=== PATIENT | female | born 1995 | race Caucasian/White ===

== ENCOUNTER 2016-09-30 19:18 | Emergency (ER) | payer MEDICAID ==
[2016-09-30 19:49] VITALS: BP 127/73
[2016-09-30] MEDS ORDERED: LORazepam 0.5 MG Tab PO ONE (20:21)
[2016-09-30] MEDS ORDERED: Ketorolac 30 MG/ML SDV IM ONE (23:00)
--- NOTE | 2016-09-30 23:09 | EDM.PDOC ---
ED [facility] Behavioral Health - General Chief Complaint: Behavioral/Psych Stated Complaint: SOB CHEST PAIN LEFT SIDE POSSIBLE ANXIETY ATTACK Time Seen by Provider: 09/30/16 20:28 Source of Information: Reports: Patient Exam Limitations: Reports: No limitations - History of Present Illness INITIAL COMMENTS - FREE TEXT/NARRATIVE: Patient presents for evaluation and treatment of shortness of breath and chest pain. Patient reports that the chest pain and shortness of breath is related to her anxiety. She feels she is having a panic attack. Additionally she reports tingling to the face lips and fingertips. She reports that she sees Dr. ricardo at [facility] who prescribes her something for her anxiety. - Related Data Allergies Allergy/AdvReac Type Severity Reaction Status Date / Time amoxicillin Allergy Hives Verified 05/09/16 20:22 Home Medications: Home Meds LORazepam [Ativan] 0.5 mg PO Q6H PRN #15 tablet 09/30/16 [Rx] Topiramate [Topamax] 100 mg PO DAILY 09/30/16 [History] Venlafaxine [Effexor] 150 mg PO DAILY 09/30/16 [History] busPIRone [Buspar] 10 mg PO TID 09/30/16 [History] Face Pain Score (Numeric/FACES): 8 Past Medical History HEENT History: Reports: Impaired vision Other HEENT History: glasses Respiratory History: Reports: Asthma Other Respiratory History: bronchiole asthma Gastrointestinal History: Reports: Gastritis Genitourinary History: Reports: UTI, recurrent Other Genitourinary History: uti 2012 Neurological History: Reports: Migraines Psychiatric History: Reports: ADHD, Anxiety, Depression, Other (see below) Other Psychiatric History: mood disorder Other Oncologic History: stomach biopsy - Past Surgical History HEENT Surgical History: Reports: Oral surgery Female Surgical History: Reports: None Social & Family History - Family History Family Medical History: Noncontributory - Tobacco Use Smoking Status *Q: Current Every Day Smoker Years of Tobacco use: 3 Packs/Tins Daily: 1 Used Tobacco, but Quit: Yes Month Tobacco Last Used: 1 month Second Hand Smoke Exposure: No - Caffeine Use Caffeine Use: Reports: None - Recreational Drug Use Recreational Drug Use: Yes Drug Use in Last 12 Months: Yes Recreational Drug Type: Reports: Methamphetamine Other Recreational Drug Type: used 9 months ago Recreational Drug Use Frequency: Monthly - Living Situation & Occupation Living situation: Reports: single, with significant other (Boyfriend), with family (Son) Occupation: unemployed ED ROS GENERAL - Review of Systems Review Of Systems: See Below Respiratory: Reports: Shortness of Breath Cardiovascular: Reports: Chest pain Neurological: Reports: Headache, Numbness, Tingling (face, lips, finger tips) Psychiatric: Reports: Anxiety ED EXAM, BEHAVIORAL HEALTH - Physical Exam Exam: See Below Exam Limited By: No limitations General Appearance: alert, WD/WN, no apparent distress Ears: normal external exam Throat/Mouth: Normal inspection, Normal voice, No airway compromise Respiratory/Chest: no respiratory distress, lungs clear, normal breath sounds Cardiovascular: normal peripheral pulses, regular rate, rhythm, no murmur Neurological: alert, normal mood/affect, normal cognition Psychiatric: alert, normal affect, normal cognition, normal mood Skin Exam: Warm, Dry COURSE, BEHAVIORAL HEALTH COMP - Course Vital Signs: Last Vital Signs Temp 36.9 C 09/30/16 19:47 Pulse 98 09/30/16 19:47 Resp 20 09/30/16 19:47 BP 127/73 09/30/16 19:47 Pulse Ox 97 09/30/16 19:47 Orders, Labs, Meds: Laboratory Tests 09/30/16 09/30/16 09/30/16 Range/Units 20:30 20:30 20:30 WBC 5.13 (3.98-10.04) K/mm3 RBC 4.08 (3.98-5.22) M/mm3 Hgb 12.6 (11.2-15.7) gm/L Hct 38.0 (34.1-44.9) % MCV 93.1 (79.4-94.8) fl MCH 30.9 (25.6-32.2) pg MCHC 33.2 (32.2-35.5) g/dl RDW Std Deviation 44.9 (36.4-46.3) fL Plt Count 221 (182-369) K/mm3 MPV 10.7 (9.4-12.3) fl Sodium 140 (136-145) mEq/L Potassium 3.5 (3.5-5.1) mEq/L Chloride 105 (98-107) mEq/L Carbon Dioxide 26 (21-32) mEq/L Anion Gap 12.5 (5-15) BUN 20 H (7-18) mg/dL Creatinine 0.7 (0.55-1.02) mg/dL Est Cr Clr Drug Dosing 100.98 mL/min Estimated GFR (MDRD) > 60 (>60) mL/min BUN/Creatinine Ratio 28.6 H (14-18) Glucose 84 (74-106) mg/dL Calcium 8.8 (8.5-10.1) mg/dL Total Bilirubin 0.6 (0.2-1.0) mg/dL AST 14 L (15-37) U/L ALT 16 (14-59) U/L Alkaline Phosphatase 78 (46-116) U/L Total Protein 7.0 (6.4-8.2) g/dl Albumin 4.0 (3.4-5.0) g/dl Globulin 3.0 gm/dL Albumin/Globulin Ratio 1.3 (1-2) TSH 3rd Generation 0.750 (0.516-4.13) uIU/mL Urine HCG, Qual Negative (NEGATIVE) Medications Discontinued Medications Generic Name Dose Route Start Last Admin Trade Name Tachoq PRN Reason Stop Dose Admin Ketorolac Tromethamine 30 mg 09/30/16 23:00 09/30/16 23:10 Toradol IM 09/30/16 23:01 30 mg ONETIME ONE Administration Lorazepam 0.5 mg 09/30/16 20:21 09/30/16 20:33 Ativan PO 09/30/16 20:22 0.5 mg ONETIME ONE Administration Re-Assessment/Re-Exam: 23:00 Patient's lab studies have returned. WBC is 5.13, hemoglobin 12.6 and platelets 221. Sodium 140, potassium 3.5 chloride 105. Anion gap is 2.5. HCG is negative. TSH is 0.75. Patient reports that her anxiety and symptoms have resolved. She states she is having a headache. Will give Toradol for headache relief. Departure - Departure Time of Disposition: 23:38 Disposition: Home, Self-Care 01 Condition: good Clinical Impression: Anxiety Prescriptions: LORazepam [Ativan] 0.5 mg PO Q6H PRN #15 tablet PRN Reason: Anxiety Instructions: Panic Attacks, [id number] Referrals: Tulio Solis MD [Primary Care Provider] - Forms: ED Department Discharge Additional Instructions: You were given medication in the ER that can affect your ability to drive and operate machinery. No driving operating machinery within 12 hours of taking. Take the Ativan one tab every 6-8 hours as needed for anxiety. Do not drive or operate machinery within 12 hours of taking ativan. Ativan can make you drowsy. Follow up with her psychiatrist, Dr. ricardo. Please return here should her symptoms change or worsen. Go home and rest in a dark quiet room.
== END 2016-10-01 00:30 | disposition home or self-care (01) ==
LOC: JD.ED 19:18
DX: F41.9 Anxiety disorder, unspecified (principal); F17.210 Nicotine dependence, cigarettes, uncomplicated; F32.9 Major depressive disorder, single episode, unspecified; Z98.890 Other specified postprocedural states; Z88.1 Allergy status to other antibiotic agents; Z79.899 Other long term (current) drug therapy
CPT/HCPCS: 36415; 80053; 81025; 84443; 85027; 96372; 99285; A9270; J1885; 99283

== ENCOUNTER 2019-09-08 12:44 | Emergency (ER) | payer MEDICAID ==
[2019-09-08] MEDS ORDERED: FLU Vacc QS2019-20(6MOS+)/PF 60 MCG/0.5 ML SYRINGE IM ONE (13:30)
--- NOTE | 2019-09-08 13:31 | EDM.PDOC ---
ED HPI GENERAL MEDICAL PROBLEM - General Chief Complaint: Abdominal Pain Stated Complaint: 8 wks pg, having issues wants to be checked out Time Seen by Provider: 09/08/19 12:53 Source of Information: Reports: Patient, Other (Friend) History Limitations: Reports: No Limitations - History of Present Illness INITIAL COMMENTS - FREE TEXT/NARRATIVE: Ms. Brown is a pleasant 24-year-old woman with a past medical history significant only for untreated gastritis, who now presents to the ED stating that she is about 8 weeks gestation, and has had intermittent pelvic cramps for the past 2 days. No vaginal bleeding. She states that she had a positive test about 2-1/2 weeks ago (early August), therefore visited a women 's clinic in [place]. She states that an obstetric ultrasound showed an empty gestational sac, therefore she was told that she either had a very early , a possible impending miscarriage, or a possible tubal . She has not followed up following that visit. She is here to have her checked out. She also reports a thick, white, and non-malodorous vaginal discharge for the past 2-1/2 weeks. LMP 07/12/2019 -> 8w 2d by dates, [place] 04/17/2020. . Her blood type is O-Pos. The patient states that she just moved up to this area a few days ago, and has not established a PCP. She states that she has seen Dr. Tulio Solis in the past, but does not have an dial mounter at this time. She has not received an influenza vaccine this season, but agreed to receive one here today. - Related Data Allergies Allergy/AdvReac Type Severity Reaction Status Date / Time amoxicillin Allergy Hives Verified 09/08/19 12:58 Home Meds: Home Meds Pnv No.103/Folic/Om3s/Fish Oil [ Gummies] 1 each PO DAILY 09/08/19 [ History] metroNIDAZOLE [Metrogel-Vaginal] 1 applicful VG BEDTIME #5 dose 09/08/19 [Rx] Past Medical History HEENT History: Reports: Impaired Vision Other HEENT History: wears glasses Gastrointestinal History: Reports: Gastritis (untreated) : 3 Para: 2 Psychiatric History: Reports: Addiction (methamphetamine), Anxiety (untreated), Depression (untreated) - Infectious Disease History Infectious Disease History: Reports: Human Papilloma Virus (HPV) - Past Surgical History HEENT Surgical History: Reports: Oral Surgery (wisdom teeth extraction) GI Surgical History: Reports: EGD (x 2) Female Surgical History: Reports: Other (See Below) (Cervical colposcopy) Social & Family History - Family History Family Medical History: Noncontributory - Tobacco Use Smoking Status *Q: Current Some Day Smoker Tobacco Use Within Last Twelve Months: Vaping (nicotine) Years of Tobacco use: 4 Packs/Tins Daily: 0.1 - Caffeine Use Caffeine Use: Reports: Soda - Alcohol Use Alcohol Use History: No - Recreational Drug Use Recreational Drug Use: Yes Drug Use in Last 12 Months: Yes Recreational Drug Type: Reports: Marijuana/Hashish (last smoked around Feb 2019) , Methamphetamine (last snorted, smoked early Aug 2019) - Living Situation & Occupation Living situation: Reports: Single, with Family Occupation: Unemployed ED ROS GENERAL - Review of Systems Review Of Systems: Comprehensive ROS is negative, except as noted in HPI. ED EXAM - Physical Exam Exam: See Below Exam Limited By: No Limitations General Appearance: Alert, WD/WN, No Apparent Distress Eye Exam: Bilateral Eye: EOMI, Normal Inspection Ears: Normal External Exam, Hearing Grossly Normal Nose: Normal Inspection Throat/Mouth: Normal Inspection, Normal Lips, Normal Voice, No Airway Compromise Head: Atraumatic, Normocephalic Neck: Normal Inspection, Full Range of Motion Respiratory/Chest: No Respiratory Distress, Lungs Clear, Normal Breath Sounds, No Accessory Muscle Use Cardiovascular: Normal Peripheral Pulses, Regular Rate, Rhythm, No Edema, No Gallop, No JVD, No Murmur, No Rub GI/Abdominal Exam: Normal Bowel Sounds, Soft, No Organomegaly, No Distention, No Abnormal Bruit, No Mass, Tender (Minimal, suprapubic only. Nontender elsewhere.) Rectal Exam: Deferred (Female) Exam: Normal External Exam, Normal Speculum Exam (parous cervix, closed), Vaginal Discharge (normal-appearing white vaginal discharge). No: Cervical Discharge, Cervical Lesions, Cervix Motion Tenderness, Vaginal Bleeding , Vaginal Lesions Back Exam: Normal Inspection, Full Range of Motion. No: CVA Tenderness (L), CVA Tenderness (R) Extremities: Normal Inspection, Normal Range of Motion, No Pedal Edema, Normal Capillary Refill Neurological: Alert, Oriented, Normal Cognition, No Motor/Sensory Deficits Psychiatric: Normal Affect Skin Exam: Warm, Dry, Intact, Normal Color, No Rash Course - Vital Signs Last Recorded V/S: Last Vital Signs Temp 36.8 C 09/08/19 12:53 Pulse 85 09/08/19 12:53 Resp 16 09/08/19 12:53 BP 109/70 09/08/19 12:53 Pulse Ox 100 09/08/19 12:53 - Orders/Labs/Meds Orders: Active Orders 24 hr Category Date Time Status Influenza Vaccine Charge [RC] .DISCHARGE Care 09/08/19 13:16 Active CULTURE GENITAL [RM] Stat Lab 09/08/19 13:30 Received Labs: Laboratory Tests 09/08/19 09/08/19 Range/Units 13:30 13:36 HCG, Quant 96204.0 mIU/mL C trachomatis DNA (PCR) Not detected N gonorrhoeae DNA (PCR) Not detected Meds: Medications Discontinued Medications Generic Name Dose Route Start Last Admin Trade Name Freq PRN Reason Stop Dose Admin Influenza Virus Vaccine 60 mcg 09/08/19 13:30 09/08/19 14:11 Fluzone Quad [id number] Syringe IM 09/08/19 13:31 60 mcg .ONCE ONE Administration - Re-Assessments/Exams Free Text/Narrative Re-Assessment/Exam: 09/08/19 13:20 As above, the patient would like to have her checked out. I have ordered a quantitative hCG and an obstetric ultrasound. Because of her complaint of a thick, white, non-malodorous vaginal discharge for the past 1/2 weeks, I will perform a pelvic exam and collected GC/chlamydia, wet prep, and a vaginal culture. 09/08/19 13:31 On pelvic examination, I found no abnormalities. Her cervix is parous, closed, with no lesions, bleeding, tissue, or discharge. Wet prep, vaginal culture, and GC/chlamydia collected. 09/08/19 14:53 The patient's quantitative hCG is 57,968. Her wet prep is remarkable for many yeast, few trichomonas, but positive for trichomonas antigen, no clue cells, moderate WBCs, no RBCs, and many epithelial cells. 09/08/19 15:13 Transvaginal ultrasound is read by Dr. Amador as: 1. Small subchorionic hemorrhage. 2. Single intrauterine gestation with dates as noted above. The body of the report indicates a gestational age of 7 weeks 1 day. Based on the above, I will recommend intravaginal MetroGel for 5 days. We are still waiting on the GC/chlamydia results. 09/08/19 16:43 Both the GC and chlamydia by PCR are negative. 09/08/19 16:49 Test results discussed with the patient. I will discharge her home with a prescription for MetroGel for 5 days and a referral to Women's Health. She will be given an influenza vaccine prior to discharge home. Departure - Departure Time of Disposition: 16:49 Disposition: Home, Self-Care 01 Condition: Good Clinical Impression: and not yet delivered in first trimester, Trichomonas infection, Subchorionic hematoma in first trimester - Discharge Information *PRESCRIPTION DRUG MONITORING PROGRAM REVIEWED*: Not Applicable *COPY OF PRESCRIPTION DRUG MONITORING REPORT IN PATIENT SALMA: Not Applicable Referrals: PCP,Bonilla [Primary Care Provider] - Janis Fountain NP [Nurse Practitioner] - Forms: ED Department Discharge Additional Instructions: You were seen in the emergency room for evaluation of your , associated with intermittent cramps for 2 days and a thick, white vaginal discharge. Work-up in the ER included a quantitative hCG, a pelvic culture and wet prep, a pelvic gonorrhea and chlamydia test, and a transvaginal ultrasound. Your quantitative hCG returned at 57,968, which is appropriate for your gestational age, estimated at 7 weeks 1 day by ultrasound. A small subchorionic bleed was found, but does not appear to be an imminent threat to your . Your wet prep found that you have trichomoniasis. A prescription for MetroGel has been sent to the [facility], located just south and across the [address] from [facility]. Insert 1 applicatorful of MetroGel intravaginally each night at bedtime for the next 5 nights. We recommend that you notify all of your sexual partners so that they can be treated, as well. You should not have sexual intercourse with any of your partners until at least 1 week after they have finished their antibiotic treatment. Follow-up with Janis Fountain NP, in the [facility] at the next available appointment. If any other problems, please do not hesitate to return to the ER. *You were given an influenza vaccine during your ER visit.* Sepsis Event Note - Evaluation Sepsis Screening Result: No Definite Risk - Focused Exam Vital Signs: Vital Signs Temp Pulse Resp BP Pulse Ox 09/08/19 12:53 36.8 C 85 16 109/70 100 Date Exam was Performed: 09/08/19 Time Exam was Performed: 16:43 - My Orders Last 24 Hours: My Active Orders 09/08/19 13:16 Influenza Vaccine Charge [RC] .DISCHARGE 09/08/19 13:30 CULTURE GENITAL [RM] Stat - Assessment/Plan Last 24 Hours: My Active Orders 09/08/19 13:16 Influenza Vaccine Charge [RC] .DISCHARGE 09/08/19 13:30 CULTURE GENITAL [RM] Stat
--- NOTE | 2019-09-08 15:08 | US ---
1st trimester obstetrical ultrasound: Multiple real-time images were obtained transvaginally. Comparison: No prior study for current . Dates: LMP: LMP given as 07/12/19, [place] 04/17/20, gestational age 8 weeks 2 days Current ultrasound: [place] 04/25/20, gestational age 7 weeks 1 day Single intrauterine gestation is seen. Amniotic fluid volume is normal. Small embryo and yolk sac are noted. Small subchorionic hemorrhage is noted. Maternal ovary on the left side is seen. Right maternal ovary not visualized. Measurements: Julian-rump length: 0.99 cm - 7 weeks 1 day Heart rate: 148 bpm Impression: 1. Small subchorionic hemorrhage. 2. Single intrauterine gestation with dates as noted above. Diagnostic code #2 This report was dictated in [place] Standard Time
[2019-09-08 15:29] LABS: C. TRACHOMATIS BY PCR NOT DETECTED; N. GONORRHOEAE BY PCR NOT DETECTED
[2019-09-08 17:16] VITALS: BP 110/63; PULSE 70
== END 2019-09-08 17:16 | disposition home or self-care (01) ==
LOC: JD.ED 12:44
DX: O20.8 Other hemorrhage in early pregnancy (principal); O98.311 Other infections with a predominantly sexual mode of transmission complicating pregnancy, first trimester; Z23 Encounter for immunization; O99.331 Smoking (tobacco) complicating pregnancy, first trimester; F17.210 Nicotine dependence, cigarettes, uncomplicated; Z88.1 Allergy status to other antibiotic agents; Z3A.01 Less than 8 weeks gestation of pregnancy
CPT/HCPCS: 36415; 76817; 76817-26; 84702; 87070; 87077; 87106; 87210; 87491; 87591; 87808; 90686; 99283; 99284-25; G0008

== ENCOUNTER 2020-04-09 09:12 | Inpatient (IN) | payer MEDICAID ==
[2020-04-09] MEDS ORDERED: Ondansetron 4 MG/2 ML SDV IVPUSH PRN (09:20)
[2020-04-09] MEDS ORDERED: Lactated Ringers 1,000 ML IV SCH ×2 (09:30→12:15)
[2020-04-09] MEDS ORDERED: Lactated Ringers 1,000 ML ONE (11:55)
[2020-04-09] MEDS ORDERED: Alum Hydrox/Mag Hydrox/Simeth 30 ML, Lidocaine 2% 15 ML PO ONE ×2 (12:00)
[2020-04-09] MEDS: Potassium Chloride 10 MEQ in Premix Bag 1 BAG IV SCH ×4 (12:30→15:38)
[2020-04-09] MEDS: Nalbuphine 10 MG/ML Syringe IVPUSH PRN ×3 (12:45→21:21)
[2020-04-09] MEDS ORDERED: Lidocaine 1% 50 ML MDV INJECT ONE (20:52)
[2020-04-09] MEDS ORDERED: Acetaminophen 325 MG Tab PO PRN (20:52)
[2020-04-09] MEDS ORDERED: Sodium Chloride 0.9% 10 ML Syringe FLUSH PRN (20:52)
[2020-04-09] MEDS ORDERED: Oxytocin/Lactated Ringers 10 UNIT/1,000 ML BAG IV SCH ×2 (21:00)
[2020-04-10] MEDS: Nalbuphine 10 MG/ML Syringe IVPUSH PRN ×3 (00:10→08:00)
[2020-04-10] MEDS: Calcium Carbonate 500 MG Tab.Chew PO PRN ×4 (00:15→22:10)
[2020-04-10] MEDS: Lactated Ringers 1,000 ML IV SCH ×2 (02:07→05:24)
[2020-04-10] MEDS ORDERED: ePHEDrine 50 MG/ML SDV IVPUSH PRN (04:54)
[2020-04-10] MEDS ORDERED: fentaNYL 100 MCG/2 ML SDV EPIDUR PRN (04:54)
[2020-04-10] MEDS ORDERED: diphenhydrAMINE 50 MG/ML SDV IVPUSH PRN (04:54)
[2020-04-10] MEDS ORDERED: Bupivacaine/fentaNYL/NS 100 ML Bag EPIDUR PRN (04:54)
--- NOTE | 2020-04-10 05:54 | PCM.PREANE ---
Preanesthetic Assessment - Procedure Proposed Procedure: Continuous Labor Epidural - Anesthesia/Transfusion/Family Hx Anesthesia History: Prior Anesthesia Without Reaction Transfusion History: No Prior Transfusion(s) - Review of Systems General: No Symptoms Pulmonary: No Symptoms Cardiovascular: No Symptoms Gastrointestinal: Nausea, Vomiting, Other (patient had/has food poisoning recently) Neurological: No Symptoms Other: Reports: None - Physical Assessment NPO Status Date: 04/10/20 (full stomach) Vital Signs: Last Vital Signs Temp 36.7 C 04/09/20 20:58 Pulse 83 04/09/20 20:58 Resp 16 04/09/20 20:58 BP 120/71 04/09/20 20:58 Pulse Ox 97 04/09/20 20:58 Height: 5 ft 3 in Weight: 69.853 kg ASA Class: 1 Mental Status: Alert & Oriented x3 Airway Class: Mallampati = 2 Dentition: Reports: Normal Dentition Thyro-Mental Finger Breadths: 3 Mouth Opening Finger Breadths: 3 ROM/Head Extension: Full Lungs: Clear to Auscultation, Normal Respiratory Effort Cardiovascular: Regular Rate, Regular Rhythm - Lab Values: Laboratory Last Values WBC 8.26 K/mm3 (3.98-10.04) 04/09/20 10:24 RBC 2.95 M/mm3 (3.98-5.22) L 04/09/20 10:24 Hgb 9.0 gm/dl (11.2-15.7) L 04/09/20 10:24 Hct 28.9 % (34.1-44.9) L 04/09/20 10:24 MCV 98.0 fl (79.4-94.8) H 04/09/20 10:24 MCH 30.5 pg (25.6-32.2) 04/09/20 10:24 MCHC 31.1 g/dl (32.2-35.5) L 04/09/20 10:24 RDW Std Deviation 49.9 fL (36.4-46.3) H 04/09/20 10:24 Plt Count 178 K/mm3 (182-369) L 04/09/20 10:24 MPV 11.3 fl (9.4-12.3) 04/09/20 10:24 Neut % (Auto) 71.2 % (34.0-71.1) H 04/09/20 10:24 Lymph % (Auto) 15.3 % (19.3-51.7) L 04/09/20 10:24 [place] % (Auto) 12.5 % (4.7-12.5) 04/09/20 10:24 Eos % (Auto) 0.2 (0.7-5.8) L 04/09/20 10:24 Baso % (Auto) 0.1 % (0.1-1.2) 04/09/20 10:24 Neut # (Auto) 5.88 K/mm3 (1.56-6.13) 04/09/20 10:24 Lymph # (Auto) 1.26 K/mm3 (1.18-3.74) 04/09/20 10:24 [place] # (Auto) 1.03 K/mm3 (0.24-0.36) H 04/09/20 10:24 Eos # (Auto) 0.02 K/mm3 (0.04-0.36) L 04/09/20 10:24 Baso # (Auto) 0.01 K/mm3 (0.01-0.08) 04/09/20 10:24 Sodium 133 mEq/L (136-145) L 04/09/20 10:24 Potassium 2.7 mEq/L (3.5-5.1) L 04/09/20 10:24 Chloride 97 mEq/L (98-107) L 04/09/20 10:24 Carbon Dioxide 25 mEq/L (21-32) 04/09/20 10:24 Anion Gap 13.7 (5-15) 04/09/20 10:24 BUN 10 mg/dL (7-18) 04/09/20 10:24 Creatinine 0.8 mg/dL (0.55-1.02) 04/09/20 10:24 Est Cr Clr Drug Dosing 89.70 mL/min 04/09/20 10:24 Estimated GFR (MDRD) > 60 mL/min (>60) 04/09/20 10:24 BUN/Creatinine Ratio 12.5 (14-18) L 04/09/20 10:24 Glucose 81 mg/dL (74-106) 04/09/20 10:24 Calcium 10.0 mg/dL (8.5-10.1) 04/09/20 10:24 Total Bilirubin 0.7 mg/dL (0.2-1.0) 04/09/20 10:24 AST 17 U/L (15-37) 04/09/20 10:24 ALT 17 U/L (14-59) 04/09/20 10:24 Alkaline Phosphatase 108 U/L (46-116) 04/09/20 10:24 Total Protein 6.1 g/dl (6.4-8.2) L 04/09/20 10:24 Albumin 2.7 g/dl (3.4-5.0) L 04/09/20 10:24 Globulin 3.4 gm/dL 04/09/20 10:24 Albumin/Globulin Ratio 0.8 (1-2) L 04/09/20 10:24 Urine Color Yellow (Yellow) 04/09/20 09:20 Urine Appearance Clear (Clear) 04/09/20 09:20 Urine pH 6.0 (5.0-8.0) 04/09/20 09:20 Ur Specific [place] > or = 1.030 (1.005-1.030) 04/09/20 09:20 Urine Protein Trace (Negative) H 04/09/20 09:20 Urine Glucose (UA) Negative (Negative) 04/09/20 09:20 Urine Ketones 4+ (Negative) H 04/09/20 09:20 Urine Occult Blood Negative (Negative) 04/09/20 09:20 Urine Nitrite Negative (Negative) 04/09/20 09:20 Urine Bilirubin Negative (Negative) 04/09/20 09:20 Urine Urobilinogen 0.2 (0.2-1.0) 04/09/20 09:20 Ur Leukocyte Esterase 1+ (Negative) H 04/09/20 09:20 Urine RBC 0-5 /hpf (0-5) 04/09/20 09:20 Urine WBC 10-20 /hpf (0-5) H 04/09/20 09:20 Ur Epithelial Cells 10-20 /hpf (0-5) H 04/09/20 09:20 Urine Bacteria Few /hpf (FEW) 04/09/20 09:20 Urine Mucus Not seen /hpf (FEW) 04/09/20 09:20 Urine Opiates Screen Negative (ADMWAM=411) 04/09/20 10:30 Ur Buprenorphine Scrn Negative (CUTOFF=10) 04/09/20 10:30 Ur Oxycodone Screen Negative (TEA3EQ=723) 04/09/20 10:30 Urine Methadone Screen Negative (ZYDCWP=805) 04/09/20 10:30 Ur Propoxyphene Screen Negative (WCPZJM=484) 04/09/20 10:30 Ur Barbiturates Screen Negative (OLHXOM=411) 04/09/20 10:30 Ur Tricyclics Screen Negative (ETANLQ=952) 04/09/20 10:30 Ur Phencyclidine Scrn Negative (CUTOFF=25) 04/09/20 10:30 Ur Amphetamine Screen Negative (EUNLFL=943) 04/09/20 10:30 U Methamphetamines Scrn Negative (PGHPWG=938) 04/09/20 10:30 U Benzodiazepines Scrn Negative (RUWUXA=734) 04/09/20 10:30 U Cocaine Metab Screen Negative (PYEQHX=759) 04/09/20 10:30 U Marijuana (THC) Screen Presumptive positive (CUTOFF=50) H 04/09/20 10:30 RPR Non-reactive (NONREACTIVE) 04/09/20 21:15 SARS-CoV-2 RNA (LEESA) Negative (NEGATIVE) 04/09/20 21:13 - Allergies Allergies/Adverse Reactions: Allergies Allergy/AdvReac Type Severity Reaction Status Date / Time amoxicillin Allergy Hives Verified 04/09/20 21:01 - Acknowledgements Anesthesia Type Planned: Epidural Pt an Appropriate Candidate for the Planned Anesthesia: Yes Alternatives and Risks of Anesthesia Discussed w Pt/Guardian: Yes Pt/Guardian Understands and Agrees with Anesthesia Plan: Yes PreAnesthesia Questionnaire - Past Health History Medical/Surgical History: Denies Medical/Surgical History HEENT History: Reports: Impaired Vision Other HEENT History: wears glasses Cardiovascular History: Reports: None Respiratory History: Reports: Asthma Other Respiratory History: bronchiole asthma Gastrointestinal History: Reports: Gastritis, Other (See Below) Other Gastrointestinal History: history of gallbladder complications needs tohave gallbladder removed Genitourinary History: Reports: UTI, Recurrent Other Genitourinary History: uti 2013 [employer] History: Reports: Musculoskeletal History: Reports: None Neurological History: Reports: Migraines Psychiatric History: Reports: Addiction, Anxiety, Depression, Other (See Below) Other Psychiatric History: boarderline personality disorder. history of depression Endocrine/Metabolic History: Reports: None Hematologic History: Reports: None Immunologic History: Reports: None Other Oncologic History: stomach biopsy Dermatologic History: Reports: None - Infectious Disease History Infectious Disease History: Reports: Human Papilloma Virus (HPV) - Past Surgical History HEENT Surgical History: Reports: Oral Surgery GI Surgical History: Reports: EGD Female Surgical History: Reports: Other (See Below) - SUBSTANCE USE Smoking Status *Q: Former Smoker Tobacco Use Within Last Twelve Months: Vaping Second Hand Smoke Exposure: Yes Recreational Drug Use History: No - HOME MEDS Home Medications: Home Meds Pnv No.95/Ferrous Fum/Folic AC [ Tablet] 1 each PO DAILY 04/06/20 [History] Ondansetron [Zofran] 4 mg PO Q4H PRN 04/09/20 [History] Promethazine [Phenergan] 12.5 mg PO Q6H PRN 04/09/20 [History] - CURRENT (IN HOUSE) MEDS Current Meds: Current Medications Acetaminophen (Tylenol) 650 mg PO Q4H PRN PRN Reason: Pain (Mild 1-3) and fever Calcium Carbonate/Glycine (Tums) 1,000 mg PO Q2H PRN PRN Reason: Indigestion Last Admin: 04/10/20 00:15 Dose: 1,000 mg Documented by: Diphenhydramine HCl (Benadryl) 25 mg IVPUSH Q6H PRN PRN Reason: pruritis Ephedrine Sulfate (Ephedrine Sulfate) 5 mg IVPUSH ASDIRECTED PRN PRN Reason: Hypotension Fentanyl (Sublimaze) 100 mcg EPIDUR Q3H PRN PRN Reason: Pain Last Admin: 04/10/20 05:12 Dose: 100 mcg Documented by: Fentanyl/Bupivacaine HCl (Fentanyl/Bupivacaine/Ns 2 Mcg-0.125% 100 Ml) 100 ml EPIDUR ASDIRECTED PRN PRN Reason: Pain Last Admin: 04/10/20 05:13 Dose: 100 ml Documented by: Lactated Ringer's (Ringers, Lactated) 1,000 mls @ 100 mls/hr IV ASDIRECTED LOREN Last Admin: 04/10/20 05:24 Dose: 100 mls/hr Documented by: Oxytocin/Lactated Ringer's (Pitocin In Lr 10 Units/1,000 Ml) 10 unit in 1,000 mls @ 12 mls/hr IV TITRATE LOREN; Protocol Last Titration: 04/10/20 05:30 Dose: 6 munits/min, 36 mls/hr Documented by: Oxytocin/Lactated Ringer's (Pitocin In Lr 10 Units/1,000 Ml) 10 unit in 1,000 mls @ 500 mls/hr IV .CONTINUOUS LOREN Nalbuphine HCl (Nubain) 10 mg IVPUSH Q2H PRN PRN Reason: Pain Last Admin: 04/10/20 02:10 Dose: 10 mg Documented by: Ondansetron HCl (Zofran) 4 mg IVPUSH Q4H PRN PRN Reason: Nausea/Vomiting Last Admin: 04/09/20 09:47 Dose: 4 mg Documented by: Sodium Chloride (Saline Flush) 10 ml FLUSH ASDIRECTED PRN PRN Reason: Keep Vein Open Discontinued Medications Al Hydroxide/Mg Hydroxide 30 (ml/ Lidocaine HCl 15 ml) 0 ml PO ONETIME ONE Stop: 04/09/20 12:01 Last Admin: 04/09/20 12:00 Dose: 30 ml Documented by: Lactated Ringer's (Ringers, Lactated) 1,000 mls @ 500 mls/hr IV .BOLUS LOREN Last Admin: 04/09/20 09:46 Dose: 500 mls/hr Documented by: Lactated Ringer's (Ringers, Lactated) Confirm Administered Dose 1,000 mls @ as directed .ROUTE .STK-MED ONE Stop: 04/09/20 11:56 Last Admin: 04/09/20 21:26 Dose: Not Given Documented by: Lactated Ringer's (Ringers, Lactated) 1,000 mls @ 999 mls/hr IV .BOLUS LOREN Last Admin: 04/09/20 12:00 Dose: 999 mls/hr Documented by: Potassium Chloride 10 meq/ (Premix) 100 mls @ 100 mls/hr IV Q1H LOREN Stop: 04/09/20 16:14 Last Admin: 04/09/20 15:38 Dose: 100 mls/hr Documented by: Lidocaine HCl (Xylocaine 1%) 50 ml INJECT ONETIME ONE Stop: 04/09/20 20:53 Nalbuphine HCl (Nubain) 10 mg IVPUSH Q2H PRN PRN Reason: Pain Last Admin: 04/09/20 16:53 Dose: 10 mg Documented by:
--- NOTE | 2020-04-10 08:41 | PCM.LDHP ---
L&D History of Present Illness - General Date of Service: 04/09/20 Admit Problem/Dx: Patient Status Order with Admit Dx/Problem 04/09/20 09:20 Patient Status [ADT] Routine 04/09/20 22:15 Patient Status [ADT] Routine Admission Diagnosis/Problem Admission Diagnosis/Problem Source of Information: Patient History Limitations: Reports: No Limitations - History of Present Illness Introduction:: 25 year old at 37w1 was here for gastroenteritis vs gall bladder pain. Significant vomiting and requiring IV fluids. During k-run began having regular contractions and over 4 hours changed from 3cm to 5 cm so admitted for labor. Pain Score: 7 - Related Data Allergies/Adverse Reactions: Allergies Allergy/AdvReac Type Severity Reaction Status Date / Time amoxicillin Allergy Hives Verified 04/09/20 21:01 Home Medications: Home Meds Pnv No.95/Ferrous Fum/Folic AC [ Tablet] 1 each PO DAILY 04/06/20 [History] Ondansetron [Zofran] 4 mg PO Q4H PRN 04/09/20 [History] Promethazine [Phenergan] 12.5 mg PO Q6H PRN 04/09/20 [History] Past Medical History - Past Health History Medical/Surgical History: Denies Medical/Surgical History HEENT History: Reports: Impaired Vision Other HEENT History: wears glasses Cardiovascular History: Reports: None Respiratory History: Reports: Asthma Other Respiratory History: bronchiole asthma Gastrointestinal History: Reports: Gastritis, Other (See Below) Other Gastrointestinal History: history of gallbladder complications needs toha ve gallbladder removed Genitourinary History: Reports: UTI, Recurrent Other Genitourinary History: uti 2013 [employer] History: Reports: Musculoskeletal History: Reports: None Neurological History: Reports: Migraines Psychiatric History: Reports: Addiction, Anxiety, Depression, Other (See Below) Other Psychiatric History: boarderline personality disorder. history of depression Endocrine/Metabolic History: Reports: None Hematologic History: Reports: None Immunologic History: Reports: None Other Oncologic History: stomach biopsy Dermatologic History: Reports: None - Infectious Disease History Infectious Disease History: Reports: Human Papilloma Virus (HPV) - Past Surgical History HEENT Surgical History: Reports: Oral Surgery GI Surgical History: Reports: EGD Female Surgical History: Reports: Other (See Below) Social & Family History - Family History Family Medical History: Noncontributory - Tobacco Use Smoking Status *Q: Former Smoker Years of Tobacco use: 6 Used Tobacco, but Quit: Yes Month/Year Tobacco Last Used: 08/30/2019 Second Hand Smoke Exposure: Yes - Caffeine Use Caffeine Use: Reports: Soda - Recreational Drug Use Recreational Drug Use: No - Living Situation & Occupation Living situation: Reports: Single, with Family Occupation: Unemployed H&P Review of Systems - Review of Systems: Review Of Systems: See Below General: Reports: No Symptoms. Denies: Fever HEENT: Reports: No Symptoms Pulmonary: Reports: No Symptoms Cardiovascular: Reports: No Symptoms Gastrointestinal: Reports: Abdominal Pain, Nausea, Vomiting Genitourinary: Reports: No Symptoms Musculoskeletal: Reports: No Symptoms Skin: Reports: No Symptoms Psychiatric: Reports: No Symptoms Neurological: Reports: No Symptoms Hematologic/Lymphatic: Reports: No Symptoms Immunologic: Reports: No Symptoms L&D Exam - Exam Exam: See Below - Vital Signs Vital Signs: Last Vital Signs Temp 36.7 C 04/09/20 20:58 Pulse 83 04/09/20 20:58 Resp 16 04/09/20 20:58 BP 120/71 04/09/20 20:58 Pulse Ox 97 04/09/20 20:58 Weight: 69.853 kg - OB Specific Contraction Intensity: Moderate to Strong Movement: Active Heart Tones: Present Heart Tones per Min: 145 Heart Rate (FHR) Variability: Moderate (6-25 bmp) Presentation: Vertex - Aden Score Aden Score Cervix Position: Anterior Aden Score Effacement: >80% Aden Score Dilation: > 5 cm Aden Score 's Station: -2 - Exam General: Alert, Oriented HEENT: PERRLA, Conjunctiva Clear, EACs Clear, EOMI, Hearing Intact, Mucosa Moist & [place], Nares Patent, Normal Nasal Septum, Posterior Pharynx Clear, TMs Clear Neck: Supple, Trachea Midline Lungs: Clear to Auscultation, Normal Respiratory Effort Cardiovascular: Regular Rate, Regular Rhythm GI/Abdominal Exam: Normal Bowel Sounds, Soft, Non-Tender, No Organomegaly, No Distention, No Abnormal Bruit, No Mass, Pelvis Stable Genitourinary: Normal external exam, Normal bimanual exam Back Exam: Normal Inspection, Full Range of Motion Extremities: Normal Inspection, Normal Range of Motion, Non-Tender, No Pedal Edema, Normal Capillary Refill Skin: Warm, Dry, Intact Neurological: Cranial Nerves Intact, Reflexes Equal Bilateral Psychiatric: Alert, Normal Affect, Normal Mood - Patient Data Lab Results Last 24 hrs: Laboratory Results - last 24 hr 04/09/20 04/09/20 04/09/20 Range/Units 09:20 10:24 10:24 WBC 8.26 (3.98-10.04) K/mm3 RBC 2.95 L (3.98-5.22) M/mm3 Hgb 9.0 L (11.2-15.7) gm/dl Hct 28.9 L (34.1-44.9) % MCV 98.0 H (79.4-94.8) fl MCH 30.5 (25.6-32.2) pg MCHC 31.1 L (32.2-35.5) g/dl RDW Std Deviation 49.9 H (36.4-46.3) fL Plt Count 178 L (182-369) K/mm3 MPV 11.3 (9.4-12.3) fl Neut % (Auto) 71.2 H (34.0-71.1) % Lymph % (Auto) 15.3 L (19.3-51.7) % [place] % (Auto) 12.5 (4.7-12.5) % Eos % (Auto) 0.2 L (0.7-5.8) Baso % (Auto) 0.1 (0.1-1.2) % Neut # (Auto) 5.88 (1.56-6.13) K/mm3 Lymph # (Auto) 1.26 (1.18-3.74) K/mm3 [place] # (Auto) 1.03 H (0.24-0.36) K/mm3 Eos # (Auto) 0.02 L (0.04-0.36) K/mm3 Baso # (Auto) 0.01 (0.01-0.08) K/mm3 Sodium 133 L (136-145) mEq/L Potassium 2.7 L (3.5-5.1) mEq/L Chloride 97 L (98-107) mEq/L Carbon Dioxide 25 (21-32) mEq/L Anion Gap 13.7 (5-15) BUN 10 (7-18) mg/dL Creatinine 0.8 (0.55-1.02) mg/dL Est Cr Clr Drug Dosing 89.70 mL/min Estimated GFR (MDRD) > 60 (>60) mL/min BUN/Creatinine Ratio 12.5 L (14-18) Glucose 81 (74-106) mg/dL Calcium 10.0 (8.5-10.1) mg/dL Total Bilirubin 0.7 (0.2-1.0) mg/dL AST 17 (15-37) U/L ALT 17 (14-59) U/L Alkaline Phosphatase 108 (46-116) U/L Total Protein 6.1 L (6.4-8.2) g/dl Albumin 2.7 L (3.4-5.0) g/dl Globulin 3.4 gm/dL Albumin/Globulin Ratio 0.8 L (1-2) Urine Color Yellow (Yellow) Urine Appearance Clear (Clear) Urine pH 6.0 (5.0-8.0) Ur Specific [place] > or = 1.030 (1.005-1.030) Urine Protein Trace H (Negative) Urine Glucose (UA) Negative (Negative) Urine Ketones 4+ H (Negative) Urine Occult Blood Negative (Negative) Urine Nitrite Negative (Negative) Urine Bilirubin Negative (Negative) Urine Urobilinogen 0.2 (0.2-1.0) Ur Leukocyte Esterase 1+ H (Negative) Urine RBC 0-5 (0-5) /hpf Urine WBC 10-20 H (0-5) /hpf Ur Epithelial Cells 10-20 H (0-5) /hpf Urine Bacteria Few (FEW) /hpf Urine Mucus Not seen (FEW) /hpf Urine Opiates Screen (GGPCVY=165) Ur Buprenorphine Scrn (CUTOFF=10) Ur Oxycodone Screen (MOZ8SL=001) Urine Methadone Screen (PPCBHR=177) Ur Propoxyphene Screen (WRHYPN=222) Ur Barbiturates Screen (CQETRW=375) Ur Tricyclics Screen (GJLUTI=820) Ur Phencyclidine Scrn (CUTOFF=25) Ur Amphetamine Screen (DTOUKF=186) U Methamphetamines Scrn (OZAZPB=098) U Benzodiazepines Scrn (DPJHXT=568) U Cocaine Metab Screen (TMNUQL=975) U Marijuana (THC) Screen (CUTOFF=50) RPR (NONREACTIVE) SARS-CoV-2 RNA (LEESA) (NEGATIVE) 04/09/20 04/09/20 04/09/20 Range/Units 10:30 21:13 21:15 WBC (3.98-10.04) K/mm3 RBC (3.98-5.22) M/mm3 Hgb (11.2-15.7) gm/dl Hct (34.1-44.9) % MCV (79.4-94.8) fl MCH (25.6-32.2) pg MCHC (32.2-35.5) g/dl RDW Std Deviation (36.4-46.3) fL Plt Count (182-369) K/mm3 MPV (9.4-12.3) fl Neut % (Auto) (34.0-71.1) % Lymph % (Auto) (19.3-51.7) % [place] % (Auto) (4.7-12.5) % Eos % (Auto) (0.7-5.8) Baso % (Auto) (0.1-1.2) % Neut # (Auto) (1.56-6.13) K/mm3 Lymph # (Auto) (1.18-3.74) K/mm3 [place] # (Auto) (0.24-0.36) K/mm3 Eos # (Auto) (0.04-0.36) K/mm3 Baso # (Auto) (0.01-0.08) K/mm3 Sodium (136-145) mEq/L Potassium (3.5-5.1) mEq/L Chloride (98-107) mEq/L Carbon Dioxide (21-32) mEq/L Anion Gap (5-15) BUN (7-18) mg/dL Creatinine (0.55-1.02) mg/dL Est Cr Clr Drug Dosing mL/min Estimated GFR (MDRD) (>60) mL/min BUN/Creatinine Ratio (14-18) Glucose (74-106) mg/dL Calcium (8.5-10.1) mg/dL Total Bilirubin (0.2-1.0) mg/dL AST (15-37) U/L ALT (14-59) U/L Alkaline Phosphatase (46-116) U/L Total Protein (6.4-8.2) g/dl Albumin (3.4-5.0) g/dl Globulin gm/dL Albumin/Globulin Ratio (1-2) Urine Color (Yellow) Urine Appearance (Clear) Urine pH (5.0-8.0) Ur Specific [place] (1.005-1.030) Urine Protein (Negative) Urine Glucose (UA) (Negative) Urine Ketones (Negative) Urine Occult Blood (Negative) Urine Nitrite (Negative) Urine Bilirubin (Negative) Urine Urobilinogen (0.2-1.0) Ur Leukocyte Esterase (Negative) Urine RBC (0-5) /hpf Urine WBC (0-5) /hpf Ur Epithelial Cells (0-5) /hpf Urine Bacteria (FEW) /hpf Urine Mucus (FEW) /hpf Urine Opiates Screen Negative (BSXRHI=343) Ur Buprenorphine Scrn Negative (CUTOFF=10) Ur Oxycodone Screen Negative (FTD5JH=138) Urine Methadone Screen Negative (TCQYPE=580) Ur Propoxyphene Screen Negative (PHIYUT=070) Ur Barbiturates Screen Negative (MBCTUM=085) Ur Tricyclics Screen Negative (KNOKHM=753) Ur Phencyclidine Scrn Negative (CUTOFF=25) Ur Amphetamine Screen Negative (AOIJFD=893) U Methamphetamines Scrn Negative (AILEPS=709) U Benzodiazepines Scrn Negative (VTDCIH=808) U Cocaine Metab Screen Negative (RQNJWF=237) U Marijuana (THC) Screen Presumptive positive H (CUTOFF=50) RPR Non-reactive (NONREACTIVE) SARS-CoV-2 RNA (LEESA) Negative (NEGATIVE) Result Diagrams: 04/09/20 10:24 04/09/20 10:24 Problem List Initiated/Reviewed/Updated: Yes Orders Last 24hrs: Active Orders 24 hr Category Date Time Status Patient Status [ADT] Routine ADT 04/09/20 22:15 Active Activity as Tolerated [RC] PFP Care 04/09/20 20:52 Active Communication Order [RC] ASDIRECTED Care 04/09/20 20:52 Active Heart Tones [RC] ASDIRECTED Care 04/09/20 20:52 Active Notify Provider [RC] ASDIRECTED Care 04/10/20 04:54 Active Notify Provider [RC] PFP Care 04/09/20 20:52 Active Notify Provider [RC] PRN Care 04/09/20 20:52 Active Peripheral IV Care [RC] . DIRECTED Care 04/09/20 20:52 Active Up ad Nadia [RC] ASDIRECTED Care 04/09/20 09:21 Active Vital Signs [RC] PER UNIT ROUTINE Care 04/09/20 09:20 Active Vital Signs [RC] PER UNIT ROUTINE Care 04/09/20 20:52 Active BLOOD BANK HOLD SPECIMEN [BBK] Stat Lab 04/09/20 10:30 Received CANNABINOID (THC) CONFIRM, UR Stat Lab 04/10/20 07:08 Received Acetaminophen [TylenoL] Med 04/09/20 20:52 Active 650 mg PO Q4H PRN Bupivacaine/fentaNYL/NS [fentaNYL/Bupivacaine/NS 2 MCG- Med 04/10/20 04:54 Active 0.125% 100 ML] 100 ml EPIDUR ASDIRECTED PRN Calcium Carbonate [Tums] Med 04/09/20 20:52 Active 1,000 mg PO Q2H PRN Lactated Ringers [Ringers, Lactated] 1,000 ml Med 04/09/20 21:00 Active IV ASDIRECTED Nalbuphine [Nubain] Med 04/09/20 20:52 Active 10 mg IVPUSH Q2H PRN Ondansetron [Zofran] Med 04/09/20 09:20 Active 4 mg IVPUSH Q4H PRN Oxytocin/Lactated Ringers [Pitocin in LR 10 Units/1,000 Med 04/09/20 21:00 Active ML] 10 unit in 1,000 ml IV .CONTINUOUS Oxytocin/Lactated Ringers [Pitocin in LR 10 Units/1,000 Med 04/09/20 21:00 Active ML] 10 unit in 1,000 ml IV TITRATE Sodium Chloride 0.9% [Saline Flush] Med 04/09/20 20:52 Active 10 ml FLUSH ASDIRECTED PRN diphenhydrAMINE [Benadryl] Med 04/10/20 04:54 Active 25 mg IVPUSH Q6H PRN ePHEDrine [ePHEDrine sulfate] Med 04/10/20 04:54 Active 5 mg IVPUSH ASDIRECTED PRN fentaNYL [Sublimaze] Med 04/10/20 04:54 Active 100 mcg EPIDUR Q3H PRN Electronic Heart Tones Ext w TOCO [WOMSER] Oth 04/09/20 20:52 Ordered Routine Electronic Heart Tones Internal [WOMSER] Per Unit Oth 04/09/20 20:52 Ordered Routine Peripheral IV Insertion Adult [OM.PC] Routine Oth 04/09/20 20:52 Ordered Resuscitation Status Routine Resus Stat 04/09/20 20:52 Ordered Medication Orders Acetaminophen (Tylenol) 650 mg PO Q4H PRN PRN Reason: Pain (Mild 1-3) and fever Calcium Carbonate/Glycine (Tums) 1,000 mg PO Q2H PRN PRN Reason: Indigestion Last Admin: 04/10/20 06:36 Dose: 1,000 mg Documented by: Admin: 04/10/20 00:15 Dose: 1,000 mg Documented by: AGA Diphenhydramine HCl (Benadryl) 25 mg IVPUSH Q6H PRN PRN Reason: pruritis Ephedrine Sulfate (Ephedrine Sulfate) 5 mg IVPUSH ASDIRECTED PRN PRN Reason: Hypotension Fentanyl (Sublimaze) 100 mcg EPIDUR Q3H PRN PRN Reason: Pain Last Admin: 04/10/20 05:12 Dose: 100 mcg Documented by: AGA Fentanyl/Bupivacaine HCl (Fentanyl/Bupivacaine/Ns 2 Mcg-0.125% 100 Ml) 100 ml EPIDUR ASDIRECTED PRN PRN Reason: Pain Last Admin: 04/10/20 05:13 Dose: 100 ml Documented by: AGA Lactated Ringer's (Ringers, Lactated) 1,000 mls @ 100 mls/hr IV ASDIRECTED LOREN Last Admin: 04/10/20 05:24 Dose: 100 mls/hr Documented by: Infusion: 04/10/20 05:24 Dose: 100 mls/hr Documented by: Admin: 04/10/20 02:07 Dose: 100 mls/hr Documented by: AGA Oxytocin/Lactated Ringer's (Pitocin In Lr 10 Units/1,000 Ml) 10 unit in 1,000 mls @ 12 mls/hr IV TITRATE LOREN; Protocol Last Titration: 04/10/20 06:30 Dose: 10 munits/min, 60 mls/hr Documented by: Titration: 04/10/20 06:00 Dose: 8 munits/min, 48 mls/hr Documented by: Titration: 04/10/20 05:30 Dose: 6 munits/min, 36 mls/hr Documented by: Titration: 04/10/20 05:00 Dose: 4 munits/min, 24 mls/hr Documented by: Admin: 04/10/20 04:29 Dose: 2 munits/min, 12 mls/hr Documented by: AGA Oxytocin/Lactated Ringer's (Pitocin In Lr 10 Units/1,000 Ml) 10 unit in 1,000 mls @ 500 mls/hr IV .CONTINUOUS LOREN Nalbuphine HCl (Nubain) 10 mg IVPUSH Q2H PRN PRN Reason: Pain Last Admin: 04/10/20 08:00 Dose: 10 mg Documented by: Admin: 04/10/20 02:10 Dose: 10 mg Documented by: Admin: 04/10/20 00:10 Dose: 10 mg Documented by: Admin: 04/09/20 21:21 Dose: 10 mg Documented by: AGA Ondansetron HCl (Zofran) 4 mg IVPUSH Q4H PRN PRN Reason: Nausea/Vomiting Last Admin: 04/09/20 09:47 Dose: 4 mg Documented by: BRENDEN Sodium Chloride (Saline Flush) 10 ml FLUSH ASDIRECTED PRN PRN Reason: Keep Vein Open Assessment/Plan Comment:: Term labor. Cervical change. Admit. Anesthesia per pt request. Anticipate
--- NOTE | 2020-04-10 08:42 | PCM.PNLD ---
Labor Progress Note - VS & Meds Vital Signs: Last Vital Signs Temp 36.7 C 04/09/20 20:58 Pulse 83 04/09/20 20:58 Resp 16 04/09/20 20:58 BP 120/71 04/09/20 20:58 Pulse Ox 97 04/09/20 20:58 Active Medications: Current Medications Acetaminophen (Tylenol) 650 mg PO Q4H PRN PRN Reason: Pain (Mild 1-3) and fever Calcium Carbonate/Glycine (Tums) 1,000 mg PO Q2H PRN PRN Reason: Indigestion Last Admin: 04/10/20 06:36 Dose: 1,000 mg Documented by: Diphenhydramine HCl (Benadryl) 25 mg IVPUSH Q6H PRN PRN Reason: pruritis Ephedrine Sulfate (Ephedrine Sulfate) 5 mg IVPUSH ASDIRECTED PRN PRN Reason: Hypotension Fentanyl (Sublimaze) 100 mcg EPIDUR Q3H PRN PRN Reason: Pain Last Admin: 04/10/20 05:12 Dose: 100 mcg Documented by: Fentanyl/Bupivacaine HCl (Fentanyl/Bupivacaine/Ns 2 Mcg-0.125% 100 Ml) 100 ml EPIDUR ASDIRECTED PRN PRN Reason: Pain Last Admin: 04/10/20 05:13 Dose: 100 ml Documented by: Lactated Ringer's (Ringers, Lactated) 1,000 mls @ 100 mls/hr IV ASDIRECTED LOREN Last Admin: 04/10/20 05:24 Dose: 100 mls/hr Documented by: Oxytocin/Lactated Ringer's (Pitocin In Lr 10 Units/1,000 Ml) 10 unit in 1,000 mls @ 12 mls/hr IV TITRATE LOREN; Protocol Last Titration: 04/10/20 06:30 Dose: 10 munits/min, 60 mls/hr Documented by: Oxytocin/Lactated Ringer's (Pitocin In Lr 10 Units/1,000 Ml) 10 unit in 1,000 mls @ 500 mls/hr IV .CONTINUOUS LOREN Nalbuphine HCl (Nubain) 10 mg IVPUSH Q2H PRN PRN Reason: Pain Last Admin: 04/10/20 08:00 Dose: 10 mg Documented by: Ondansetron HCl (Zofran) 4 mg IVPUSH Q4H PRN PRN Reason: Nausea/Vomiting Last Admin: 04/09/20 09:47 Dose: 4 mg Documented by: Sodium Chloride (Saline Flush) 10 ml FLUSH ASDIRECTED PRN PRN Reason: Keep Vein Open Discontinued Medications Al Hydroxide/Mg Hydroxide 30 (ml/ Lidocaine HCl 15 ml) 0 ml PO ONETIME ONE Stop: 04/09/20 12:01 Last Admin: 04/09/20 12:00 Dose: 30 ml Documented by: Lactated Ringer's (Ringers, Lactated) 1,000 mls @ 500 mls/hr IV .BOLUS LOREN Last Admin: 04/09/20 09:46 Dose: 500 mls/hr Documented by: Lactated Ringer's (Ringers, Lactated) Confirm Administered Dose 1,000 mls @ as directed .ROUTE .STK-MED ONE Stop: 04/09/20 11:56 Last Admin: 04/09/20 21:26 Dose: Not Given Documented by: Lactated Ringer's (Ringers, Lactated) 1,000 mls @ 999 mls/hr IV .BOLUS LOREN Last Admin: 04/09/20 12:00 Dose: 999 mls/hr Documented by: Potassium Chloride 10 meq/ (Premix) 100 mls @ 100 mls/hr IV Q1H LOREN Stop: 04/09/20 16:14 Last Admin: 04/09/20 15:38 Dose: 100 mls/hr Documented by: Lidocaine HCl (Xylocaine 1%) 50 ml INJECT ONETIME ONE Stop: 04/09/20 20:53 Nalbuphine HCl (Nubain) 10 mg IVPUSH Q2H PRN PRN Reason: Pain Last Admin: 04/09/20 16:53 Dose: 10 mg Documented by: - Uterine Contractions Uterine Monitoring Mode: External [place] Contraction Intensity: Moderate to Strong Uterine Resting Tone: Soft - Monitoring Monitor Mode: External Ultrasound Heart Rate (FHR) Baseline: 145 Heart Rate (FHR) Variability: Moderate (6-25 bmp) Accelerations: Present, 15x15 Decelerations: None Strip Review: Category I - Vaginal Exam Dilation (cm): 5.5 Effacement (Percent): 80 Station: -2 Cervical Position: Anterior - Labor Progress (Free Text) Labor Progress: Good progress. AROM clear fluid.
--- NOTE | 2020-04-10 08:45 | PCM.SN.2 ---
- Free Text/Narrative Note: Stage I - Patient presented with nausea, vomiting and began having more regular contractions with cervical change. Epidural anesthesia. AROM cleawr fluid. Progressed to complete with overall reassuring heart tones. Stage II - of viable female, weight pending, apgars 8/9 at 0827. Head delivered in controlled manner over intact perineum. Body and shoulders atraumatically. To maternal abdomen. Positive cry. Cord clamped and cut at one minute. Cord blood collected. Stage III - of intact placenta. 3vc. No laceration. EBL 200.
[2020-04-10] MEDS ORDERED: Benzocaine/Menthol 20%-0.5% Spray 56 GM Canister TOP PRN (09:18)
[2020-04-10] MEDS ORDERED: Witch Hazel Medicated Pads 40/Jar TOP PRN (09:18)
[2020-04-10] MEDS: Ibuprofen 600 MG Tab PO PRN ×3 (09:35→22:08)
[2020-04-10] MEDS ORDERED: Acetaminophen 325 MG Tab PO PRN (21:26)
[2020-04-11] MEDS ORDERED: Ondansetron 4 MG in Sodium Chloride 0.9% 50 ML IV ONE (00:15)
[2020-04-11] MEDS ORDERED: Nalbuphine 10 MG/ML Syringe IVPUSH ONE (00:16)
[2020-04-11] MEDS ORDERED: Sodium Chloride 0.9% 1,000 ML IV ONE (00:17)
[2020-04-11] MEDS ORDERED: Sodium Chloride 0.9% 1,000 ML ONE (00:27)
[2020-04-11] MEDS ORDERED: Ondansetron 4 MG/2 ML SDV IVPUSH ONE (06:00)
[2020-04-11] MEDS ORDERED: Ondansetron 4 MG/2 ML SDV ONE (06:03)
--- NOTE | 2020-04-11 07:49 | PCM.PNPP ---
- General Info Date of Service: 04/11/20 Subjective Update: 25 year old . Complaining of abdominal pain and nausea. Functional Status: Reports: Pain Controlled - Review of Systems General: Reports: No Symptoms HEENT: Reports: No Symptoms Pulmonary: Reports: No Symptoms Cardiovascular: Reports: No Symptoms Gastrointestinal: Reports: No Symptoms Genitourinary: Reports: No Symptoms Musculoskeletal: Reports: No Symptoms Skin: Reports: No Symptoms Neurological: Reports: No Symptoms Psychiatric: Reports: No Symptoms - General Info Date of Service: 04/11/20 - Patient Data Vital Signs - Most Recent: Last Vital Signs Temp 37.0 C 04/11/20 04:07 Pulse 62 04/11/20 04:07 Resp 14 04/11/20 04:07 BP 135/97 H 04/11/20 04:07 Pulse Ox 100 04/11/20 04:07 Weight - Most Recent: 69.853 kg Lab Results - Last 24 Hours: Laboratory Results - last 24 hr 04/11/20 04/11/20 Range/Units 05:56 05:56 WBC 9.71 (3.98-10.04) K/mm3 RBC 3.10 L (3.98-5.22) M/mm3 Hgb 9.4 L (11.2-15.7) gm/dl Hct 30.3 L (34.1-44.9) % MCV 97.7 H (79.4-94.8) fl MCH 30.3 (25.6-32.2) pg MCHC 31.0 L (32.2-35.5) g/dl RDW Std Deviation 48.8 H (36.4-46.3) fL Plt Count 183 (182-369) K/mm3 MPV 11.6 (9.4-12.3) fl Neut % (Auto) 78.1 H (34.0-71.1) % Lymph % (Auto) 13.1 L (19.3-51.7) % [place] % (Auto) 7.8 (4.7-12.5) % Eos % (Auto) 0.3 L (0.7-5.8) Baso % (Auto) 0.1 (0.1-1.2) % Neut # (Auto) 7.58 H (1.56-6.13) K/mm3 Lymph # (Auto) 1.27 (1.18-3.74) K/mm3 [place] # (Auto) 0.76 H (0.24-0.36) K/mm3 Eos # (Auto) 0.03 L (0.04-0.36) K/mm3 Baso # (Auto) 0.01 (0.01-0.08) K/mm3 Sodium 139 (136-145) mEq/L Potassium 3.2 L (3.5-5.1) mEq/L Chloride 104 (98-107) mEq/L Carbon Dioxide 26 (21-32) mEq/L Anion Gap 12.2 (5-15) BUN 8 (7-18) mg/dL Creatinine 0.7 (0.55-1.02) mg/dL Est Cr Clr Drug Dosing 102.51 mL/min Estimated GFR (MDRD) > 60 (>60) mL/min BUN/Creatinine Ratio 11.4 L (14-18) Glucose 99 (74-106) mg/dL Calcium 7.8 L D (8.5-10.1) mg/dL Total Bilirubin 0.3 (0.2-1.0) mg/dL AST 19 (15-37) U/L ALT 18 (14-59) U/L Alkaline Phosphatase 90 (46-116) U/L Total Protein 5.1 L (6.4-8.2) g/dl Albumin 2.1 L (3.4-5.0) g/dl Globulin 3.0 gm/dL Albumin/Globulin Ratio 0.7 L (1-2) Med Orders - Current: Current Medications Acetaminophen (Tylenol) 650 mg PO Q6H PRN PRN Reason: Pain Last Admin: 04/10/20 21:34 Dose: 650 mg Documented by: Benzocaine/Menthol (Dermoplast Pain Relief [place]) 0 gm TOP ASDIRECTED PRN PRN Reason: Perineal Comfort Measure Calcium Carbonate/Glycine (Tums) 1,000 mg PO Q2HR PRN PRN Reason: Indigestion Last Admin: 04/10/20 22:10 Dose: 1,000 mg Documented by: Ibuprofen (Motrin) 600 mg PO Q6H PRN PRN Reason: Mild pain or fever Last Admin: 04/10/20 22:08 Dose: 600 mg Documented by: Debi Santana (Holackjn) 1 pad TOP ASDIRECTED PRN PRN Reason: Pain Discontinued Medications Acetaminophen (Tylenol) 650 mg PO Q4H PRN PRN Reason: Pain (Mild 1-3) and fever Calcium Carbonate/Glycine (Tums) 1,000 mg PO Q2H PRN PRN Reason: Indigestion Last Admin: 04/10/20 06:36 Dose: 1,000 mg Documented by: Al Hydroxide/Mg Hydroxide 30 (ml/ Lidocaine HCl 15 ml) 0 ml PO ONETIME ONE Stop: 04/09/20 12:01 Last Admin: 04/09/20 12:00 Dose: 30 ml Documented by: Diphenhydramine HCl (Benadryl) 25 mg IVPUSH Q6H PRN PRN Reason: pruritis Ephedrine Sulfate (Ephedrine Sulfate) 5 mg IVPUSH ASDIRECTED PRN PRN Reason: Hypotension Fentanyl (Sublimaze) 100 mcg EPIDUR Q3H PRN PRN Reason: Pain Last Admin: 04/10/20 05:12 Dose: 100 mcg Documented by: Fentanyl/Bupivacaine HCl (Fentanyl/Bupivacaine/Ns 2 Mcg-0.125% 100 Ml) 100 ml EPIDUR ASDIRECTED PRN PRN Reason: Pain Last Admin: 04/10/20 05:13 Dose: 100 ml Documented by: Lactated Ringer's (Ringers, Lactated) 1,000 mls @ 500 mls/hr IV .BOLUS LOREN Last Admin: 04/09/20 09:46 Dose: 500 mls/hr Documented by: Lactated Ringer's (Ringers, Lactated) Confirm Administered Dose 1,000 mls @ as directed .ROUTE .STK-MED ONE Stop: 04/09/20 11:56 Last Admin: 04/09/20 21:26 Dose: Not Given Documented by: Lactated Ringer's (Ringers, Lactated) 1,000 mls @ 999 mls/hr IV .BOLUS [place]ORNE Last Admin: 04/09/20 12:00 Dose: 999 mls/hr Documented by: Potassium Chloride 10 meq/ (Premix) 100 mls @ 100 mls/hr IV Q1H LOREN Stop: 04/09/20 16:14 Last Admin: 04/09/20 15:38 Dose: 100 mls/hr Documented by: Lactated Ringer's (Ringers, Lactated) 1,000 mls @ 100 mls/hr IV ASDIRECTED LOREN Last Admin: 04/10/20 05:24 Dose: 100 mls/hr Documented by: Oxytocin/Lactated Ringer's (Pitocin In Lr 10 Units/1,000 Ml) 10 unit in 1,000 mls @ 12 mls/hr IV TITRATE LOREN; Protocol Last Titration: 04/10/20 06:30 Dose: 10 munits/min, 60 mls/hr Documented by: Oxytocin/Lactated Ringer's (Pitocin In Lr 10 Units/1,000 Ml) 10 unit in 1,000 mls @ 500 mls/hr IV .CONTINUOUS LOREN Ondansetron HCl 4 mg/ Sodium (Chloride) 52 mls @ 100 mls/hr IV ONETIME ONE Stop: 04/11/20 00:47 Last Admin: 04/11/20 00:36 Dose: Not Given Documented by: Sodium Chloride (Normal Saline) 1,000 mls @ 1,000 mls/hr IV ONETIME ONE Stop: 04/11/20 01:16 Last Admin: 04/11/20 00:33 Dose: 1,000 mls/hr Documented by: Sodium Chloride (Normal Saline) Confirm Administered Dose 1,000 mls @ as directed .ROUTE .STK-MED ONE Stop: 04/11/20 00:28 Last Admin: 04/11/20 00:35 Dose: Not Given Documented by: Lidocaine HCl (Xylocaine 1%) 50 ml INJECT ONETIME ONE Stop: 04/09/20 20:53 Nalbuphine HCl (Nubain) 10 mg IVPUSH Q2H PRN PRN Reason: Pain Last Admin: 04/09/20 16:53 Dose: 10 mg Documented by: Nalbuphine HCl (Nubain) 10 mg IVPUSH Q2H PRN PRN Reason: Pain Last Admin: 04/10/20 08:00 Dose: 10 mg Documented by: Nalbuphine HCl (Nubain) 10 mg IVPUSH ONETIME ONE Stop: 04/11/20 00:17 Last Admin: 04/11/20 00:33 Dose: 10 mg Documented by: Ondansetron HCl (Zofran) 4 mg IVPUSH Q4H PRN PRN Reason: Nausea/Vomiting Last Admin: 04/09/20 09:47 Dose: 4 mg Documented by: Ondansetron HCl (Zofran) 4 mg IVPUSH ONETIME ONE Stop: 04/11/20 06:01 Last Admin: 04/11/20 06:07 Dose: 4 mg Documented by: Ondansetron HCl (Zofran) Confirm Administered Dose 4 mg .ROUTE .STK-MED ONE Stop: 04/11/20 06:04 Last Admin: 04/11/20 06:08 Dose: Not Given Documented by: Sodium Chloride (Saline Flush) 10 ml FLUSH ASDIRECTED PRN PRN Reason: Keep Vein Open - Infant Interaction Disposition, : [place] to Nursery Infant Interaction: Not Interacting Support Person: Significant Other - Recovery Exam Fundal Tone: Firm Fundal Level: 1 Fingerbreadths Below Umbilicus Fundal Placement: Midline Lochia Amount: Small Lochia Color: Rubra/Red Bladder Status: Voiding Urinary Elimination: Voided - Exam General: Alert, Oriented, Other (anxious) HEENT: Pupils Equal Neck: Supple Lungs: Clear to Auscultation, Normal Respiratory Effort Cardiovascular: Regular Rate, Regular Rhythm GI/Abdominal Exam: Normal Bowel Sounds, Soft, Non-Tender Extremities: Normal Inspection, Normal Range of Motion, Non-Tender, No Pedal Edema Neurological: No New Focal Deficit Psy/Mental Status: Alert, Normal Affect, Normal Mood - Problem List Review Problem List Initiated/Reviewed/Updated: Yes - My Orders Last 24 Hours: My Active Orders 04/10/20 07:08 CANNABINOID (THC) CONFIRM, UR Stat 04/10/20 09:18 Benzocaine/Menthol [Dermoplast Pain Relief [place]] See Dose Instructions TOP ASDIRECTED PRN Ibuprofen [Motrin] 600 mg PO Q6H PRN witch Kristopher [Tucks] 1 pad TOP ASDIRECTED PRN Heat Therapy [OM.PC] PRN 04/10/20 09:18 Activity as Tolerated [RC] PER UNIT ROUTINE Vital Signs [RC] 03,09,15,21 Assess Lochia [WOMSER] Per Unit Routine Assess Uterine Involution [WOMSER] Per Unit Routine Breast Pump [WOMSER] Per Unit Routine Medication Administration Instruction [OM.PC] Routine Perineal Care [OM.PC] Per Unit Routine Sitz Bath [OM.PC] Per Unit Routine 04/10/20 16:30 Calcium Carbonate [Tums] 1,000 mg PO Q2HR PRN 04/10/20 21:26 Acetaminophen [TylenoL] 650 mg PO Q6H PRN 04/11/20 04:16 Consult to Case Management/Vegetable Loader Machine Operator [CONS] Routine 04/11/20 07:17 Abdomen Ltd [US] Routine 04/11/20 09:18 Heat Therapy [OM.PC] PRN - Assessment Assessment:: Term delivery. Complaining of abdominal pain. - Plan Plan:: Very anxious. Complaining of vomiting. Was resting comfortably in bed but upon awakening states nausea significant. Ultrasound today to evaluate gall bladder
[2020-04-11] MEDS ORDERED: Dextrose 5%-Lact Ringers w/KCl 1,000 ML IV SCH (08:00)
--- NOTE | 2020-04-11 08:36 | US ---
Limited abdominal ultrasound: Multiple real-time images of the upper right abdomen were obtained. Comparison: No prior abdominal imaging is available. 2 nonshadowing abnormalities are noted within the gallbladder lumen believed to represent sludge balls. Largest should ball measures approximately 7 mm. No shadowing gallstones, gallbladder wall thickening or biliary duct dilatation is seen. Liver shows no focal abnormality. Pancreas appears within normal limits. Right kidney shows mild hydronephrosis believed to represent hydronephrosis of . Right kidney is otherwise unremarkable. Main portal vein shows normal hepatopedal flow. Impression: 1. 2 sludge balls within the gallbladder. No shadowing gallstones, gallbladder wall thickening or biliary duct dilatation is seen. 2. Mild hydronephrosis of within the right kidney. 3. No additional abnormality is identified on right upper quadrant abdominal ultrasound exam. Diagnostic code #3 This report was dictated in MDT
[2020-04-11] MEDS: Ibuprofen 600 MG Tab PO PRN (08:38)
[2020-04-11 11:47] VITALS: BP 102/64; PULSE 66
[2020-04-11] MEDS: Calcium Carbonate 500 MG Tab.Chew PO PRN (14:55)
[2020-04-11] MEDS ORDERED: Docusate Sodium 100 MG Cap PO ONE (15:14)
== END 2020-04-11 19:00 | disposition home or self-care (01) | DRG 807 ==
LOC: JD.OB 09:12 → JD.OBCHECK 09:12 → JD.OB 22:15 → OBSVTOIN 04-10 08:27 → JD.OB 04-10 08:28
PROVIDERS: ADMIT Obstetrics & Gynecology; ATTEND Obstetrics & Gynecology
PROC: 10E0XZZ Delivery of Products of Conception, External Approach (ICD-10-PCS; principal; 2020-04-10)
PROC: 10907ZC Drainage of Amniotic Fluid, Therapeutic from Products of Conception, Via Natural or Artificial Opening (ICD-10-PCS; 2020-04-10)
PROC: 3E0R3BZ Introduction of Anesthetic Agent into Spinal Canal, Percutaneous Approach (ICD-10-PCS; 2020-04-10)
PROC: 00HU33Z Insertion of Infusion Device into Spinal Canal, Percutaneous Approach (ICD-10-PCS; 2020-04-10)
DX: O99.62 Diseases of the digestive system complicating childbirth (principal); Z37.0 Single live birth; K52.9 Noninfective gastroenteritis and colitis, unspecified; O99.52 Diseases of the respiratory system complicating childbirth; J45.909 Unspecified asthma, uncomplicated; Z20.828 Contact with and (suspected) exposure to other viral communicable diseases; Z3A.37 37 weeks gestation of pregnancy; Z87.891 Personal history of nicotine dependence
CPT/HCPCS: 01967; 36415; 51702; 59025; 59409; 76705; 76705-26; 80053; 80306; 81001; 85025; 86592; 96360; 96361; 96365; 96366; 96374; 96375; 96376; A9270-GY; G0480; J2300; J2405; J2590; J3010; J3480; J7030; J7120; U0002

== ENCOUNTER 2020-06-01 07:09 | Day surgery (SDC) | payer MEDICAID ==
[~2020-06-01 07:09] MED LIST: Dexamethasone 4 MG/ML 5 ML MDV ONE; Ketorolac 30 MG/ML SDV ONE; Lactated Ringers 1,000 ML IV SCH; Lactated Ringers 1,000 ML ONE; Lidocaine 1% 4 ML ONE; Lidocaine 1%/Sod Bicarbonate in NS 8.4% 1 ML Syringe IDERM PRN; Midazolam 1 MG/ML 2 ML SDV ONE; Ondansetron 4 MG/2 ML SDV ONE; Propofol 200 MG/20 ML SDV ONE; Rocuronium 50 MG/5 ML Vial ONE; Sodium Chloride 0.9% 10 ML Syringe FLUSH PRN; ceFAZolin 1 GM Vial ONE; fentaNYL 250 MCG/5 ML SDV ONE
[2020-06-01] MEDS ORDERED: Bupivacaine 0.5%/EPINEPHrine 1:200,000 50 ML MDV ONE (07:12)
--- NOTE | 2020-06-01 07:27 | PCM.PREANE ---
Preanesthetic Assessment - Anesthesia/Transfusion/Family Hx Anesthesia History: Prior Anesthesia Without Reaction Family History of Anesthesia Reaction: No Transfusion History: No Prior Transfusion(s) - Review of Systems General: Other (current smoker, vapes, + for marijuana use 04/09/20, s/p delivery04/10/20) Pulmonary: Other (asthma) Cardiovascular: No Symptoms Gastrointestinal: Other (GERD) Neurological: Headache Other: Reports: Depression, Anxiety - Physical Assessment NPO Status Date: 05/31/20 NPO Status Time: 23:00 Weight: 55.7 kg ASA Class: 2 Mental Status: Alert & Oriented x3 Airway Class: Mallampati = 2 Dentition: Reports: Normal Dentition Thyro-Mental Finger Breadths: 3 Mouth Opening Finger Breadths: 3 ROM/Head Extension: Full Lungs: Clear to Auscultation, Normal Respiratory Effort Cardiovascular: Regular Rate, Regular Rhythm, Bradycardia - Lab Values: Laboratory Last Values SARS-CoV-2 (PCR) Not detected (NOT DETECT) 05/07/20 09:00 - Allergies Allergies/Adverse Reactions: Allergies Allergy/AdvReac Type Severity Reaction Status Date / Time amoxicillin Allergy Hives Verified 05/31/20 14:11 - Blood Blood Available: No Product(s) Available: None - Anesthesia Plan Pre-Op Medication Ordered: None - Acknowledgements Anesthesia Type Planned: General Anesthesia Pt an Appropriate Candidate for the Planned Anesthesia: Yes Alternatives and Risks of Anesthesia Discussed w Pt/Guardian: Yes Pt/Guardian Understands and Agrees with Anesthesia Plan: Yes PreAnesthesia Questionnaire - Past Health History Medical/Surgical History: Denies Medical/Surgical History HEENT History: Reports: Impaired Vision Other HEENT History: wears glasses, sinus infection, dental abcess, blurred vision Cardiovascular History: Reports: None Respiratory History: Reports: Asthma Other Respiratory History: bronchiole asthma Gastrointestinal History: Reports: Gastritis, Other (See Below) Other Gastrointestinal History: GERD, viral gastroenteritis, gastritis, gastric biopsy Genitourinary History: Reports: UTI, Recurrent Other Genitourinary History: HPV, trichomonas, UTI, cystitis with hematuria, CINI, dysuria LINE WELDER History: Reports: , Other (See Below) Other OB/BYN History: abnormal umbilical cord, , vaginal itching and discharge, amenorrhea, menorrhagia, pelvic inflammatory disease, LGSIL Musculoskeletal History: Reports: Other (See Below) Other Musculoskeletal History: right axilla mass Neurological History: Reports: Migraines, Other (See Below) Other Neuro History: headaches, numbness and tingling Psychiatric History: Reports: Addiction, Anxiety, Depression, Other (See Below) Other Psychiatric History: boarderline personality disorder. history of depression Endocrine/Metabolic History: Reports: None Hematologic History: Reports: Anemia Immunologic History: Reports: None Other Oncologic History: stomach biopsy Dermatologic History: Reports: Other (See Below) Other Dermatologic History: acne, skin neoplasm - Infectious Disease History Infectious Disease History: Reports: None - Past Surgical History HEENT Surgical History: Reports: Oral Surgery Other HEENT Surgeries/Procedures: wisdom teeth removed Cardiovascular Surgical History: Reports: None Respiratory Surgical History: Reports: None GI Surgical History: Reports: EGD Female Surgical History: Endocrine Surgical History: Reports: None Neurological Surgical History: Reports: None Dermatological Surgical History: Reports: None - SUBSTANCE USE Tobacco Use Status *Q: Current Every Day Tobacco User Tobacco Use Within Last Twelve Months: Vaping Recreational Drug Use History: No - HOME MEDS Home Medications: Home Meds Multivitamin 1 tab PO DAILY 05/31/20 [History] Venlafaxine HCl [Venlafaxine ER] 150 mg PO DAILY 05/31/20 [History] norgestimate-ethinyl estradioL [[place] 28 Tablet] 1 tab PO DAILY 05/31/20 [History] - CURRENT (IN HOUSE) MEDS Current Meds: Current Medications Lactated Ringer's (Ringers, Lactated) 1,000 mls @ 125 mls/hr IV ASDIRECTED LOREN Stop: 06/01/20 23:00 Lidocaine/Sodium Bicarbonate (Buffered Lidocaine 1% In Ns 8.4%) 0.25 ml IDERM ONETIME PRN PRN Reason: Prior to IV Start Stop: 06/01/20 18:00 Sodium Chloride (Saline Flush) 10 ml FLUSH ASDIRECTED PRN PRN Reason: Keep Vein Open Stop: 06/01/20 18:00 Discontinued Medications Bupivacaine HCl/Epinephrine Bitart (Marcaine 0.5%/Epinephrine 1:200,000) Confirm Administered Dose 50 ml .ROUTE .STK-MED ONE Stop: 06/01/20 07:13 Cefazolin Sodium (Ancef) Confirm Administered Dose 2 gm .ROUTE .STK-MED ONE Stop: 06/01/20 07:04 Dexamethasone (Dexamethasone) Confirm Administered Dose 20 mg .ROUTE .STK-MED ONE Stop: 06/01/20 07:04 Fentanyl (Sublimaze) Confirm Administered Dose 250 mcg .ROUTE .STK-MED ONE Stop: 06/01/20 07:04 Lactated Ringer's (Ringers, Lactated) 1,000 mls @ 125 mls/hr IV ASDIRECTED LOREN Stop: 04/22/20 23:00 Lactated Ringer's (Ringers, Lactated) 1,000 mls @ 125 mls/hr IV ASDIRECTED LOREN Stop: 05/11/20 23:00 Lactated Ringer's (Ringers, Lactated) Confirm Administered Dose 1,000 mls @ as directed .ROUTE .STK-MED ONE Stop: 06/01/20 07:04 Lidocaine HCl (Xylocaine-Mpf 1%) Confirm Administered Dose 4 mls @ as directed .ROUTE .STK-MED ONE Stop: 06/01/20 07:05 Ketorolac Tromethamine (Toradol) Confirm Administered Dose 30 mg .ROUTE .STK-MED ONE Stop: 06/01/20 07:05 Lidocaine/Sodium Bicarbonate (Buffered Lidocaine 1% In Ns 8.4%) 0.25 ml IDERM ONETIME PRN PRN Reason: Prior to IV Start Stop: 04/22/20 18:00 Lidocaine/Sodium Bicarbonate (Buffered Lidocaine 1% In Ns 8.4%) 0.25 ml IDERM ONETIME PRN PRN Reason: Prior to IV Start Stop: 05/11/20 18:00 Midazolam HCl (Versed 1 Mg/Ml) Confirm Administered Dose 2 mg .ROUTE .STK-MED ONE Stop: 06/01/20 07:04 Ondansetron HCl (Zofran) Confirm Administered Dose 4 mg .ROUTE .STK-MED ONE Stop: 06/01/20 07:04 Propofol (Diprivan 20 Ml) Confirm Administered Dose 200 mg .ROUTE .STK-MED ONE Stop: 06/01/20 07:04 Rocuronium [place] (Zemuron) Confirm Administered Dose 50 mg .ROUTE .STK-MED ONE Stop: 06/01/20 07:04 Sodium Chloride (Saline Flush) 10 ml FLUSH ASDIRECTED PRN PRN Reason: Keep Vein Open Stop: 04/22/20 18:00 Sodium Chloride (Saline Flush) 10 ml FLUSH ASDIRECTED PRN PRN Reason: Keep Vein Open Stop: 05/11/20 18:00
[2020-06-01] MEDS ORDERED: Clindamycin Phosphate in D5W 900 MG in Premix Bag 1 BAG IV STA ×2 (08:04)
[2020-06-01] MEDS ORDERED: Ketamine 500 mg/10 ML MDV ONE (08:24)
--- NOTE | 2020-06-01 08:51 | PCM.PRNOTE ---
- Free Text/Narrative Note: Date: 06/01/2020 Operation: laparoscopic cholecystectomy Indication: symptomatic cholelithiasis Surgeon: Eric Ceron MD Findings: mild inflammatory changes of gallbladder including omental adhesions and thickened peritoneum. Critical view obtained. Detailed Report: The patient was taken to the OR and placed supine. Time out was performed and general endotracheal anesthesia initiated. The abdomen was prepped and draped in sterile fashion. A Veress needle was placed at Schumacher's point and pneumoperitoneum established. Air was aspirated at the umbilicus and a 5 mm bladed trocar was placed just superior to the umbilicus. A 5 mm 30 degree laparoscope was inserted. Additional 5 mm ports were placed under laparoscopic vision at the left flank and left upper quadrant. The gallbladder fundus was grasped and retracted cephalad. A 12 mm port was then placed at the subxiphoid region. Omental attachments to the gallbladder were taken down using hook monopolar. The infundibulum was retracted laterally, and the cystic duct and artery were skeletonized. There was minimal inflammatory change and dissection was straightforward. A critical view of safety was established. Hemolock clips were placed on the cystic duct and artery, with the cystic duct stump double- clipped prior to transection of these structures with laparoscopic shiela. The gallbladder was then taken off the liver using monopolar, and the specimen placed in an endocatch device and removed through the subxiphoid port. The dissection field was hemostatic. The 12 mm port was removed and the incision was closed at the level of fascia with 0 vicryl using the PMI laparoscopic suture passer. Other ports were removed under laparoscopic vision. Pneumoperitoneum was released and incisions were closed at the skin with vicryl and dressed with dermabond. The patient tolerated the operation well.
[2020-06-01] MEDS ORDERED: fentaNYL 100 MCG/2 ML SDV IVPUSH PRN (09:05)
[2020-06-01] MEDS ORDERED: Ondansetron 4 MG/2 ML SDV IVPUSH PRN (09:05)
--- NOTE | 2020-06-01 09:05 | PCM.POSTAN ---
POST ANESTHESIA ASSESSMENT - MENTAL STATUS Mental Status: Alert, Oriented - VITAL SIGNS Vital Signs: Last Vital Signs Temp 36.7 C 06/01/20 09:00 Pulse 89 06/01/20 09:00 Resp 16 06/01/20 09:00 BP 115/71 06/01/20 09:00 Pulse Ox 100 06/01/20 09:00 - RESPIRATORY Respiratory Status: Respiratory Rate WNL, Airway Patent, O2 Saturation Stable, Supplemental Oxygen - CARDIOVASCULAR CV Status: Pulse Rate WNL, Blood Pressure Stable - GASTROINTESTINAL GI Status: No Symptoms - PAIN Pain Score: 0 - POST OP HYDRATION Hydration Status: Adequate & Stable
--- NOTE | 2020-06-01 10:25 | PCM48HPAN ---
Post Anesthesia Note - EVALUATION WITHIN 48HRS OF ANESTHETIC Vital Signs in Normal Range: Yes Patient Participated in Evaluation: Yes Respiratory Function Stable: Yes Airway Patent: Yes Cardiovascular Function Stable: Yes Hydration Status Stable: Yes Pain Control Satisfactory: Yes Nausea and Vomiting Control Satisfactory: Yes Mental Status Recovered: Yes Vital Signs: Last Vital Signs Temp 36.8 C 06/01/20 10:00 Pulse 77 06/01/20 10:05 Resp 15 06/01/20 10:05 BP 100/58 L 06/01/20 10:05 Pulse Ox 95 06/01/20 10:05
[2020-06-01 12:15] VITALS: BP 105/83; PULSE 71
== END 2020-06-01 11:10 | disposition home or self-care (01) ==
LOC: JD.SDS 07:09
PROVIDERS: ATTEND Surgery
DX: K81.1 Chronic cholecystitis (principal); F41.9 Anxiety disorder, unspecified; F32.9 Major depressive disorder, single episode, unspecified; J45.909 Unspecified asthma, uncomplicated; F17.200 Nicotine dependence, unspecified, uncomplicated; K21.9 Gastro-esophageal reflux disease without esophagitis; Z01.812 Encounter for preprocedural laboratory examination; Z98.890 Other specified postprocedural states; Z88.1 Allergy status to other antibiotic agents; Z79.899 Other long term (current) drug therapy; Z20.828 Contact with and (suspected) exposure to other viral communicable diseases
CPT/HCPCS: 36415; 47562; 80048; 81025; 87635; J1100; J1885; J2001; J2250; J2405; J2704; J2710; J3010; J3490; J7120; 00790; J0690; U0002

== ENCOUNTER 2020-06-02 14:50 | Emergency (ER) | payer MEDICAID ==
[2020-06-02] MEDS ORDERED: HYDROmorphone 0.5 MG/0.5 ML Syringe IVPUSH ONE ×2 (15:09→17:42)
--- NOTE | 2020-06-02 15:50 | EDM.PDOC ---
ED HPI GENERAL MEDICAL PROBLEM - General Chief Complaint: General Stated Complaint: [facility] Time Seen by Provider: 06/02/20 15:00 Source of Information: Reports: Patient, RN Notes Reviewed History Limitations: Reports: No Limitations - History of Present Illness INITIAL COMMENTS - FREE TEXT/NARRATIVE: Patient is a 25-year-old female presenting to the emergency department with acute onset of right-sided chest, axillary, and shoulder pain. She states that the pain was present upon waking from a nap. Pain is worse with movement or deep breathing. She did just have her gallbladder removed laparoscopically yesterday with Dr. Ceron. She has been taking Percocets about every 6 hours for pain. Last dose was 20 minutes prior to coming to the ER. She denies any nausea or vomiting. Treatments CRAY FISHING HAND: Reports: Other (see below) Other Treatments CRAY FISHING HAND: oxycodone Right Shoulder Pain Score (Numeric/FACES): 10 - Related Data Allergies Allergy/AdvReac Type Severity Reaction Status Date / Time amoxicillin Allergy Hives Verified 06/01/20 08:17 Home Meds: Home Meds Multivitamin 1 tab PO DAILY 05/31/20 [History] Venlafaxine HCl [Venlafaxine ER] 150 mg PO DAILY 05/31/20 [History] norgestimate-ethinyl estradioL [Foster-Linyah 28 Tablet] 1 tab PO DAILY 05/31/20 [History] oxyCODONE 5 mg PO Q4H PRN #20 tab 06/01/20 [Rx] Past Medical History - Past Health History Medical/Surgical History: Denies Medical/Surgical History HEENT History: Reports: Impaired Vision Other HEENT History: wears glasses, sinus infection, dental abcess, blurred vision Cardiovascular History: Reports: None Respiratory History: Reports: Asthma Other Respiratory History: bronchiole asthma Gastrointestinal History: Reports: Gastritis, Other (See Below) Other Gastrointestinal History: GERD, viral gastroenteritis, gastritis, gastric biopsy Genitourinary History: Reports: UTI, Recurrent Other Genitourinary History: HPV, trichomonas, UTI, cystitis with hematuria, CINI, dysuria VALIDATION TECHNICIAN History: Reports: , Other (See Below) Other VALIDATION TECHNICIAN History: abnormal umbilical cord, , vaginal itching and discharge, amenorrhea, menorrhagia, pelvic inflammatory disease, LGSIL Musculoskeletal History: Reports: Other (See Below) Other Musculoskeletal History: right axilla mass Neurological History: Reports: Migraines, Other (See Below) Other Neuro History: headaches, numbness and tingling Psychiatric History: Reports: Addiction, Anxiety, Depression, Other (See Below) Other Psychiatric History: boarderline personality disorder. history of depression Endocrine/Metabolic History: Reports: None Hematologic History: Reports: Anemia Immunologic History: Reports: None Other Oncologic History: stomach biopsy Dermatologic History: Reports: Other (See Below) Other Dermatologic History: acne, skin neoplasm - Infectious Disease History Infectious Disease History: Reports: None - Past Surgical History HEENT Surgical History: Reports: Oral Surgery Other HEENT Surgeries/Procedures: wisdom teeth removed Cardiovascular Surgical History: Reports: None Respiratory Surgical History: Reports: None GI Surgical History: Reports: EGD Endocrine Surgical History: Reports: None Neurological Surgical History: Reports: None Dermatological Surgical History: Reports: None Social & Family History - Family History Family Medical History: No Pertinent Family History - Tobacco Use Tobacco Use Status *Q: Current Every Day Tobacco User Years of Tobacco use: 3 Packs/Tins Daily: 0.1 - Caffeine Use Caffeine Use: Reports: Coffee, Soda, Tea - Recreational Drug Use Recreational Drug Use: Yes Recreational Drug Type: Reports: Marijuana/Hashish Other Recreational Drug Type: used when having gallbladder attacks but none sinc - Living Situation & Occupation Living situation: Reports: Single, with Family Occupation: Unemployed ED ROS GENERAL - Review of Systems Review Of Systems: See Below Constitutional: Reports: No Symptoms HEENT: Reports: No Symptoms Respiratory: Reports: No Symptoms Cardiovascular: Reports: Chest Pain (Right chest and shoulder) Endocrine: Reports: No Symptoms GI/Abdominal: Reports: Other (Generalized postop discomfort) : Reports: No Symptoms Musculoskeletal: Reports: No Symptoms Skin: Reports: No Symptoms Neurological: Reports: No Symptoms Psychiatric: Reports: No Symptoms Hematologic/Lymphatic: Reports: No Symptoms Immunologic: Reports: No Symptoms ED EXAM, GENERAL - Physical Exam Exam: See Below General Appearance: Alert, WD/WN, No Apparent Distress Respiratory/Chest: No Respiratory Distress, Lungs Clear, Normal Breath Sounds, No Accessory Muscle Use, Chest Non-Tender Cardiovascular: Normal Peripheral Pulses, Regular Rate, Rhythm, No Edema, No Gallop, No JVD, No Murmur, No Rub GI/Abdominal: Normal Bowel Sounds, Soft, Other (3 laparoscopic surgical sites. Glue in place. No redness, swelling, or drainage.) Neurological: Alert, Oriented, CN II-XII Intact, Normal Cognition, Normal Gait, Normal Reflexes, No Motor/Sensory Deficits Psychiatric: Normal Affect, Normal Mood Skin Exam: Warm, Dry, Intact, Normal Color, No Rash Course - Vital Signs Last Recorded V/S: Last Vital Signs Temp 97.0 F 06/02/20 14:59 Pulse 75 06/02/20 14:59 Resp 20 06/02/20 14:59 BP 127/109 H 06/02/20 14:59 Pulse Ox 98 06/02/20 14:59 - Orders/Labs/Meds Orders: Active Orders 24 hr Category Date Time Status Chest PE [Ang Chest] [CT] Stat Exams 06/02/20 16:15 Taken CORONAVIRUS COVID-19 PCR PHL Routine Lab 06/02/20 17:31 Ordered Sodium Chloride 0.9% [Normal Saline] 45 ml Med 06/02/20 16:30 Active IV ASDIRECTED Sodium Chloride 0.9% [Saline Flush] Med 06/02/20 16:27 Active 10 ml FLUSH ONETIME PRN Medication Orders Sodium Chloride (Normal Saline) 45 mls @ 40 mls/hr IV ASDIRECTED LOREN Last Admin: 06/02/20 16:50 Dose: 40 mls/hr Documented by: NICO Sodium Chloride (Saline Flush) 10 ml FLUSH ONETIME PRN PRN Reason: Keep Vein Open Last Admin: 06/02/20 16:50 Dose: 10 ml Documented by: NICO Labs: Laboratory Tests 06/02/20 06/02/20 06/02/20 Range/Units 15:27 15:27 15:27 WBC 4.90 (3.98-10.04) K/mm3 RBC 3.33 L (3.98-5.22) M/mm3 Hgb 10.0 L (11.2-15.7) gm/dl Hct 32.7 L (34.1-44.9) % MCV 98.2 H (79.4-94.8) fl MCH 30.0 (25.6-32.2) pg MCHC 30.6 L (32.2-35.5) g/dl RDW Std Deviation 49.4 H (36.4-46.3) fL Plt Count 155 L (182-369) K/mm3 MPV 11.3 (9.4-12.3) fl Neut % (Auto) 56.9 (34.0-71.1) % Lymph % (Auto) 31.4 (19.3-51.7) % Foster % (Auto) 8.2 (4.7-12.5) % Eos % (Auto) 3.1 (0.7-5.8) Baso % (Auto) 0.2 (0.1-1.2) % Neut # (Auto) 2.79 (1.56-6.13) K/mm3 Lymph # (Auto) 1.54 (1.18-3.74) K/mm3 Foster # (Auto) 0.40 H (0.24-0.36) K/mm3 Eos # (Auto) 0.15 (0.04-0.36) K/mm3 Baso # (Auto) 0.01 (0.01-0.08) K/mm3 D-Dimer, Quantitative 0.88 H (0.19-0.50) mg/L Sodium 138 (136-145) mEq/L Potassium 4.1 (3.5-5.1) mEq/L Chloride 106 (98-107) mEq/L Carbon Dioxide 23 (21-32) mEq/L Anion Gap 13.1 (5-15) BUN 16 (7-18) mg/dL Creatinine 0.9 (0.55-1.02) mg/dL Est Cr Clr Drug Dosing 79.73 mL/min Estimated GFR (MDRD) > 60 (>60) mL/min BUN/Creatinine Ratio 17.8 (14-18) Glucose 90 (74-106) mg/dL Calcium 8.3 L (8.5-10.1) mg/dL Total Bilirubin 0.2 (0.2-1.0) mg/dL AST 28 (15-37) U/L ALT 31 (14-59) U/L Alkaline Phosphatase 67 (46-116) U/L Total Protein 6.6 (6.4-8.2) g/dl Albumin 2.9 L (3.4-5.0) g/dl Globulin 3.7 gm/dL Albumin/Globulin Ratio 0.8 L (1-2) Meds: Medications Generic Name Dose Route Start Last Admin Trade Name Freq PRN Reason Stop Dose Admin Sodium Chloride 45 mls @ 40 mls/hr 06/02/20 16:30 06/02/20 16:50 Normal Saline IV 40 mls/hr ASDIRECTED LOREN Administration Sodium Chloride 10 ml 06/02/20 16:27 06/02/20 16:50 Saline Flush FLUSH 10 ml ONETIME PRN Administration Keep Vein Open Discontinued Medications Generic Name Dose Route Start Last Admin Trade Name Kemar PRN Reason Stop Dose Admin Hydromorphone HCl 0.5 mg 06/02/20 15:09 06/02/20 15:19 Dilaudid IVPUSH 06/02/20 15:10 0.5 mg ONETIME ONE Administration Iopamidol 100 ml 06/02/20 16:27 06/02/20 16:50 Isovue-370 (76%) IVPUSH 06/02/20 16:28 100 ml ONETIME ONE Administration - Re-Assessments/Exams Free Text/Narrative Re-Assessment/Exam: Patient is a 25-year-old female presenting to the emergency department with complaints of pain in her right axilla, chest, and shoulder. She had a lap thi completed yesterday. She woke with the pain from a nap today. She had taken a Percocet approximate 20 minutes prior to the ambulance's arrival. On exam, she has significant pain in her right upper chest and axillary area. We will give her Dilaudid 0.5 mg IV. Will complete blood work including CBC, CMP, D-dimer to rule out PE, however there is a chance that this could be elevated due to her recent surgery. 06/02/20 16:22 D-dimer came back elevated at 0.88. Discussed results with patient and the differential at this could be elevated due to surgery as opposed to possibility of a blood clot in her lungs. She would like to proceed with a CT angiogram of the chest to rule out PE. This has been ordered. Her pain has improved otherwise. 06/02/20 17:34 CT angiogram showed 1. Multifocal bilateral groundglass opacities suggesting a multifocal pneumonia. Correlate to exclude underlying atypical infections. 2. 2.5 cm rounded masslike opacity along the anterior right middle lobe. Possibly inflammatory/infectious such as a round pneumonia especially given the young age of the patient, however underlying pulmonary mass could not be excluded. Recommend short-term follow-up chest CT in 1 week following treatment to ensure improvement/resolution. If this were to persist or remain unchanged, further evaluation possibly with a pet imaging would be helpful. 3. No acute pulmonary embolus. 4. Tiny amount of free intraperitoneal gas identified in the upper abdomen possibly related to the reported recent gallbladder surgery. Patient states that she was Covid tested about 4 to 5 days before surgery. She denies any cough or fever. Oxygen saturation is 98% on RA. She does not have an elevated white count to suggest a bacterial pneumonia. We will send a Covid test today, as her multifocal bilateral groundglass opacities is suspicious for an underlying viral pneumonia. I did discuss that she should follow-up with her primary care provider to have a repeat CT scan completed in 2 weeks. She verbalized that her PCP is Margarita Bahena NP. We will discharge her home. Discharge instructions as documented. Departure - Departure Time of Disposition: 17:37 Disposition: Home, Self-Care 01 Condition: Good Clinical Impression: Non-cardiac chest pain - Discharge Information *PRESCRIPTION DRUG MONITORING PROGRAM REVIEWED*: No *COPY OF PRESCRIPTION DRUG MONITORING REPORT IN PATIENT SALMA: No Referrals: Eric Ceron MD [Primary Care Provider] - Sharona Bahena NP [Ordering Only Provider] - Forms: ED Department Discharge Additional Instructions: You were seen in the emergency department today for pain in your right chest, armpit, shoulder after having gallbladder surgery yesterday. Work-up included blood work as well as a CT angiogram of your chest. Results your work-up were negative for any blood clots in your lungs, however you are found to have what appears to be a viral pneumonia in both of your lungs. A Covid test has been completed today as this is atypical finding with Covid. Recommend that you isolate at home until test results are available. There was also a small masslike opacity in your right lung which is likely inflammation, however follow-up is needed with a repeat CT scan of your chest in 2 weeks. As we discussed, the pain you are having is likely due to irritation of the phrenic nerve due to air beneath your diaphragm. This is fairly common after having a laparoscopic surgery. Continue using your pain medications that were previously prescribed by your surgeon. Applying heat to the area and walking around frequently can help to alleviate the pain. Recommend that you follow-up with your primary care provider, Margarita Bahena, next week to discuss this finding and have a CT scan scheduled for 2 weeks from today. If you should experience any new or worsening symptoms of concern, please not hesitate to return to the emergency department. Sepsis Event Note (ED) - Evaluation Sepsis Screening Result: No Definite Risk - Focused Exam Vital Signs: Vital Signs Temp Pulse Resp BP Pulse Ox 06/02/20 14:59 97.0 F 75 20 127/109 H 98 - My Orders Last 24 Hours: My Active Orders 06/02/20 16:15 Chest PE [Ang Chest] [CT] Stat 06/02/20 16:27 Sodium Chloride 0.9% [Saline Flush] 10 ml FLUSH ONETIME PRN 06/02/20 16:30 Sodium Chloride 0.9% [Normal Saline] 45 ml IV ASDIRECTED 06/02/20 17:31 CORONAVIRUS COVID-19 PCR PHL Routine - Assessment/Plan Last 24 Hours: My Active Orders 06/02/20 16:15 Chest PE [Ang Chest] [CT] Stat 06/02/20 16:27 Sodium Chloride 0.9% [Saline Flush] 10 ml FLUSH ONETIME PRN 06/02/20 16:30 Sodium Chloride 0.9% [Normal Saline] 45 ml IV ASDIRECTED 06/02/20 17:31 CORONAVIRUS COVID-19 PCR PHL Routine
[2020-06-02] MEDS ORDERED: Sodium Chloride 0.9% 10 ML Syringe FLUSH PRN (16:27)
[2020-06-02] MEDS ORDERED: Iopamidol 755 Mg/ML 100 ML Bottle IVPUSH ONE (16:27)
[2020-06-02] MEDS ORDERED: Sodium Chloride 0.9% 45 ML IV SCH (16:30)
[2020-06-02 18:26] VITALS: BP 112/72; PULSE 80
--- NOTE | 2020-06-03 08:39 | CT ---
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 Initial Report created on 06/02/2020 6:13 PM Central Time ([place] & [place]): PROCEDURE INFORMATION: Exam: CT Angiography Chest With Contrast Exam date and time: 06/02/2020 4:29 PM Age: 25 years old Clinical indication: Other: Elevated d-dimer, chest px on right side; Patient HX: Gallbladder surgery yesterday TECHNIQUE: Imaging protocol: Computed tomographic angiography of the chest with intravenous contrast. 3D rendering (Not supervised by radiologist): MIP and/or 3D reconstructed images were created by the technologist. Contrast material: ISOVUE 370; Contrast volume: 100 ml; Contrast route: INTRAVENOUS (IV); COMPARISON: DX Chest 2V 05/09/2016 8:25 PM FINDINGS: Pulmonary arteries: Normal. No pulmonary emboli. Aorta: Unremarkable. No aortic aneurysm. No aortic dissection. Lungs: There are multiple scattered predominantly rounded ground-glass opacities throughout both lungs. There is a rounded 2.5 cm masslike opacity along the anterior right middle lobe. Pleural space: Unremarkable. No pneumothorax. No pleural effusion. Heart: Unremarkable. No cardiomegaly. No pericardial effusion. Lymph nodes: Unremarkable. No enlarged lymph nodes. Intraperitoneal space: Tiny amount of free intraperitoneal gas within the abdomen may relate to the reported recent gallbladder surgery. Bones/joints: Unremarkable. No acute fracture. Soft tissues: Unremarkable. IMPRESSION: 1. Multifocal bilateral ground-glass opacities suggesting a multifocal pneumonia. Correlate to exclude underlying atypical infections. 2. 2.5 cm rounded masslike opacity along the anterior right middle lobe. Possibly inflammatory/infectious such as round pneumonia especially given the young age of patient, however underlying pulmonary mass not excluded. Recommend short-term follow-up chest CT in 2 weeks following treatment to assure improvement/resolution. If this were to persist or remain unchanged, further evaluation possibly with PET imaging would be helpful. 3. No acute pulmonary embolus. 4. Tiny amount of free intraperitoneal gas identified in the upper abdomen possibly related to the reported recent gallbladder surgery. Thank you for allowing us to participate in the care of your patient. Dictated and Authenticated by: Andrei Carl MD 06/02/2020 6:13 PM Central Time ([place] & [place]) [place]
== END 2020-06-02 18:05 | disposition home or self-care (01) ==
LOC: JD.ED 14:50 → SUPCPDRO 14:50 → JD.ED 18:05
DX: R07.89 Other chest pain (principal); J45.909 Unspecified asthma, uncomplicated; F41.9 Anxiety disorder, unspecified; F32.9 Major depressive disorder, single episode, unspecified; F17.210 Nicotine dependence, cigarettes, uncomplicated; Z88.1 Allergy status to other antibiotic agents; Z79.899 Other long term (current) drug therapy; Z20.828 Contact with and (suspected) exposure to other viral communicable diseases
CPT/HCPCS: 36415; 71275; 80053; 85025; 85379; 87635; 96374; 96376; 99285; J1170; Q9967; 99284; U0002

== ENCOUNTER 2020-08-24 21:21 | Emergency (ER) | payer MEDICAID ==
--- NOTE | 2020-08-24 22:14 | EDM.PDOCBH ---
ED HPI GENERAL MEDICAL PROBLEM - General Chief Complaint: Drug or Alcohol Abuse Stated Complaint: [facility] Time Seen by Provider: 08/24/20 21:29 Source of Information: Reports: Patient, RN Notes Reviewed History Limitations: Reports: Intoxication - History of Present Illness INITIAL COMMENTS - FREE TEXT/NARRATIVE: Ms. Brown is a pleasant 25-year-old woman with a past medical history significant for for anxiety and depression, prescribed alprazolam 1 mg, 1 tablet BID and oxycodone for dental pain, both per her PCP, who is now brought to the ED by EMS after ingesting an unknown quantity of alcohol and taking an unknown number of tablets of her alprazolam. The time of ingestion is unknown, and it is not known at this time how her actions came to light. When asked why she did it, she stated "Honestly, I just lost my shit", and indicated that she did not know what might happen as a result of her actions. Review of the [place] [employer] TECHNICIAN indicates that the patient filled her most recent prescription for alprazolam 1 mg # 60 on 08/08/2020. Presuming she took 1 tablet twice a day starting that evening, and including this morning, that would have left her 28 tablets this evening. The patient states that she has attempted suicide in the past, but I was unable to determine how many times. She stated that it was when she was much younger, but could not give me an age, and I could not get any other details of the event from her. The patient has a history of methamphetamine abuse. She acknowledges that she smoked methamphetamine about 3 days ago, stating that she typically smokes it perhaps once a month. Here in the ED, the patient is found to be slightly tachypneic at 22 rpm, otherwise, she is hemodynamically stable, afebrile, saturating 95% on room air. Other than tonight's events, the patient denies having a recent fever, chills, sore throat, ear pain, nasal or sinus congestion, cough, dyspnea, chest pain, palpitations, nausea, vomiting, constipation, diarrhea, abdominal pain, urinary symptoms, recent weight gain or weight loss, recent bloody bowel movements or black bowel movements, recent joint aches, headaches, or rashes. The patient's PCP is Sharona Bahena NP. Her Surgeon is Dr. Eric Ceron. She has not received an influenza vaccine this season, but agreed to get one here in the ED. - Related Data Allergies Allergy/AdvReac Type Severity Reaction Status Date / Time amoxicillin Allergy Hives Verified 08/24/20 21:40 Home Meds: Home Meds Multivitamin 1 tab PO DAILY 05/31/20 [History] Venlafaxine HCl [Venlafaxine ER] 150 mg PO DAILY 05/31/20 [History] norgestimate-ethinyl estradioL [[place] 28 Tablet] 1 tab PO DAILY 05/31/20 [History] oxyCODONE 5 mg PO Q4H PRN #20 tab 06/01/20 [Rx] Past Medical History HEENT History: Reports: Impaired Vision (wears glasses) Gastrointestinal History: Reports: Gastritis (untreated) Psychiatric History: Reports: Addiction (methamphetamine), Anxiety, Depression - Past Surgical History HEENT Surgical History: Reports: Oral Surgery (dental extractions) GI Surgical History: Reports: Cholecystectomy (06/01/2020), EGD (x 2) Female Surgical History: Reports: Other (See Below) (Cervical colposcopy) Social & Family History - Tobacco Use Tobacco Use Status *Q: Current Some Day Tobacco User Tobacco Use Within Last Twelve Months: Vaping (nicotine) Years of Tobacco use: 5 Packs/Tins Daily: 0.1 - Caffeine Use Caffeine Use: Reports: None - Alcohol Use Alcohol Use History: Yes Alcohol Use Frequency: Socially - Recreational Drug Use Recreational Drug Use: Yes Drug Use in Last 12 Months: Yes Recreational Drug Type: Reports: Marijuana/Hashish (last smoked Jul 2020), Methamphetamine (last snorted, smoked 08/21/2020), Xanax (intentional OD 08/24/2020) - Living Situation & Occupation Living situation: Reports: Single, Other (Mother of her child's father) Occupation: Unemployed ED ROS GENERAL - Review of Systems Review Of Systems: Comprehensive ROS is negative, except as noted in HPI. ED EXAM, BEHAVIORAL HEALTH - Physical Exam Exam: See Below Exam Limited By: Intoxication General Appearance: No Apparent Distress, Lethargic (but able to answer question s without prompting), Thin Eye Exam: Bilateral Eye: EOMI (eyes crossed), Normal Inspection Ears: Normal External Exam, Hearing Grossly Normal Nose: Normal Inspection Throat/Mouth: Normal Inspection, Normal Lips, Normal Voice, No Airway Compromise Head: Atraumatic, Normocephalic Neck: Normal Inspection, Full Range of Motion Respiratory/Chest: No Respiratory Distress, Lungs Clear, Normal Breath Sounds, No Accessory Muscle Use Cardiovascular: Normal Peripheral Pulses, Regular Rate, Rhythm, No Edema, No Gallop, No JVD, No Murmur, No Rub GI/Abdominal: Normal Bowel Sounds, Soft, Non-Tender, No Organomegaly, No Distention, No Abnormal Bruit, No Mass Back Exam: Normal Inspection, Full Range of Motion, NT Extremities: Normal Inspection, Normal Range of Motion, No Pedal Edema, Normal Capillary Refill Neurological: No Motor/Sensory Deficits, Oriented x 3, Other (Heavily slurred speech, exaggerated movements, consistent with alcohol intoxication) Skin Exam: Warm, Dry, Intact, Normal color, No rash #1 Interpretation EKG Date: 08/24/20 Time: 21:30 Rhythm: NSR Rate (Beats/Min): 97 [place]: Normal P-Wave: Present QRS: Normal ST-T: Normal QT: Prolonged (QTc 493 ms) Comparison: NA - No Prior EKG COURSE, BEHAVIORAL HEALTH COMP - Course Vital Signs: Last Vital Signs Temp 36.5 C 08/25/20 08:05 Pulse 90 08/25/20 08:05 Resp 18 08/25/20 08:05 BP 100/73 08/25/20 08:05 Pulse Ox 100 08/25/20 08:05 Orders, Labs, Meds: Laboratory Tests 08/24/20 08/24/20 08/24/20 Range/Units 22:16 22:16 22:27 WBC 5.37 (3.98-10.04) K/mm3 RBC 4.17 (3.98-5.22) M/mm3 Hgb 13.0 D (11.2-15.7) gm/dl Hct 40.3 (34.1-44.9) % MCV 96.6 H (79.4-94.8) fl MCH 31.2 (25.6-32.2) pg MCHC 32.3 (32.2-35.5) g/dl RDW Std Deviation 46.4 H (36.4-46.3) fL Plt Count 174 L (182-369) K/mm3 MPV 12.1 (9.4-12.3) fl Neutrophils % (Manual) 40 (40-60) % Band Neutrophils % 0 (0-10) % Lymphocytes % (Manual) 51 H (20-40) % Atypical Lymphs % 0 % Monocytes % (Manual) 6 (2-10) % Eosinophils % (Manual) 3 (0.7-5.8) % Basophils % (Manual) 0 L (0.1-1.2) Platelet Estimate Adequate RBC Morph Comment Normal Sodium (136-145) mEq/L Potassium (3.5-5.1) mEq/L Chloride (98-107) mEq/L Carbon Dioxide (21-32) mEq/L Anion Gap (5-15) BUN (7-18) mg/dL Creatinine (0.55-1.02) mg/dL Est Cr Clr Drug Dosing mL/min Estimated GFR (MDRD) (>60) mL/min BUN/Creatinine Ratio (14-18) Glucose (74-106) mg/dL Calcium (8.5-10.1) mg/dL Magnesium (1.8-2.4) mg/dl Total Bilirubin (0.2-1.0) mg/dL AST (15-37) U/L ALT (14-59) U/L Alkaline Phosphatase (46-116) U/L Total Protein (6.4-8.2) g/dl Albumin (3.4-5.0) g/dl Globulin gm/dL Albumin/Globulin Ratio (1-2) TSH 3rd Generation (0.358-3.74) uIU/mL Urine HCG, Qual Negative (NEGATIVE) Salicylates (2.8-20) mg/dL Urine Opiates Screen Negative (CDTQEB=635) Ur Buprenorphine Scrn Negative (CUTOFF=10) Ur Oxycodone Screen Negative (CTM4DK=721) Urine Methadone Screen Negative (KIJVYD=003) Ur Propoxyphene Screen Negative (QVKOZF=949) Acetaminophen (10-30) ug/mL Ur Barbiturates Screen Negative (QBMGCN=846) Ur Tricyclics Screen Negative (LWHDHI=854) Ur Phencyclidine Scrn Negative (CUTOFF=25) Ur Amphetamine Screen Negative (MKYYHE=657) U Methamphetamines Scrn Negative (BLEACB=391) U Benzodiazepines Scrn Presumptive positive H (NGECIS=266) U Cocaine Metab Screen Negative (HYYKUR=274) U Marijuana (THC) Screen Negative (CUTOFF=50) Ethyl Alcohol (0.00) gm% SARS-CoV-2 RNA (LEESA) (NEGATIVE) 08/24/20 08/24/20 08/24/20 Range/Units 22:27 22:27 22:30 WBC (3.98-10.04) K/mm3 RBC (3.98-5.22) M/mm3 Hgb (11.2-15.7) gm/dl Hct (34.1-44.9) % MCV (79.4-94.8) fl MCH (25.6-32.2) pg MCHC (32.2-35.5) g/dl RDW Std Deviation (36.4-46.3) fL Plt Count (182-369) K/mm3 MPV (9.4-12.3) fl Neutrophils % (Manual) (40-60) % Band Neutrophils % (0-10) % Lymphocytes % (Manual) (20-40) % Atypical Lymphs % % Monocytes % (Manual) (2-10) % Eosinophils % (Manual) (0.7-5.8) % Basophils % (Manual) (0.1-1.2) Platelet Estimate RBC Morph Comment Sodium 145 (136-145) mEq/L Potassium 3.4 L (3.5-5.1) mEq/L Chloride 105 (98-107) mEq/L Carbon Dioxide 29 (21-32) mEq/L Anion Gap 14.4 (5-15) BUN 18 (7-18) mg/dL Creatinine 0.8 (0.55-1.02) mg/dL Est Cr Clr Drug Dosing 89.29 mL/min Estimated GFR (MDRD) > 60 (>60) mL/min BUN/Creatinine Ratio 22.5 H (14-18) Glucose 90 (74-106) mg/dL Calcium 8.9 (8.5-10.1) mg/dL Magnesium 2.1 (1.8-2.4) mg/dl Total Bilirubin 0.2 (0.2-1.0) mg/dL AST 15 (15-37) U/L ALT 25 (14-59) U/L Alkaline Phosphatase 85 (46-116) U/L Total Protein 7.0 (6.4-8.2) g/dl Albumin 3.7 (3.4-5.0) g/dl Globulin 3.3 gm/dL Albumin/Globulin Ratio 1.1 (1-2) TSH 3rd Generation 2.712 (0.358-3.74) uIU/mL Urine HCG, Qual (NEGATIVE) Salicylates 1.1 L (2.8-20) mg/dL Urine Opiates Screen (DCOCJJ=245) Ur Buprenorphine Scrn (CUTOFF=10) Ur Oxycodone Screen (UUH2UB=782) Urine Methadone Screen (ZOIZCH=724) Ur Propoxyphene Screen (DDUSQO=973) Acetaminophen 0 L (10-30) ug/mL Ur Barbiturates Screen (DKLKLT=435) Ur Tricyclics Screen (UAOWEN=359) Ur Phencyclidine Scrn (CUTOFF=25) Ur Amphetamine Screen (FWWLKM=767) U Methamphetamines Scrn (KVNILZ=771) U Benzodiazepines Scrn (VTIYWZ=560) U Cocaine Metab Screen (MYXFMV=066) U Marijuana (THC) Screen (CUTOFF=50) Ethyl Alcohol 0.14 (0.00) gm% SARS-CoV-2 RNA (LEESA) Negative (NEGATIVE) Medications Discontinued Medications Generic Name Dose Route Start Last Admin Trade Name Freq PRN Reason Stop Dose Admin Sodium Chloride 1,000 mls @ 150 mls/hr 08/24/20 22:15 08/24/20 22:30 Normal Saline IV 150 mls/hr ASDIRECTED LOREN Administration Influenza Virus Vaccine 1 each 08/24/20 22:20 Pharmacy To Dose - Influenza Vaccine IM 08/24/20 22:21 ONETIME ONE Influenza Virus Vaccine 60 mcg 08/24/20 22:30 Fluzone Quad [id number] Syringe IM 08/24/20 22:31 .ONCE ONE Medical Clearance: 08/24/20 22:09 As above, the patient drank an unknown quantity of alcohol and took an unknown number, presumedly 28, of alprazolam 1 mg at an unknown time tonight, as an apparent attempt at suicide. She denies ingesting anything else. Case discussed with Millie at the [facility] at 22:06. She pointed out that alprazolam absorbs fairly quickly, and usually peaks after about 2 hours. The half-life can be variable, typically lasting about 6 to 8 hours. She agreed with our current administration of IV fluid, and recommended that we apply oxygen, if necessary. If the patient's respiratory status declines to the point that intubation would be needed, she recommended that we first treat with Romazicon. She will check back with us later. I have ordered a standard psychiatric medical clearance panel, plus a swab for the SARS-CoV-2 virus, in anticipation that she will be psychiatrically admitted. 08/24/20 23:15 The patient's CBC is remarkable for mild thrombocytopenia of 174,000, and is otherwise unremarkable. Her CMP is remarkable for slight hypokalemia of 3.4 and is otherwise unremarkable. Her magnesium level is normal at 2.1. Her TSH is within normal limits at 2.712. Her salicylate level is within normal levels at 1.1. Her acetaminophen level is 0. Her EtOH level is elevated at 0.14. Her urine drug screen is positive for benzodiazepines, and is otherwise negative. Her urine test is negative. Results of her swab for the SARS-CoV-2 virus are still pending. 08/24/20 23:34 The patient's swab for the SARS-CoV-2 virus has returned negative. I am told that we do not have any medical beds available at this time, therefore the patient will need to stay here in the ED at least overnight, until she is sober and lucid. 08/25/20 06:45 The patient has done very well overnight. She did not require supplemental oxygen at any time. She has been cooperative, although has expressed several times that she wants to go home. Given her actions, I believe it is important that she be evaluated by a Psychiatrist. Case discussed with Jackeline at [facility] at 06:37. Case then discussed with Dr. Starks, Psychiatrist at [facility], at 06:40, who accepted the patient for admission to their psychiatric unit. He would like the patient to be under a 24-hour hold. The patient will therefore need to be transported by the [facility]'s department. Departure - Departure Time of Disposition: 06:46 Disposition: DC/Tfer to Psych Hosp/Unit 65 Condition: Good Clinical Impression: Suicide attempt by benzodiazepine overdose, Alcohol intoxication - Discharge Information *PRESCRIPTION DRUG MONITORING PROGRAM REVIEWED*: Not Applicable *COPY OF PRESCRIPTION DRUG MONITORING REPORT IN PATIENT SALMA: Not Applicable Referrals: Sharona Bahena NP [Primary Care Provider] - Eric Ceron MD [Physician] - Forms: ED Department Discharge Sepsis Event Note (ED) - Evaluation Sepsis Screening Result: No Definite Risk
[2020-08-24] MEDS ORDERED: Sodium Chloride 0.9% 1,000 ML IV SCH (22:15)
[2020-08-24] MEDS ORDERED: FLU VACC QS2020-21(6MOS UP)/PF 60 MCG/0.5 ML SYRINGE IM ONE (22:30)
[2020-08-24 23:07] LABS: ACETAMINOPHEN 0 ug/mL (10-30)
[2020-08-25 08:39] VITALS: BP 100/73; PULSE 90
== END 2020-08-25 08:20 ==
LOC: JD.ED 21:21
DX: T42.4X2A Poisoning by benzodiazepines, intentional self-harm, initial encounter (principal); F10.129 Alcohol abuse with intoxication, unspecified; Z20.822 Contact with and (suspected) exposure to COVID-19; Z88.0 Allergy status to penicillin; Z79.899 Other long term (current) drug therapy; Z72.0 Tobacco use; Y90.6 Blood alcohol level of 120-199 mg/100 ml
CPT/HCPCS: 36415; 80053; 80143; 80179; 80306; 80307; 81025; 83735; 84443; 85007; 85027; 87635; 93005; 99284; J7030; 93010; 99285; U0002

== ENCOUNTER 2020-09-02 15:12 | Emergency (ER) | payer MEDICAID ==
[2020-09-02 15:29] VITALS: BP 128/89; PULSE 89
--- NOTE | 2020-09-02 16:28 | EDM.PDOC ---
ED HPI GENERAL MEDICAL PROBLEM - General Chief Complaint: General Stated Complaint: COVID SX-SORE THROAT/CHILLS/BODY ACHES Time Seen by Provider: 09/02/20 15:46 Source of Information: Reports: Patient, RN Notes Reviewed - History of Present Illness INITIAL COMMENTS - FREE TEXT/NARRATIVE: 25 yr old female with onset of chills, rhinitis, cough, Tyson, achiness yesterday that continues today. Concerned she may have covid. Hx of bilpolar. C/O not able to sleep will. - Related Data Allergies Allergy/AdvReac Type Severity Reaction Status Date / Time amoxicillin Allergy Severe Hives Verified 09/02/20 15:29 Home Meds: Home Meds Multivitamin 1 tab PO DAILY 05/31/20 [History] Venlafaxine HCl [Venlafaxine ER] 150 mg PO BEDTIME 05/31/20 [History] norgestimate-ethinyl estradioL [[place] 28 Tablet] 1 tab PO BEDTIME 05/31/20 [History] ARIPiprazole [Abilify] 5 mg PO BEDTIME 09/02/20 [History] Iron 18 mg PO DAILY 09/02/20 [History] LORazepam [Ativan] 1 mg PO BEDTIME #7 tab 09/02/20 [Rx] Past Medical History - Past Health History Medical/Surgical History: Denies Medical/Surgical History HEENT History: Reports: Impaired Vision Other HEENT History: wears glasses, sinus infection, dental abcess, blurred visi on Cardiovascular History: Reports: None Respiratory History: Reports: Asthma Other Respiratory History: bronchiole asthma Gastrointestinal History: Reports: Gastritis Other Gastrointestinal History: GERD, viral gastroenteritis, gastritis, gastric biopsy Genitourinary History: Reports: UTI, Recurrent Other Genitourinary History: HPV, trichomonas, UTI, cystitis with hematuria, CINI, dysuria ROLL DOUGH DIVIDER History: Reports: , Other (See Below) Other ROLL DOUGH DIVIDER History: abnormal umbilical cord, , vaginal itching and discharge, amenorrhea, menorrhagia, pelvic inflammatory disease, LGSIL Musculoskeletal History: Reports: Other (See Below) Other Musculoskeletal History: right axilla mass Neurological History: Reports: Migraines, Other (See Below) Other Neuro History: headaches, numbness and tingling Psychiatric History: Reports: Addiction, Anxiety, Bipolar, Depression Other Psychiatric History: boarderline personality disorder. history of depression Endocrine/Metabolic History: Reports: None Hematologic History: Reports: Anemia Immunologic History: Reports: None Other Oncologic History: stomach biopsy Dermatologic History: Reports: Other (See Below) Other Dermatologic History: acne, skin neoplasm - Infectious Disease History Infectious Disease History: Reports: None - Past Surgical History HEENT Surgical History: Reports: Oral Surgery Other HEENT Surgeries/Procedures: wisdom teeth removed GI Surgical History: Reports: Cholecystectomy, EGD Female Surgical History: Reports: Other (See Below) Social & Family History - Family History Family Medical History: No Pertinent Family History - Caffeine Use Caffeine Use: Reports: None - Recreational Drug Use Recreational Drug Use: No - Living Situation & Occupation Living situation: Reports: Single, Other (Mother of her child's father) Occupation: Unemployed ED ROS GENERAL - Review of Systems Review Of Systems: See Below Constitutional: Reports: Fever (possible low grade), Chills HEENT: Reports: Rhinitis Respiratory: Reports: Shortness of Breath, Cough Cardiovascular: Denies: Chest Pain GI/Abdominal: Reports: Decreased Appetite, Nausea. Denies: Abdominal Pain, Diarrhea Musculoskeletal: Reports: Other (generalized achiness) Neurological: Reports: Headache ED EXAM, GENERAL - Physical Exam Exam: See Below General Appearance: Alert, No Apparent Distress Eye Exam: Bilateral Eye: PERRL Throat/Mouth: Normal Inspection Head: Atraumatic Neck: Supple Respiratory/Chest: No Respiratory Distress, Lungs Clear, Normal Breath Sounds Cardiovascular: Regular Rate, Rhythm GI/Abdominal: Non-Tender Back Exam: No: CVA Tenderness (L), CVA Tenderness (R) Extremities: Normal Inspection Neurological: Alert, Oriented, No Motor/Sensory Deficits Psychiatric: Normal Affect Skin Exam: Warm, Dry, Normal Color Course - Vital Signs Last Recorded V/S: Last Vital Signs Temp 98.9 F 09/02/20 15:25 Pulse 89 09/02/20 15:25 Resp 16 09/02/20 15:25 BP 128/89 09/02/20 15:25 Pulse Ox 100 09/02/20 15:25 - Orders/Labs/Meds Orders: Active Orders 24 hr Category Date Time Status Isolation [COMM] Routine Oth 09/02/20 16:19 Ordered Labs: Laboratory Tests 09/02/20 Range/Units 16:35 Influenza Type A RNA Negative (NEGATIVE) Influenza Type B RNA Negative (NEGATIVE) SARS-CoV-2 RNA (LEESA) Negative (NEGATIVE) - Re-Assessments/Exams Free Text/Narrative Re-Assessment/Exam: 09/03/20 15:46 sats 99 to 100. Flu screen and covid both neg. Departure - Departure Time of Disposition: 16:25 Disposition: Home, Self-Care 01 Condition: Fair Clinical Impression: Viral syndrome Insomnia Qualifiers: Insomnia type: unspecified Qualified Code(s): G47.00 - Insomnia, unspecified - Discharge Information Prescriptions: LORazepam [Ativan] 1 mg PO BEDTIME #7 tab Instructions: Viral Illness, Adult Referrals: Sharona Bahena NP [Primary Care Provider] - Forms: ED Department Discharge Additional Instructions: Rest. Self quarantine until you are feeling better. If covid postive quarantine for a total of 2 weeks. We will call your results in the next 1 to 2 hours. If you do not hear results from us by 6:30 this evening call the ED at [phone]. You may take tylenol as needed. Ativan 1 mg at bedtime to help you sleep. Prescription has been sent electronic to [facility]. Return to ED if you develop severe difficulty breathing or otherwise as needed. Sepsis Event Note (ED) - Evaluation Sepsis Screening Result: No Definite Risk - My Orders Last 24 Hours: My Active Orders 09/02/20 16:19 Isolation [COMM] Routine - Assessment/Plan Last 24 Hours: My Active Orders 09/02/20 16:19 Isolation [COMM] Routine
[2020-09-02 17:17] LABS: CORONAVIRUS COVID-19 NAA NEGATIVE (NEGATIVE)
== END 2020-09-02 17:05 | disposition home or self-care (01) ==
LOC: JD.ED 15:12
DX: B34.9 Viral infection, unspecified (principal); G47.00 Insomnia, unspecified; J45.909 Unspecified asthma, uncomplicated; Z20.822 Contact with and (suspected) exposure to COVID-19; Z88.0 Allergy status to penicillin; Z79.899 Other long term (current) drug therapy
CPT/HCPCS: 0240U; 99283

== ENCOUNTER 2020-09-22 10:10 | Emergency (ER) | payer MEDICAID ==
[2020-09-22] MEDS ORDERED: Metoclopramide 10 MG/2 ML SDV IVPUSH ONE (10:20)
[2020-09-22] MEDS ORDERED: diphenhydrAMINE 50 MG/ML SDV IVPUSH ONE (10:21)
[2020-09-22] MEDS ORDERED: HYDROmorphone 0.5 MG/0.5 ML Syringe IVPUSH ONE (10:22)
[2020-09-22 10:25] VITALS: BP 143/99; PULSE 67
--- NOTE | 2020-09-22 10:28 | EDM.PDOC ---
ED HPI GENERAL MEDICAL PROBLEM - General Chief Complaint: Gastrointestinal Problem Stated Complaint: VOMITING [id number] Time Seen by Provider: 09/22/20 10:18 Source of Information: Reports: Patient, Family History Limitations: Reports: No Limitations - History of Present Illness INITIAL COMMENTS - FREE TEXT/NARRATIVE: 25-year-old female presents to the ED with a 3-day history of recurrent nausea and vomiting of bilious material. She denies any diarrhea. Diffuse upper abdominal discomfort similar to what she experienced with her gallbladder attacks. Gallbladder was removed 4 to 5 months ago. She has tried Zofran and Phenergan gel without relief of nausea. Bentyl seem to help some with the abdominal pain. No previous abdominal surgery other than cholecystectomy. Cannot remember getting into any bad food to cause foodborne illness. Onset: Sudden Onset Date: 09/19/20 Duration: Day(s):, Constant Location: Reports: Abdomen (Intractable nausea and vomiting) Quality: Reports: Other Severity: Moderate (Tractable nausea and vomiting.) Improves with: Reports: None Worsens with: Reports: Eating Context: Denies: Activity, Exercise (To drink or eat.), Lifting, Sick Contact, Trauma, Other Associated Symptoms: Reports: Fever/Chills, Loss of Appetite, Malaise, Nausea/Vomiting, Weakness (Couple for 3 days generalized weakness lightheadedness and dizziness). Denies: No Other Symptoms, Confusion, Chest Pain, Cough, cough w sputum, Diaphoresis, Headaches, Rash, Seizure, Shortness of Breath, Syncope (Is at times with no fever) Treatments [employer]ER[employer]I [employer]KER: Reports: Other (see below) (Zofran sublingual did not seem to help at all.) Abdominal Pain Score (Numeric/FACES): 8 - Related Data Allergies Allergy/AdvReac Type Severity Reaction Status Date / Time amoxicillin Allergy Severe Hives Verified 09/22/20 10:25 Home Meds: Home Meds Multivitamin 1 tab PO DAILY 05/31/20 [History] Venlafaxine HCl [Venlafaxine ER] 150 mg PO BEDTIME 05/31/20 [History] norgestimate-ethinyl estradioL [[place] 28 Tablet] 1 tab PO BEDTIME 05/31/20 [History] ARIPiprazole [Abilify] 5 mg PO BEDTIME 09/02/20 [History] Iron 18 mg PO DAILY 09/02/20 [History] LORazepam [Ativan] 1 mg PO BEDTIME #7 tab 09/02/20 [Rx] Prochlorperazine Maleate [Compazine] 5 mg PO Q6H PRN #6 tablet 09/22/20 [Rx] Past Medical History - Past Health History Medical/Surgical History: Denies Medical/Surgical History HEENT History: Reports: Impaired Vision Other HEENT History: wears glasses, sinus infection, dental abcess, blurred vision Cardiovascular History: Reports: None Respiratory History: Reports: Asthma Other Respiratory History: bronchiole asthma Gastrointestinal History: Reports: Gastritis Other Gastrointestinal History: GERD, viral gastroenteritis, gastritis, gastric biopsy Genitourinary History: Reports: UTI, Recurrent Other Genitourinary History: HPV, trichomonas, UTI, cystitis with hematuria, CINI, dysuria [employer]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 history of depression Endocrine/Metabolic History: Reports: None Hematologic History: Reports: Anemia Immunologic History: Reports: None Other Oncologic History: stomach biopsy Dermatologic History: Reports: Other (See Below) Other Dermatologic History: acne, skin neoplasm - Infectious Disease History Infectious Disease History: Reports: None - Past Surgical History HEENT Surgical History: Reports: Oral Surgery Other HEENT Surgeries/Procedures: wisdom teeth removed GI Surgical History: Reports: Cholecystectomy, EGD Female Surgical History: Reports: Other (See Below) Social & Family History - Family History Family Medical History: No Pertinent Family History - Caffeine Use Caffeine Use: Reports: None - Living Situation & Occupation Living situation: Reports: Single, Other (Mother of her child's father) Occupation: Unemployed ED ROS GENERAL - Review of Systems Review Of Systems: See Below Constitutional: Reports: Chills, Malaise, Weakness, Fatigue, Decreased Appetite, Weight Loss. Denies: Fever HEENT: Reports: Glasses, Other (Patient has amblyopia getting worse on the right side. Visual acuity is markedly decreased in that eye.) Respiratory: Reports: No Symptoms Cardiovascular: Reports: No Symptoms Endocrine: Reports: Fatigue GI/Abdominal: Reports: Abdominal Pain, Decreased Appetite, Nausea, Vomiting. Denies: Constipation, Diarrhea (Particularly upper abdominal pain from vomiting so much.), Difficulty Swallowing, Distension, Flatus, Hematemesis, Hematochezia, Melena : Reports: Other (Recurrent history of intractable nausea and vomiting of bilious material. Urine is quite dark in color. She is not worried about . Period started yesterday.) Musculoskeletal: Reports: No Symptoms Skin: Reports: No Symptoms Neurological: Reports: No Symptoms Psychiatric: Reports: No Symptoms Hematologic/Lymphatic: Reports: No Symptoms Immunologic: Reports: No Symptoms ED EXAM, GI/ABD - Physical Exam Exam: See Below Exam Limited By: No Limitations General Appearance: Alert, WD/WN, Mild Distress, Other (Temperature is 36.5 degrees. Heart rate is 67. Respiratory 16 with O2 sats of 98% room air BP is 143/99.) Eyes: Bilateral: Normal Appearance (No scleral icterus or blepharal pallor.) Throat/Mouth: Other Head: Atraumatic, Normocephalic (Tongue is mildly dry.) Neck: Normal Inspection, Supple, Non-Tender, Full Range of Motion. No: Lymphadenopathy (L), Lymphadenopathy (R) Respiratory/Chest: No Respiratory Distress, Lungs Clear, Normal Breath Sounds, No Accessory Muscle Use Cardiovascular: Normal Peripheral Pulses, Regular Rate, Rhythm, No Edema, No Gallop GI/Abdominal Exam: Normal Bowel Sounds, No Organomegaly, No Mass, Pelvis Stable, Tender, Other (Events of recent laparoscopic cholecystectomy.). No: Guarding, Rigid, Rebound (Normalized tenderness with no peritoneal signs) Back Exam: Normal Inspection, Full Range of Motion. No: CVA Tenderness (L), CVA Tenderness (R) Extremities: Normal Inspection, Normal Range of Motion, Non-Tender, No Pedal Edema Neurological: Alert, Oriented, CN II-XII Intact, Normal Cognition Psychiatric: Normal Affect, Normal Mood Skin Exam: Warm, Dry, Intact, Normal Color, No Rash Course - Vital Signs Last Recorded V/S: Last Vital Signs Temp 36.5 C 09/22/20 10:21 Pulse 67 09/22/20 10:21 Resp 16 09/22/20 10:21 BP 143/99 H 09/22/20 10:21 Pulse Ox 98 09/22/20 10:21 - Orders/Labs/Meds Labs: Laboratory Tests 09/22/20 09/22/20 09/22/20 Range/Units 10:35 10:35 10:35 WBC 6.09 (3.98-10.04) K/mm3 RBC 4.42 (3.98-5.22) M/mm3 Hgb 13.8 (11.2-15.7) gm/dl Hct 42.0 (34.1-44.9) % MCV 95.0 H (79.4-94.8) fl MCH 31.2 (25.6-32.2) pg MCHC 32.9 (32.2-35.5) g/dl RDW Std Deviation 45.6 (36.4-46.3) fL Plt Count 337 D (182-369) K/mm3 MPV 11.5 (9.4-12.3) fl Neut % (Auto) 78.1 H (34.0-71.1) % Lymph % (Auto) 15.1 L (19.3-51.7) % [place] % (Auto) 6.4 (4.7-12.5) % Eos % (Auto) 0 L (0.7-5.8) Baso % (Auto) 0.2 (0.1-1.2) % Neut # (Auto) 4.76 (1.56-6.13) K/mm3 Lymph # (Auto) 0.92 L (1.18-3.74) K/mm3 [place] # (Auto) 0.39 H (0.24-0.36) K/mm3 Eos # (Auto) 0.00 L (0.04-0.36) K/mm3 Baso # (Auto) 0.01 (0.01-0.08) K/mm3 Sodium 137 (136-145) mEq/L Potassium 3.3 L (3.5-5.1) mEq/L Chloride 98 (98-107) mEq/L Carbon Dioxide 25 (21-32) mEq/L Anion Gap 17.3 H (5-15) BUN 23 H (7-18) mg/dL Creatinine 0.8 (0.55-1.02) mg/dL Est Cr Clr Drug Dosing TNP Estimated GFR (MDRD) > 60 (>60) mL/min BUN/Creatinine Ratio 28.8 H (14-18) Glucose 139 H (74-106) mg/dL Lactic Acid 1.7 (0.4-2.0) mmol/L Calcium 9.3 (8.5-10.1) mg/dL Total Bilirubin 0.8 (0.2-1.0) mg/dL AST 21 (15-37) U/L ALT 29 (14-59) U/L Alkaline Phosphatase 69 (46-116) U/L C-Reactive Protein 0.2 (<1.0) mg/dL Total Protein 8.2 (6.4-8.2) g/dl Albumin 4.1 (3.4-5.0) g/dl Globulin 4.1 gm/dL Albumin/Globulin Ratio 1.0 (1-2) Lipase 59 L (73-393) U/L Urine Color (Yellow) Urine Appearance (Clear) Urine pH (5.0-8.0) Ur Specific [place] (1.005-1.030) Urine Protein (Negative) Urine Glucose (UA) (Negative) Urine Ketones (Negative) Urine Occult Blood (Negative) Urine Nitrite (Negative) Urine Bilirubin (Negative) Urine Urobilinogen (0.2-1.0) Ur Leukocyte Esterase (Negative) Ketones (0.0-0.3) mM 09/22/20 09/22/20 Range/Units 10:35 11:38 WBC (3.98-10.04) K/mm3 RBC (3.98-5.22) M/mm3 Hgb (11.2-15.7) gm/dl Hct (34.1-44.9) % MCV (79.4-94.8) fl MCH (25.6-32.2) pg MCHC (32.2-35.5) g/dl RDW Std Deviation (36.4-46.3) fL Plt Count (182-369) K/mm3 MPV (9.4-12.3) fl Neut % (Auto) (34.0-71.1) % Lymph % (Auto) (19.3-51.7) % [place] % (Auto) (4.7-12.5) % Eos % (Auto) (0.7-5.8) Baso % (Auto) (0.1-1.2) % Neut # (Auto) (1.56-6.13) K/mm3 Lymph # (Auto) (1.18-3.74) K/mm3 [place] # (Auto) (0.24-0.36) K/mm3 Eos # (Auto) (0.04-0.36) K/mm3 Baso # (Auto) (0.01-0.08) K/mm3 Sodium (136-145) mEq/L Potassium (3.5-5.1) mEq/L Chloride (98-107) mEq/L Carbon Dioxide (21-32) mEq/L Anion Gap (5-15) BUN (7-18) mg/dL Creatinine (0.55-1.02) mg/dL Est Cr Clr Drug Dosing Estimated GFR (MDRD) (>60) mL/min BUN/Creatinine Ratio (14-18) Glucose (74-106) mg/dL Lactic Acid (0.4-2.0) mmol/L Calcium (8.5-10.1) mg/dL Total Bilirubin (0.2-1.0) mg/dL AST (15-37) U/L ALT (14-59) U/L Alkaline Phosphatase (46-116) U/L C-Reactive Protein (<1.0) mg/dL Total Protein (6.4-8.2) g/dl Albumin (3.4-5.0) g/dl Globulin gm/dL Albumin/Globulin Ratio (1-2) Lipase (73-393) U/L Urine Color Yellow (Yellow) Urine Appearance Clear (Clear) Urine pH 7.0 (5.0-8.0) Ur Specific [place] 1.015 (1.005-1.030) Urine Protein Negative (Negative) Urine Glucose (UA) 3+ H (Negative) Urine Ketones Negative (Negative) Urine Occult Blood Negative (Negative) Urine Nitrite Negative (Negative) Urine Bilirubin Negative (Negative) Urine Urobilinogen 1.0 (0.2-1.0) Ur Leukocyte Esterase Negative (Negative) Ketones 0.03 (0.0-0.3) mM - Radiology Interpretation Free Text/Narrative:: 25-year-old female presents to the ED with a 3-day history of intractable nausea vomiting without diarrhea. No real exposure to bad food to her knowledge. Emesis has been primarily bilious. She is lightheaded dizzy and weak upon standing. Diffuse upper abdominal discomfort. Previous abdominal surgery is that of a laparoscopic cholecystectomy performed 4 to 5 months ago. She states it feels similar to what she experienced with gallbladder attacks. Generalized abdominal tenderness on examination without peritonitis. Plan D5 Ringer's lactate at open. Reglan 7.5 mg IV with Benadryl 12.5 mg IV to prevent dystonic reaction as she is on venlafaxine. Dilaudid 0.5 mg IV for pain relief. Routine labs including lactic acid and serum ketones to be done. - Re-Assessments/Exams Free Text/Narrative Re-Assessment/Exam: 09/22/20 11:08 reports that she is feeling much improved. She has had about 500 mils of fluid infused. Pain is better nausea is better. Will await labs. 09/22/20 11:09 Hematology reveals a white count of 6.09 neutrophils are 78.1%. Hemoglobin is 13.8 with hematocrit of 42.0 MCV is 95.0. 09/22/20 11:50 She is feeling much better after IV fluids and medication for nausea relief. Will be discharged home. I did place her on Compazine 5 mg every 6 hours for the next 24 hours and then only as needed. She has tried Zofran sublingually and has had no success in controlling vomiting. Departure - Departure Time of Disposition: 11:52 Disposition: Home, Self-Care 01 Condition: Fair Clinical Impression: Viral gastritis, Intractable nausea and vomiting - Discharge Information *PRESCRIPTION DRUG MONITORING PROGRAM REVIEWED*: Not Applicable *COPY OF PRESCRIPTION DRUG MONITORING REPORT IN PATIENT SALMA: Not Applicable Prescriptions: Prochlorperazine Maleate [Compazine] 5 mg PO Q6H PRN #6 tablet PRN Reason: Nausea or vomiting Instructions: Gastritis, Adult, [id number], Nausea and Vomiting, Adult Referrals: Sharona Bahena NP [Primary Care Provider] - Forms: ED Department Discharge, ED Return to Work/School Form Additional Instructions: Evaluation in the emergency room in regards to persistent nausea and vomiting for the last 3 days. History suggests viral gastritis . You were treated with a liter of intravenous fluids in the emergency room and medication Reglan 7.5 mg IV to bring vomiting under control. Suggest crackers. May try jam on white bread. May then introduce soup such as broth soup, chicken noodle or turkey rice etc. Avoid dairy products and no apple juice or grape grape juice until his stomach is feeling better. May use Compazine tablet 5 mg strength 1 every 6 hours for the next 18 hours to prevent further nausea and vomiting. The next tablet would be due around 430 this afternoon. After this may use a tablet as needed for recurrence of nausea or vomiting. Return to medical care if vomiting persist longer than 24 hours. Sepsis Event Note (ED) - Focused Exam Vital Signs: Vital Signs Temp Pulse Resp BP Pulse Ox 09/22/20 10:21 36.5 C 67 16 143/99 H 98
[2020-09-22] MEDS ORDERED: Dextrose 5%-Lactated Ringers 1,000 ML IV SCH (10:30)
== END 2020-09-22 12:09 | disposition home or self-care (01) ==
LOC: JD.ED 10:10
DX: A08.4 Viral intestinal infection, unspecified (principal); J45.909 Unspecified asthma, uncomplicated; Z88.0 Allergy status to penicillin; Z79.899 Other long term (current) drug therapy
CPT/HCPCS: 36415; 80053; 81003; 82009; 83605; 83690; 85025; 86140; 96374; 96375; 99284; J1170; J1200; J2765; J7121

== ENCOUNTER 2020-09-23 05:44 | Emergency (ER) | payer MEDICAID ==
[2020-09-23] MEDS ORDERED: Metoclopramide 10 MG/2 ML SDV IVPUSH STA (06:26)
[2020-09-23] MEDS ORDERED: Sodium Chloride 0.9% 1,000 ML IV SCH (06:30)
--- NOTE | 2020-09-23 06:33 | EDM.PDOC ---
<Peng Desouza Kostas - Last Filed: 09/23/20 16:48> ED HPI GENERAL MEDICAL PROBLEM - General Chief Complaint: Gastrointestinal Problem Stated Complaint: vomiting Time Seen by Provider: 09/23/20 06:02 - Related Data Allergies Allergy/AdvReac Type Severity Reaction Status Date / Time amoxicillin Allergy Intermediate Hives Verified 09/23/20 11:50 Home Meds: Home Meds Multivitamin 1 tab PO DAILY 05/31/20 [History] Venlafaxine HCl [Venlafaxine ER] 150 mg PO BEDTIME 05/31/20 [History] norgestimate-ethinyl estradioL [[place]-Linyah 28 Tablet] 1 tab PO BEDTIME 05/31/20 [History] ARIPiprazole [Abilify] 5 mg PO BEDTIME 09/02/20 [History] Iron 18 mg PO DAILY 09/02/20 [History] LORazepam [Ativan] 1 mg PO BEDTIME #7 tab 09/02/20 [Rx] Prochlorperazine Maleate [Compazine] 5 mg PO Q6H PRN #6 tablet 09/22/20 [Rx] Metoclopramide HCl [Reglan] 5 mg PO Q8HR #10 tablet 09/23/20 [Rx] Course - Re-Assessments/Exams Free Text/Narrative Re-Assessment/Exam: 09/23/20 09:49 Have assumed care from Dr Collier after change of shift. I agree with his hx and exam as documented. Abd US and CT did not show acute findings. CT did show a lot of stool in the colon. See Radiology report for details. Will send her out with a bottle of mag citrate, reglan for N/V. Departure - Departure Time of Disposition: 09:50 Disposition: Home, Self-Care 01 Clinical Impression: Abdominal pain Qualifiers: Abdominal location: generalized Qualified Code(s): R10.84 - Generalized abdominal pain Constipation Qualifiers: Constipation type: unspecified constipation type Qualified Code(s): K59.00 - Constipation, unspecified - Discharge Information Prescriptions: Metoclopramide HCl [Reglan] 5 mg PO Q8HR #10 tablet Instructions: Abdominal Pain, Adult Referrals: Sharona Bahena CURVE SAW OPERATOR [Primary Care Provider] - Forms: ED Department Discharge Additional Instructions: Clear liquids until later today, than careful bland diet as tolerate. Reglan 5 mg q 8 hr if needed for further nausea or vomiting. Prescription has been sent to your Pharmacy. Mag Citrate 1/2 bottle in the next few hours, drink the remainder if no BM by this evening. Follow up clinic as needed. Return to ED as needed if symptoms worsening in any way. <Alan oCllier - Last Filed: 09/23/20 22:15> ED HPI GENERAL MEDICAL PROBLEM - General Source of Information: Reports: Patient, Significant Other (Fianc) History Limitations: Reports: Other (Yonas, unwilling to answer questions) - History of Present Illness INITIAL COMMENTS - FREE TEXT/NARRATIVE: Ms. Brown is a 25-year-old woman with a past medical history significant for untreated gastritis, who now presents to the ED stating that she has had nausea, vomiting, and abdominal pain since Sunday afternoon, 09/20/2020. She states that her current symptoms are virtually identical to those she experienced prior to her cholecystectomy on 06/01/2020. She states that she was seen at the walk-in clinic on 09/21/2020. She states that the provider suggested that she undergo an ultrasound of her right upper quadrant, however, did not order one. She was then seen in this ED yesterday, 09/22/2020. Records indicate that her work-up included a CBC, CMP, lactic acid level, lipase level, CRP, serum ketones, and a urinalysis. Her entire work-up was unremarkable. She was treated with IV Reglan, IV Benadryl, IV Dilaudid, and IV fluid, with significant improvement in her symptoms. She was then discharged home with a prescription for Compazine 5 mg po Q6 hrs prn, she states she has been taking as prescribed, but states that her nausea, vomiting, and abdominal pain returned about 1 hour after she was discharged. The patient states that no one else in her household is similarly ill. She states that her last oral intake was some crackers here in the ED yesterday. The patient states that due to her nausea and vomiting, she has not been able to take her usually prescribed medications for the past 2 or 3 days. Here in the ED today, the patient is found to be hemodynamically stable, afebrile, saturating 100% on room air. Prior to Sunday, the patient denies having a recent fever, chills, sore throat, ear pain, nasal or sinus congestion, cough, dyspnea, chest pain, palpitations, nausea, vomiting, constipation, diarrhea, abdominal pain, urinary symptoms, recent weight gain or weight loss, recent bloody bowel movements or black bowel movements, recent joint aches, headaches, or rashes. The patient's PCP is Sharona Bahena NP. Her Surgeon is Dr. Eric Ceron. She received an influenza vaccine on 08/24/2020. Abdomen Pain Score (Numeric/FACES): 9 Past Medical History HEENT History: Reports: Impaired Vision (wears glasses) Gastrointestinal History: Reports: Gastritis (untreated) Other Gastrointestinal History: GERD, viral gastroenteritis, gastritis, gastric biopsy Psychiatric History: Reports: Addiction (methamphetamine), Anxiety, Bipolar, Depression, Other (See Below) (Borderline personality disorder) - Past Surgical History HEENT Surgical History: Reports: Oral Surgery (dental extractions) GI Surgical History: Reports: Cholecystectomy (06/01/2020), EGD (x 2) Female Surgical History: Reports: Other (See Below) (Cervical colposcopy) Social & Family History - Tobacco Use Tobacco Use Status *Q: Current Every Day Tobacco User Years of Tobacco use: 5 Packs/Tins Daily: 0.1 Packs/Tins Daily Comment: Down from 1/2 ppd - Caffeine Use Caffeine Use: Reports: None - Alcohol Use Alcohol Use History: Yes Alcohol Use Frequency: Socially - Recreational Drug Use Recreational Drug Use: Yes Drug Use in Last 12 Months: Yes Recreational Drug Type: Reports: Marijuana/Hashish, Methamphetamine (snorts, smokes), Xanax (overdosed 08/24/2020) - Living Situation & Occupation Living situation: Reports: Single, with Significant Other (Fianc), with Family (Daughter) Occupation: Unemployed ED ROS GENERAL - Review of Systems Review Of Systems: Comprehensive ROS is negative, except as noted in HPI. ED EXAM, GI/ABD - Physical Exam Exam: See Below Exam Limited By: No Limitations General Appearance: Alert, No Apparent Distress, Thin Eyes: Bilateral: Normal Appearance, EOMI Ears: Normal External Exam, Hearing Grossly Normal Nose: Normal Inspection Throat/Mouth: Normal Inspection, Normal Lips, Normal Voice, No Airway Compromise Head: Atraumatic, Normocephalic Neck: Normal Inspection, Full Range of Motion Respiratory/Chest: No Respiratory Distress, Lungs Clear, Normal Breath Sounds, No Accessory Muscle Use Cardiovascular: Normal Peripheral Pulses, Regular Rate, Rhythm, No Edema, No Gallop, No JVD, No Murmur, No Rub GI/Abdominal Exam: Normal Bowel Sounds, Soft, No Organomegaly, No Distention, No Abnormal Bruit, No Mass, Tender (Diffuse, non-focal) Back Exam: Normal Inspection, Full Range of Motion, NT Extremities: Normal Inspection, Normal Range of Motion, No Pedal Edema, Normal Capillary Refill Neurological: Alert, Oriented, Normal Cognition, No Motor/Sensory Deficits Psychiatric: Flat Affect Skin Exam: Warm, Dry, Intact, Normal Color, No Rash Course - Vital Signs Last Recorded V/S: Last Vital Signs Temp 36.7 C 09/23/20 10:28 Pulse 80 09/23/20 10:28 Resp 13 09/23/20 09:01 BP 114/69 09/23/20 10:28 Pulse Ox 98 09/23/20 09:01 - Orders/Labs/Meds Labs: Laboratory Tests 09/23/20 09/23/20 09/23/20 Range/Units 06:31 06:38 06:38 Sodium 139 (136-145) mEq/L Potassium 3.3 L (3.5-5.1) mEq/L Chloride 99 (98-107) mEq/L Carbon Dioxide 27 (21-32) mEq/L Anion Gap 16.3 H (5-15) BUN 16 (7-18) mg/dL Creatinine 0.9 (0.55-1.02) mg/dL Est Cr Clr Drug Dosing 79.73 mL/min Estimated GFR (MDRD) > 60 (>60) mL/min BUN/Creatinine Ratio 17.8 (14-18) Glucose 119 H (74-106) mg/dL Calcium 9.7 (8.5-10.1) mg/dL Magnesium 1.7 L (1.8-2.4) mg/dl Total Bilirubin 0.7 (0.2-1.0) mg/dL AST 30 (15-37) U/L ALT 34 (14-59) U/L Alkaline Phosphatase 71 (46-116) U/L Total Protein 8.2 (6.4-8.2) g/dl Albumin 4.1 (3.4-5.0) g/dl Globulin 4.1 gm/dL Albumin/Globulin Ratio 1.0 (1-2) Urine HCG, Qual Negative (NEGATIVE) Urine Opiates Screen Negative (PPRROH=037) Ur Buprenorphine Scrn Negative (CUTOFF=10) Ur Oxycodone Screen Negative (CFZ5LH=189) Urine Methadone Screen Negative (JGACHB=498) Ur Propoxyphene Screen Negative (JXWTUK=635) Ur Barbiturates Screen Negative (UTDZHQ=575) Ur Tricyclics Screen Negative (DGELYL=638) Ur Phencyclidine Scrn Negative (CUTOFF=25) Ur Amphetamine Screen Negative (QDGHQC=357) U Methamphetamines Scrn Negative (MNSDKH=077) U Benzodiazepines Scrn Presumptive positive H (RNYUXN=373) U Cocaine Metab Screen Negative (LQFPKN=232) U Marijuana (THC) Screen Negative (CUTOFF=50) - Re-Assessments/Exams Free Text/Narrative Re-Assessment/Exam: 09/23/20 06:27 As above, patient has been experiencing generalized abdominal pain with nausea vomiting since Sunday, was seen at the walk-in clinic on Sunday, where an ultrasound of the right upper quadrant was suggested but not ordered, then seen in this ED yesterday, where she had a rather extensive work-up, and had good relief following IV Reglan, IV Benadryl, IV Dilaudid, and IV fluid, but now returns stating that her symptoms recurred about an hour after she left the ED, despite taking Compazine that was prescribed. On examination, she complains of diffuse abdominal tenderness. I don't need to repeat all of the tests that were done yesterday, but I will repeat a CMP, and add a magnesium level, urine test, and urine drug screen, particularly since she denied having a history of any drug use, despite a well-documented history of methamphetamine addiction, as well as other drugs. Because it has been less than a year since she had a cholecystectomy, and because she states that her current symptoms are essentially the same as those that she experienced prior to her cholecystectomy in May 2020, I have ordered an ultrasound of the right upper quadrant to evaluate for a retained stone. After she has returned from that, she can begin drinking some oral contrast, as well as she can tolerate it, to undergo a CT of the abdomen and pelvis with oral and IV contrast, which I ordered because of her diffuse abdominal tenderness. In the meantime, the patient will be given some IV fluid and IV Reglan to see if we can get her nausea under control. The patient asked for pain medication, however, I am reluctant to order anything at this time, as it may worsen her nausea and vomiting, which is her primary complaint. 09/23/20 07:28 The patient's CMP is remarkable for mild hypokalemia 3.3, and anion gap slightly elevated at 16.3, but with a bicarbonate normal at 27, and mild hyperglycemia of 119, with the remainder of her CMP being unremarkable. Her magnesium level is slightly depressed at 1.7. Her urine test is negative. Her urine drug screen is positive for benzodiazepines, and is otherwise negative. Please note that the patient's medication list includes lorazepam. Case discussed with Dr. Desouza, and care of the patient turned over to him at this time, for change of shift. Sepsis Event Note (ED) - Evaluation Sepsis Screening Result: No Definite Risk - Focused Exam Vital Signs: Vital Signs Temp Pulse BP 09/23/20 10:28 36.7 C 80 114/69
[2020-09-23] MEDS ORDERED: Sodium Chloride 0.9% 10 ML Syringe FLUSH ONE (08:12)
[2020-09-23] MEDS ORDERED: Iopamidol 612 MG/ML 100 ML Bottle IVPUSH ONE (08:12)
[2020-09-23] MEDS ORDERED: Diatrizoate Meglumine/Diatrizoate Sodium 37% 120 ML Bottle PO ONE (08:12)
--- NOTE | 2020-09-23 08:14 | US ---
Limited abdominal ultrasound: Multiple real-time images of the upper right abdomen were obtained. Comparison: Prior limited abdominal ultrasound of 04/11/20. Liver shows no focal abnormality. Visualized portions of the pancreas appear within normal limits. Previous cholecystectomy is noted. No biliary duct dilatation is seen. Proximal aorta shows no aneurysm. Inferior vena cava is patent. Main portal vein shows normal hepatopedal flow. Impression: 1. Nothing acute is seen on right upper quadrant abdominal ultrasound. Diagnostic code #1 I agree with preliminary report issued by [facility] report finalized on 09/23/20, 8:48 AM [employer]ISH[employer]
[2020-09-23] MEDS ORDERED: HYDROmorphone 1 MG/ML Syringe IVPUSH ONE (08:46)
--- NOTE | 2020-09-23 08:58 | CT ---
CT abdomen and pelvis Technique: Multiple axial sections were obtained from above the dome of the diaphragm inferiorly to the pubic symphysis. Intravenous contrast was utilized. No oral contrast has been given. Reconstructed coronal and sagittal images were obtained. Findings: Slight linear density is noted within right middle lobe either due to atelectasis or scarring. Liver shows no focal parenchymal abnormality. Spleen appears within normal limits. Adrenal glands show no nodule. Kidneys show symmetric contrast enhancement without hydronephrosis or mass. Pancreas shows no discrete abnormality. Aorta shows no aneurysm. No retroperitoneal adenopathy or mesenteric abnormalities are appreciated. Appendix is seen and appears to be normal in size. No pelvic mass or adenopathy is seen. Slight increased stool is seen throughout the colon. No free fluid or inflammatory change is appreciated. Bone window settings were reviewed which shows no acute osseous finding. Impression: 1. Mild increased stool within colon. 2. Nothing acute is otherwise seen on CT study of the abdomen and pelvis. Diagnostic code #2 This report was dictated in MDT
[2020-09-23] MEDS ORDERED: Magnesium Citrate Solution 296 ML Bottle PO ONE (09:50)
[2020-09-23 10:33] VITALS: BP 114/69; PULSE 80
== END 2020-09-23 10:33 | disposition home or self-care (01) ==
LOC: JD.ED 05:44
DX: K59.00 Constipation, unspecified (principal); Z88.0 Allergy status to penicillin; Z79.899 Other long term (current) drug therapy; Z72.0 Tobacco use
CPT/HCPCS: 36415; 74177; 76705; 80053; 80306; 81025; 83735; 96374; 96375; 99284; A9270; J1170; J2765; J7030; Q9963; Q9967

== ENCOUNTER 2020-09-24 06:28 | Emergency (ER) | payer MEDICAID ==
[2020-09-24 06:38] VITALS: BP 157/110; PULSE 77
--- NOTE | 2020-09-24 07:22 | EDM.PDOC ---
ED HPI GENERAL MEDICAL PROBLEM - General Chief Complaint: Gastrointestinal Problem Stated Complaint: ABDOMINAL PAIN/VOMITING Time Seen by Provider: 09/24/20 07:06 - History of Present Illness INITIAL COMMENTS - FREE TEXT/NARRATIVE: 25-year-old female now returns to the emergency room with continued nausea and vomiting. Patient has been seen the last couple of days with a similar complaint she has had burning extensive work-up including multiple lab checks CT and ultrasound nothing has been diagnostic. She leaves the department feeling well but her symptoms return. She states she had nausea and vomiting now this is the fifth day. She has some upper abdominal discomfort and it hurts if she takes a deep breath. The pain seems to be the subxiphoid xiphoid area and perhaps upper esophagus. Patient states she has untreated gastritis. She has been using Compazine but states she is out, she also has a few Zofran at home. Patient denies any fevers or chills. Abdomen Pain Score (Numeric/FACES): 10 - Related Data Allergies Allergy/AdvReac Type Severity Reaction Status Date / Time amoxicillin Allergy Intermediate Hives Verified 09/24/20 06:39 Home Meds: Home Meds Multivitamin 1 tab PO DAILY 05/31/20 [History] Venlafaxine HCl [Venlafaxine ER] 150 mg PO BEDTIME 05/31/20 [History] norgestimate-ethinyl estradioL [[place]-Linyah 28 Tablet] 1 tab PO BEDTIME 05/31/20 [History] ARIPiprazole [Abilify] 5 mg PO BEDTIME 09/02/20 [History] Iron 18 mg PO DAILY 09/02/20 [History] LORazepam [Ativan] 1 mg PO BEDTIME #7 tab 09/02/20 [Rx] Prochlorperazine Maleate [Compazine] 5 mg PO Q6H PRN #6 tablet 09/22/20 [Rx] Metoclopramide HCl [Reglan] 5 mg PO Q8HR #10 tablet 09/23/20 [Rx] Famotidine [Pepcid] 20 mg PO ASDIRECTED #30 tablet 09/24/20 [Rx] Ondansetron [Zofran ODT] 4 - 8 mg PO QID #12 tab.dis 09/24/20 [Rx] Potassium Chloride [Klor-Con M20] 20 meq PO BID #6 tab.er 09/24/20 [Rx] Past Medical History - Past Health History Medical/Surgical History: Denies Medical/Surgical History HEENT History: Reports: Impaired Vision Other HEENT History: wears glasses, sinus infection, dental abcess, blurred vision Cardiovascular History: Reports: None Respiratory History: Reports: Asthma Other Respiratory History: bronchiole asthma Gastrointestinal History: Reports: Gastritis Other Gastrointestinal History: GERD, viral gastroenteritis, gastritis, gastric biopsy Genitourinary History: Reports: UTI, Recurrent Other Genitourinary History: HPV, trichomonas, UTI, cystitis with hematuria, CINI, dysuria INLAYER History: Reports: , Other (See Below) Other INLAYER History: abnormal umbilical cord, , vaginal itching and discharge, amenorrhea, menorrhagia, pelvic inflammatory disease, LGSIL Musculoskeletal History: Reports: Other (See Below) Other Musculoskeletal History: right axilla mass Neurological History: Reports: Migraines, Other (See Below) Other Neuro History: headaches, numbness and tingling Psychiatric History: Reports: Addiction, Anxiety, Bipolar, Depression, Other (See Below) Other Psychiatric History: boarderline personality disorder. history of depression Endocrine/Metabolic History: Reports: None Hematologic History: Reports: Anemia Immunologic History: Reports: None Other Oncologic History: stomach biopsy Dermatologic History: Reports: Other (See Below) Other Dermatologic History: acne, skin neoplasm - Infectious Disease History Infectious Disease History: Reports: None - Past Surgical History HEENT Surgical History: Reports: Oral Surgery Other HEENT Surgeries/Procedures: wisdom teeth removed GI Surgical History: Reports: Cholecystectomy, EGD Social & Family History - Family History Family Medical History: No Pertinent Family History - Tobacco Use Tobacco Use Status *Q: Current Every Day Tobacco User Years of Tobacco use: 6 Packs/Tins Daily: 0.5 - Caffeine Use Caffeine Use: Reports: Coffee, Soda - Recreational Drug Use Recreational Drug Use: No - Living Situation & Occupation Living situation: Reports: Single, with Significant Other (Fianc), with Family (Daughter) Occupation: Unemployed ED ROS GENERAL - Review of Systems Review Of Systems: See Below Constitutional: Reports: No Symptoms HEENT: Reports: No Symptoms Respiratory: Reports: Other (He has some upper abdominal discomfort when she breathes out.) Cardiovascular: Reports: No Symptoms Endocrine: Reports: No Symptoms GI/Abdominal: Reports: Abdominal Pain (Upper abdominal discomfort), Nausea, Vomiting, Other (Significant stool accumulation noted on recent imaging. Patient states that she had a significant BM last night or this morning. She was not certain of the exact time.). Denies: Diarrhea : Reports: No Symptoms Psychiatric: Reports: Anxiety (Patient denies anxiety but she appears quite anxious, perhaps under the influence.) ED EXAM, GI/ABD - Physical Exam Exam: See Below Exam Limited By: Other (Patient answers questions however, changes her mind.) General Appearance: Alert, Anxious (She appears quite anxious she has a hard time holding still. Patient has a history of drug abuse, she could be under the influence.) Head: Atraumatic, Normocephalic Neck: Normal Inspection, Supple, Non-Tender, Full Range of Motion. No: Lymphadenopathy (L), Lymphadenopathy (R) Respiratory/Chest: No Respiratory Distress, Lungs Clear, Normal Breath Sounds Cardiovascular: Regular Rate, Rhythm, No Edema, No Murmur GI/Abdominal Exam: Normal Bowel Sounds, Soft, Other (Some upper abdominal discomfort with palpation mostly in the epigastric and left upper quadrant) Back Exam: Normal Inspection. No: CVA Tenderness (L), CVA Tenderness (R) Extremities: Normal Inspection, No Pedal Edema Neurological: Alert, Normal Cognition (She seems to give a reasonable history but is quite anxious) Psychiatric: Anxious, Other (Patient had benzodiazepines in her system on her most recent drug screen.) Course - Vital Signs Last Recorded V/S: Last Vital Signs Temp 36.4 C 09/24/20 06:35 Pulse 77 09/24/20 06:35 Resp 20 09/24/20 06:35 BP 157/110 H 09/24/20 06:35 Pulse Ox 100 09/24/20 06:35 - Orders/Labs/Meds Labs: Laboratory Tests 09/24/20 09/24/20 Range/Units 06:47 06:47 WBC 5.04 (3.98-10.04) K/mm3 RBC 4.28 (3.98-5.22) M/mm3 Hgb 13.2 (11.2-15.7) gm/dl Hct 40.3 (34.1-44.9) % MCV 94.2 (79.4-94.8) fl MCH 30.8 (25.6-32.2) pg MCHC 32.8 (32.2-35.5) g/dl RDW Std Deviation 44.1 (36.4-46.3) fL Plt Count 292 (182-369) K/mm3 MPV 11.5 (9.4-12.3) fl Neut % (Auto) 51.4 (34.0-71.1) % Lymph % (Auto) 32.1 (19.3-51.7) % Parmer % (Auto) 10.7 (4.7-12.5) % Eos % (Auto) 4.8 (0.7-5.8) Baso % (Auto) 0.8 (0.1-1.2) % Neut # (Auto) 2.59 (1.56-6.13) K/mm3 Lymph # (Auto) 1.62 (1.18-3.74) K/mm3 Parmer # (Auto) 0.54 H (0.24-0.36) K/mm3 Eos # (Auto) 0.24 (0.04-0.36) K/mm3 Baso # (Auto) 0.04 (0.01-0.08) K/mm3 Sodium 140 (136-145) mEq/L Potassium 3.2 L (3.5-5.1) mEq/L Chloride 102 (98-107) mEq/L Carbon Dioxide 25 (21-32) mEq/L Anion Gap 16.2 H (5-15) BUN 13 (7-18) mg/dL Creatinine 0.8 (0.55-1.02) mg/dL Est Cr Clr Drug Dosing 89.29 mL/min Estimated GFR (MDRD) > 60 (>60) mL/min BUN/Creatinine Ratio 16.3 (14-18) Glucose 107 H (74-106) mg/dL Calcium 9.5 (8.5-10.1) mg/dL Total Bilirubin 0.4 (0.2-1.0) mg/dL AST 23 (15-37) U/L ALT 38 (14-59) U/L Alkaline Phosphatase 64 (46-116) U/L Total Protein 7.5 (6.4-8.2) g/dl Albumin 3.8 (3.4-5.0) g/dl Globulin 3.7 gm/dL Albumin/Globulin Ratio 1.0 (1-2) Lipase 86 (73-393) U/L - Re-Assessments/Exams Free Text/Narrative Re-Assessment/Exam: 09/24/20 07:55 We will give her some fluids Zofran repeat the Zofran if we need to check some basic labs give her some Pepcid and attempt a GI cocktail. 09/24/20 08:56 Patient is requesting some for pain I will would like to hold off on this is her only current nausea and vomiting worse. And currently I think she might be under the influence of something. Her potassium came back lower at 3.2 we will give 10 mEq IV. We will give Carafate for the discomfort and see if this helps and give oral potassium after the Carafate has been in for a while 09/24/20 09:26 Apparently the patient vomited up the Carafate and is requesting pain medication. I am not can give her pain medication this might make the nausea and vomiting worse and I am uncertain of her motives. We will try Reglan and Benadryl. 09/24/20 12:15 I went ahead and gave her half milligram of Dilaudid and she is doing much better we will discharge her home at this time. Departure - Departure Time of Disposition: 12:15 Disposition: Home, Self-Care 01 Clinical Impression: Gastritis, Intractable nausea and vomiting - Discharge Information Referrals: Sharona Bahena NP [Primary Care Provider] - Forms: ED Department Discharge Additional Instructions: Return to the emergency room with any questions problems or worsening symptoms. I have refilled your Zofran 4 mg #12 take 1 or 2 every 6 hours as needed. I have also started you on some potassium is your potassium is low take 1 twice daily until they are gone. I have also started you on Pepcid 20 mg take 1 twice daily for 1 week then once daily Follow-up with your regular healthcare provider on Sunday for recheck. Sepsis Event Note (ED) - Evaluation Sepsis Screening Result: No Definite Risk - Focused Exam Vital Signs: Vital Signs Temp Pulse Resp BP Pulse Ox 09/24/20 06:35 36.4 C 77 20 157/110 H 100
[2020-09-24] MEDS ORDERED: Famotidine 20 MG/2 ML SDV IVPUSH ONE (07:24)
[2020-09-24] MEDS ORDERED: Lactated Ringers 1,000 ML IV ONE (07:24)
[2020-09-24] MEDS ORDERED: Ondansetron 4 MG/2 ML SDV IVPUSH ONE ×2 (07:29→07:56)
[2020-09-24] MEDS ORDERED: Alum Hydrox/Mag Hydrox/Simeth 30 ML, Lidocaine 2% 15 ML PO ONE ×2 (07:56)
[2020-09-24] MEDS ORDERED: Sucralfate Suspension 1 GM/10 ML Cup PO ONE (08:52)
[2020-09-24] MEDS ORDERED: Potassium Chloride 10 MEQ in Premix Bag 1 BAG IV ONE (08:55)
[2020-09-24] MEDS ORDERED: Metoclopramide 10 MG/2 ML SDV IVPUSH ONE (09:25)
[2020-09-24] MEDS ORDERED: diphenhydrAMINE 50 MG/ML SDV IVPUSH ONE (09:25)
[2020-09-24] MEDS ORDERED: HYDROmorphone 0.5 MG/0.5 ML Syringe IVPUSH ONE (11:20)
== END 2020-09-24 12:33 | disposition home or self-care (01) ==
LOC: JD.ED 06:28
DX: K29.70 Gastritis, unspecified, without bleeding (principal); J45.909 Unspecified asthma, uncomplicated; Z79.899 Other long term (current) drug therapy; Z88.0 Allergy status to penicillin; Z72.0 Tobacco use
CPT/HCPCS: 36415; 80053; 83690; 85025; 96365; 96367; 96375; 96376; 99284; A9270; J1170; J1200; J2405; J2765; J3475; J3480; J3490; J7120

== ENCOUNTER 2020-09-25 16:45 | Emergency (ER) | payer MEDICAID ==
[2020-09-25 17:16] VITALS: BP 145/103; PULSE 93
== END 2020-09-25 18:00 | disposition left against medical advice (07) ==
LOC: JD.ED 16:45
DX: Z53.21 Procedure and treatment not carried out due to patient leaving prior to being seen by health care provider (principal)

== ENCOUNTER 2020-09-26 12:44 | Emergency (ER) | payer MEDICAID ==
--- NOTE | 2020-09-26 13:21 | EDM.PDOC ---
ED HPI GENERAL MEDICAL PROBLEM - General Chief Complaint: Abdominal Pain Stated Complaint: ABDOMINAL PAIN Time Seen by Provider: 09/26/20 13:21 - History of Present Illness INITIAL COMMENTS - FREE TEXT/NARRATIVE: 25-year-old female returns the emergency room with abdominal pain and intractable nausea and vomiting. Patient has been here multiple times in the last week and a half with similar complaints of intractable nausea and vomiting and abdominal pain.. I saw her couple days ago her potassium was down to 3.2 she was started on supplemental potassium but she says this upsets her stomach. I refilled her Zofran but appa rently this is not working. At this time she is requesting something for pain. She has not had any fevers or chills thus far her laboratory evaluations multiple times have been negative she has had a abdominal ultrasound and CT that were both nondiagnostic. Upper Abdomen Pain Score (Numeric/FACES): 8 - Related Data Allergies Allergy/AdvReac Type Severity Reaction Status Date / Time amoxicillin Allergy Intermediate Hives Verified 09/25/20 17:15 Home Meds: Home Meds Venlafaxine HCl [Venlafaxine ER] 150 mg PO BEDTIME 05/31/20 [History] norgestimate-ethinyl estradioL [Yancey-Linyah 28 Tablet] 1 tab PO BEDTIME 05/31/20 [History] ARIPiprazole [Abilify] 5 mg PO BEDTIME 09/02/20 [History] Prochlorperazine Maleate [Compazine] 10 mg PO Q8H PRN #12 tablet 09/26/20 [Rx] Past Medical History - Past Health History Medical/Surgical History: Denies Medical/Surgical History HEENT History: Reports: Impaired Vision Other HEENT History: wears glasses, sinus infection, dental abcess, blurred vision Cardiovascular History: Reports: None Respiratory History: Reports: Asthma Other Respiratory History: bronchiole asthma Gastrointestinal History: Reports: Gastritis Other Gastrointestinal History: GERD, viral gastroenteritis, gastritis, gastric biopsy Genitourinary History: Reports: UTI, Recurrent Other Genitourinary History: HPV, trichomonas, UTI, cystitis with hematuria, CINI, dysuria ICD 9 CODER History: Reports: , Other (See Below) Other ICD 9 CODER History: abnormal umbilical cord, , vaginal itching and discharge, amenorrhea, menorrhagia, pelvic inflammatory disease, LGSIL Musculoskeletal History: Reports: Other (See Below) Other Musculoskeletal History: right axilla mass Neurological History: Reports: Migraines, Other (See Below) Other Neuro History: headaches, numbness and tingling Psychiatric History: Reports: Addiction, Anxiety, Bipolar, Depression, Other (See Below) Other Psychiatric History: boarderline personality disorder. history of depression Endocrine/Metabolic History: Reports: None Hematologic History: Reports: Anemia Immunologic History: Reports: None Other Oncologic History: stomach biopsy Dermatologic History: Reports: Other (See Below) Other Dermatologic History: acne, skin neoplasm - Infectious Disease History Infectious Disease History: Reports: None - Past Surgical History HEENT Surgical History: Reports: Oral Surgery Other HEENT Surgeries/Procedures: wisdom teeth removed Cardiovascular Surgical History: Reports: None Respiratory Surgical History: Reports: None GI Surgical History: Reports: Cholecystectomy, EGD Female Surgical History: Reports: Other (See Below) Endocrine Surgical History: Reports: None Neurological Surgical History: Reports: None Dermatological Surgical History: Reports: None Social & Family History - Family History Family Medical History: No Pertinent Family History - Tobacco Use Tobacco Use Status *Q: Current Some Day Tobacco User Years of Tobacco use: 1 Packs/Tins Daily: 0.1 - Caffeine Use Caffeine Use: Reports: None - Recreational Drug Use Recreational Drug Use: No - Living Situation & Occupation Living situation: Reports: Single, with Significant Other (Fianc), with Family (Daughter) Occupation: Unemployed ED ROS GENERAL - Review of Systems Review Of Systems: See Below Constitutional: Reports: No Symptoms HEENT: Reports: No Symptoms Respiratory: Reports: No Symptoms Cardiovascular: Reports: No Symptoms, Palpitations GI/Abdominal: Reports: No Symptoms : Reports: No Symptoms Musculoskeletal: Reports: No Symptoms Skin: Reports: No Symptoms Neurological: Reports: No Symptoms ED EXAM, GI/ABD - Physical Exam Exam: See Below Exam Limited By: No Limitations General Appearance: Alert, Other (She is having a hard time getting comfortable) Head: Atraumatic, Normocephalic Neck: Normal Inspection, Supple, Non-Tender, Full Range of Motion Respiratory/Chest: No Respiratory Distress, Lungs Clear, Normal Breath Sounds, No Accessory Muscle Use, Chest Non-Tender Cardiovascular: Regular Rate, Rhythm, No Edema, No Murmur GI/Abdominal Exam: Normal Bowel Sounds, Soft, Other (She has diffuse discomfort mostly upper abdominal. No rigidity or guarding no rebound) Back Exam: Normal Inspection. No: CVA Tenderness (L), CVA Tenderness (R) Neurological: Alert, Oriented Course - Vital Signs Last Recorded V/S: Last Vital Signs Temp 36.6 C 09/26/20 13:08 Pulse 100 09/26/20 13:08 Resp 16 09/26/20 13:08 BP 125/82 09/26/20 13:08 Pulse Ox 98 09/26/20 13:08 - Orders/Labs/Meds Labs: Laboratory Tests 09/26/20 09/26/20 Range/Units 14:15 14:15 WBC 5.94 (3.98-10.04) K/mm3 RBC 4.39 (3.98-5.22) M/mm3 Hgb 13.8 (11.2-15.7) gm/dl Hct 41.1 (34.1-44.9) % MCV 93.6 (79.4-94.8) fl MCH 31.4 (25.6-32.2) pg MCHC 33.6 (32.2-35.5) g/dl RDW Std Deviation 43.9 (36.4-46.3) fL Plt Count 278 (182-369) K/mm3 MPV 11.1 (9.4-12.3) fl Neut % (Auto) 59.1 (34.0-71.1) % Lymph % (Auto) 29.5 (19.3-51.7) % Yancey % (Auto) 10.4 (4.7-12.5) % Eos % (Auto) 0.5 L (0.7-5.8) Baso % (Auto) 0.3 (0.1-1.2) % Neut # (Auto) 3.51 (1.56-6.13) K/mm3 Lymph # (Auto) 1.75 (1.18-3.74) K/mm3 Yancey # (Auto) 0.62 H (0.24-0.36) K/mm3 Eos # (Auto) 0.03 L (0.04-0.36) K/mm3 Baso # (Auto) 0.02 (0.01-0.08) K/mm3 Sodium 133 L (136-145) mEq/L Potassium 3.0 L (3.5-5.1) mEq/L Chloride 96 L (98-107) mEq/L Carbon Dioxide 28 (21-32) mEq/L Anion Gap 12.0 (5-15) BUN 13 (7-18) mg/dL Creatinine 0.8 (0.55-1.02) mg/dL Est Cr Clr Drug Dosing TNP Estimated GFR (MDRD) > 60 (>60) mL/min BUN/Creatinine Ratio 16.3 (14-18) Glucose 109 H (74-106) mg/dL Calcium 9.3 (8.5-10.1) mg/dL Total Bilirubin 0.7 (0.2-1.0) mg/dL AST 19 (15-37) U/L ALT 37 (14-59) U/L Alkaline Phosphatase 57 (46-116) U/L Total Protein 7.6 (6.4-8.2) g/dl Albumin 3.9 (3.4-5.0) g/dl Globulin 3.7 gm/dL Albumin/Globulin Ratio 1.1 (1-2) Lipase 83 (73-393) U/L Meds: Medications Discontinued Medications Generic Name Dose Route Start Last Admin Trade Name Freq PRN Reason Stop Dose Admin Hydromorphone HCl 0.5 mg 09/26/20 15:14 09/26/20 15:17 Hydromorphone 0.5 Mg/0.5 Ml Syringe IVPUSH 09/26/20 15:15 0.5 mg ONETIME STA Administration Hydromorphone HCl Confirm 09/26/20 15:15 09/26/20 15:17 Hydromorphone 0.5 Mg/0.5 Ml Syringe Administered 09/26/20 15:16 Not Given Dose 0.5 mg .ROUTE .STK-MED ONE Lactated Ringer's 1,000 mls @ 999 mls/hr 09/26/20 14:06 09/26/20 14:24 Ringers, Lactated IV 09/26/20 15:06 999 mls/hr .BOLUS ONE Administration Ondansetron HCl 4 mg 09/26/20 14:06 09/26/20 14:24 Ondansetron 4 Mg/2 Ml Sdv IVPUSH 09/26/20 14:07 4 mg ONETIME ONE Administration Ondansetron HCl 4 mg 09/26/20 16:38 09/26/20 16:42 Ondansetron 4 Mg/2 Ml Sdv IVPUSH 09/26/20 16:39 4 mg ONETIME ONE Administration Potassium Chloride 10 meq 09/26/20 14:06 09/26/20 16:08 Potassium Chloride 10 Meq Tab.Er PO 09/26/20 14:07 10 meq ONETIME ONE Administration Potassium Chloride 10 meq 09/26/20 16:17 09/26/20 16:23 Potassium Chloride 10 Meq Tab.Er PO 09/26/20 16:18 10 meq ONETIME ONE Administration Potassium Chloride 10 meq 09/26/20 16:38 09/26/20 17:42 Potassium Chloride 10 Meq Tab.Er PO 09/26/20 16:39 Not Given ONETIME ONE Potassium Chloride 10 meq 09/26/20 16:39 09/26/20 17:42 Potassium Chloride 10 Meq Tab.Er PO 09/26/20 16:40 Not Given ONETIME ONE Prochlorperazine Edisylate 10 mg 09/26/20 17:48 09/26/20 17:58 Prochlorperazine 10 Mg/2 Ml Sdv IVPUSH 09/26/20 17:49 10 mg ONETIME ONE Administration - Re-Assessments/Exams Free Text/Narrative Re-Assessment/Exam: 09/26/20 18:23 The patient's labs look good except her potassium is down to 3.0. She did take 20 mEq of oral potassium here in the emergency department. We had mixed results using Zofran she had 2 doses of 4 mg. This was followed with 10 mg of Compazine patient had really good results with that. We will give her a prescription for Compazine she will get a prescription for potassium filled. Departure - Departure Time of Disposition: 18:24 Disposition: Home, Self-Care 01 Clinical Impression: Intractable nausea and vomiting - Discharge Information Referrals: Sharona Bahena NP [Primary Care Provider] - Forms: ED Department Discharge Additional Instructions: Return to the emergency room with any questions problems or worsening symptoms. Establish with a local healthcare provider. The phone number to the hospital clinic is [phone] I sent a prescription to [facility] for you to get filled first thing in the morning is for Compazine take 1 every 8 hours as needed for nausea and vomiting. It is essential you take the potassium you are given on your last evaluation here in the emergency department. Sepsis Event Note (ED) - Evaluation Sepsis Screening Result: No Definite Risk - Focused Exam Vital Signs: Vital Signs Temp Pulse Resp BP Pulse Ox 09/26/20 13:08 36.6 C 100 16 125/82 98
[2020-09-26] MEDS ORDERED: Ondansetron 4 MG/2 ML SDV IVPUSH ONE ×2 (14:06→16:38)
[2020-09-26] MEDS ORDERED: Potassium Chloride 10 MEQ Tab.ER PO ONE ×4 (14:06→16:39)
[2020-09-26] MEDS ORDERED: Lactated Ringers 1,000 ML IV ONE (14:06)
[2020-09-26] MEDS ORDERED: HYDROmorphone 0.5 MG/0.5 ML Syringe IVPUSH STA (15:14)
[2020-09-26] MEDS ORDERED: HYDROmorphone 0.5 MG/0.5 ML Syringe ONE (15:15)
[2020-09-26] MEDS ORDERED: Prochlorperazine 10 MG/2 ML SDV IVPUSH ONE (17:48)
[2020-09-26 18:47] VITALS: BP 129/89; PULSE 75
== END 2020-09-26 18:45 | disposition home or self-care (01) ==
LOC: JD.ED 12:44
DX: R11.2 Nausea with vomiting, unspecified (principal); R10.10 Upper abdominal pain, unspecified; J45.909 Unspecified asthma, uncomplicated; Z72.0 Tobacco use; Z88.0 Allergy status to penicillin; Z79.899 Other long term (current) drug therapy
CPT/HCPCS: 36415; 80053; 83690; 85025; 96374; 96375; 96376; 99284; A9270; J0780; J1170; J2405; J7120; 99283

== ENCOUNTER 2020-10-06 12:22 | Emergency (ER) | payer MEDICAID ==
[2020-10-06] MEDS ORDERED: Sodium Chloride 0.9% 1,000 ML IV STA (12:42)
[2020-10-06] MEDS ORDERED: Ondansetron 4 MG/2 ML SDV IVPUSH ONE (12:42)
[2020-10-06] MEDS ORDERED: Sodium Chloride 0.9% 10 ML Syringe FLUSH PRN (12:42)
[2020-10-06] MEDS ORDERED: HYDROmorphone 1 MG/ML Syringe IVPUSH ONE (12:43)
--- NOTE | 2020-10-06 13:10 | EDM.PDOC ---
ED HPI GENERAL MEDICAL PROBLEM - General Chief Complaint: Abdominal Pain Stated Complaint: ABDOMINAL PAIN/VOMITING Time Seen by Provider: 10/06/20 12:35 Source of Information: Reports: Patient History Limitations: Reports: No Limitations - History of Present Illness INITIAL COMMENTS - FREE TEXT/NARRATIVE: The patient presents with nausea, vomiting and abdominal pain. This has been an ongoing problems for months she was scheduled to get an endoscopy yesterday but it was postponed. The pain is on the right and upper left abdomen and it radiates to her back. She took zofran and compazine and that did not help. She has no fever, chills, cough, chest pain, or shortness of breath. She had her gallbladder removed years ago. Onset: Gradual Duration: Day(s): Location: Reports: Abdomen Quality: Reports: Sharp Severity: Moderate Improves with: Reports: None Worsens with: Reports: None Associated Symptoms: Reports: Nausea/Vomiting. Denies: Chest Pain, Cough, Fever/Chills, Headaches, Shortness of Breath Middle Abdomen Pain Score (Numeric/FACES): 9 - Related Data Allergies Allergy/AdvReac Type Severity Reaction Status Date / Time amoxicillin Allergy Intermediate Hives Verified 10/06/20 12:34 Home Meds: Home Meds Venlafaxine HCl [Venlafaxine ER] 150 mg PO BEDTIME 05/31/20 [History] norgestimate-ethinyl estradioL [Gray-Linyah 28 Tablet] 1 tab PO BEDTIME 05/31/20 [History] ARIPiprazole [Abilify] 5 mg PO BEDTIME 09/02/20 [History] Prochlorperazine Maleate [Compazine] 10 mg PO Q8H PRN #12 tablet 09/26/20 [Rx] Hydrocodone/Acetaminophen [Hydrocodone-Acetamin 5-325 mg] 1 - 2 each PO Q6HR PRN #15 tablet 10/06/20 [Rx] Past Medical History - Past Health History Medical/Surgical History: Denies Medical/Surgical History HEENT History: Reports: Impaired Vision Other HEENT History: wears glasses, sinus infection, dental abcess, blurred vision Cardiovascular History: Reports: None Respiratory History: Reports: Asthma Other Respiratory History: bronchiole asthma Gastrointestinal History: Reports: Gastritis Other Gastrointestinal History: GERD, viral gastroenteritis, gastritis, gastric biopsy Genitourinary History: Reports: UTI, Recurrent Other Genitourinary History: HPV, trichomonas, UTI, cystitis with hematuria, CINI, dysuria [employer]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 history of depression Endocrine/Metabolic History: Reports: None Hematologic History: Reports: Anemia Immunologic History: Reports: None Other Oncologic History: stomach biopsy Dermatologic History: Reports: Other (See Below) Other Dermatologic History: acne, skin neoplasm - Infectious Disease History Infectious Disease History: Reports: None - Past Surgical History HEENT Surgical History: Reports: Oral Surgery Other HEENT Surgeries/Procedures: wisdom teeth removed GI Surgical History: Reports: Cholecystectomy, EGD Female Surgical History: Reports: Other (See Below) Social & Family History - Family History Family Medical History: No Pertinent Family History - Tobacco Use Tobacco Use Status *Q: Current Every Day Tobacco User Years of Tobacco use: 2 Packs/Tins Daily: 0.5 - Caffeine Use Caffeine Use: Reports: Energy Drinks - Recreational Drug Use Recreational Drug Use: Yes Drug Use in Last 12 Months: No Recreational Drug Type: Reports: Methamphetamine - Living Situation & Occupation Living situation: Reports: Single, with Significant Other (Fianc), with Family (Daughter) Occupation: Unemployed ED ROS GENERAL - Review of Systems Review Of Systems: See Below Constitutional: Reports: No Symptoms HEENT: Reports: No Symptoms Respiratory: Reports: No Symptoms Cardiovascular: Reports: No Symptoms Endocrine: Reports: No Symptoms GI/Abdominal: Reports: Abdominal Pain, Nausea, Vomiting. Denies: Diarrhea : Reports: No Symptoms Musculoskeletal: Reports: No Symptoms Skin: Reports: No Symptoms ED EXAM, GI/ABD - Physical Exam Exam: See Below Exam Limited By: No Limitations General Appearance: Alert, No Apparent Distress Ears: Normal External Exam Nose: Normal Inspection Throat/Mouth: Normal Inspection Head: Atraumatic, Normocephalic Neck: Normal Inspection Respiratory/Chest: No Respiratory Distress, Lungs Clear, Normal Breath Sounds Cardiovascular: Regular Rate, Rhythm, No Edema, No Murmur GI/Abdominal Exam: Soft, No Organomegaly, No Mass, Tender (Moderate generalized tenderness) Course - Vital Signs Last Recorded V/S: Last Vital Signs Temp 97.7 F 10/06/20 12:30 Pulse 95 10/06/20 12:30 Resp 14 10/06/20 12:30 BP 153/105 H 10/06/20 12:30 Pulse Ox 100 10/06/20 12:30 - Orders/Labs/Meds Orders: Active Orders 24 hr Category Date Time Status Peripheral IV Care [RC] . DIRECTED Care 10/06/20 12:42 Active UA W/MICROSCOPIC [URIN] Stat Lab 10/06/20 14:10 Results Sodium Chloride 0.9% [Saline Flush] Med 10/06/20 12:42 Active 10 ml FLUSH ASDIRECTED PRN ED Antiemetic Medication Reflex [OM.PC] Stat Oth 10/06/20 12:42 Ordered Peripheral IV Insertion Adult [OM.PC] Stat Oth 10/06/20 12:42 Ordered Medication Orders Sodium Chloride (Sodium Chloride 0.9% 10 Ml Syringe) 10 ml FLUSH ASDIRECTED PRN PRN Reason: Keep Vein Open Last Admin: 10/06/20 13:09 Dose: 10 ml Documented by: BINH Labs: Laboratory Tests 10/06/20 10/06/20 10/06/20 Range/Units 13:15 13:15 13:15 WBC 6.72 (3.98-10.04) K/mm3 RBC 4.41 (3.98-5.22) M/mm3 Hgb 13.9 (11.2-15.7) gm/dl Hct 42.8 (34.1-44.9) % MCV 97.1 H D (79.4-94.8) fl MCH 31.5 (25.6-32.2) pg MCHC 32.5 (32.2-35.5) g/dl RDW Std Deviation 48.7 H (36.4-46.3) fL Plt Count 235 (182-369) K/mm3 MPV 11.3 (9.4-12.3) fl Neut % (Auto) 81.6 H (34.0-71.1) % Lymph % (Auto) 12.2 L (19.3-51.7) % Gray % (Auto) 6.1 (4.7-12.5) % Eos % (Auto) 0 L (0.7-5.8) Baso % (Auto) 0.0 L (0.1-1.2) % Neut # (Auto) 5.48 (1.56-6.13) K/mm3 Lymph # (Auto) 0.82 L (1.18-3.74) K/mm3 Gray # (Auto) 0.41 H (0.24-0.36) K/mm3 Eos # (Auto) 0.00 L (0.04-0.36) K/mm3 Baso # (Auto) 0.00 L (0.01-0.08) K/mm3 Sodium 139 (136-145) mEq/L Potassium 3.5 (3.5-5.1) mEq/L Chloride 100 (98-107) mEq/L Carbon Dioxide 26 (21-32) mEq/L Anion Gap 16.5 H (5-15) BUN 16 (7-18) mg/dL Creatinine 0.9 (0.55-1.02) mg/dL Est Cr Clr Drug Dosing 75.92 mL/min Estimated GFR (MDRD) > 60 (>60) mL/min BUN/Creatinine Ratio 17.8 (14-18) Glucose 124 H (74-106) mg/dL Calcium 9.8 (8.5-10.1) mg/dL Total Bilirubin 0.6 (0.2-1.0) mg/dL AST 19 (15-37) U/L ALT 26 (14-59) U/L Alkaline Phosphatase 55 (46-116) U/L Total Protein 8.0 (6.4-8.2) g/dl Albumin 4.2 (3.4-5.0) g/dl Globulin 3.8 gm/dL Albumin/Globulin Ratio 1.1 (1-2) Lipase 89 (73-393) U/L HCG, Qual Negative (NEGATIVE) Urine Color (Yellow) Urine Appearance (Clear) Urine pH (5.0-8.0) Ur Specific [place] (1.005-1.030) Urine Protein (Negative) Urine Glucose (UA) (Negative) Urine Ketones (Negative) Urine Occult Blood (Negative) Urine Nitrite (Negative) Urine Bilirubin (Negative) Urine Urobilinogen (0.2-1.0) Ur Leukocyte Esterase (Negative) 10/06/20 Range/Units 14:10 WBC (3.98-10.04) K/mm3 RBC (3.98-5.22) M/mm3 Hgb (11.2-15.7) gm/dl Hct (34.1-44.9) % MCV (79.4-94.8) fl MCH (25.6-32.2) pg MCHC (32.2-35.5) g/dl RDW Std Deviation (36.4-46.3) fL Plt Count (182-369) K/mm3 MPV (9.4-12.3) fl Neut % (Auto) (34.0-71.1) % Lymph % (Auto) (19.3-51.7) % Gray % (Auto) (4.7-12.5) % Eos % (Auto) (0.7-5.8) Baso % (Auto) (0.1-1.2) % Neut # (Auto) (1.56-6.13) K/mm3 Lymph # (Auto) (1.18-3.74) K/mm3 Gray # (Auto) (0.24-0.36) K/mm3 Eos # (Auto) (0.04-0.36) K/mm3 Baso # (Auto) (0.01-0.08) K/mm3 Sodium (136-145) mEq/L Potassium (3.5-5.1) mEq/L Chloride (98-107) mEq/L Carbon Dioxide (21-32) mEq/L Anion Gap (5-15) BUN (7-18) mg/dL Creatinine (0.55-1.02) mg/dL Est Cr Clr Drug Dosing mL/min Estimated GFR (MDRD) (>60) mL/min BUN/Creatinine Ratio (14-18) Glucose (74-106) mg/dL Calcium (8.5-10.1) mg/dL Total Bilirubin (0.2-1.0) mg/dL AST (15-37) U/L ALT (14-59) U/L Alkaline Phosphatase (46-116) U/L Total Protein (6.4-8.2) g/dl Albumin (3.4-5.0) g/dl Globulin gm/dL Albumin/Globulin Ratio (1-2) Lipase (73-393) U/L HCG, Qual (NEGATIVE) Urine Color Yellow (Yellow) Urine Appearance Slt cloudy H (Clear) Urine pH 7.5 (5.0-8.0) Ur Specific [place] 1.020 (1.005-1.030) Urine Protein 1+ H (Negative) Urine Glucose (UA) Negative (Negative) Urine Ketones Negative (Negative) Urine Occult Blood Negative (Negative) Urine Nitrite Negative (Negative) Urine Bilirubin Negative (Negative) Urine Urobilinogen 0.2 (0.2-1.0) Ur Leukocyte Esterase Negative (Negative) Meds: Medications Generic Name Dose Route Start Last Admin Trade Name Freq PRN Reason Stop Dose Admin Sodium Chloride 10 ml 10/06/20 12:42 10/06/20 13:09 Sodium Chloride 0.9% 10 Ml Syringe FLUSH 10 ml ASDIRECTED PRN Administration Keep Vein Open Discontinued Medications Generic Name Dose Route Start Last Admin Trade Name Freq PRN Reason Stop Dose Admin Hydromorphone HCl 1 mg 10/06/20 12:43 10/06/20 13:08 Hydromorphone 1 Mg/Ml Syringe IVPUSH 10/06/20 12:44 1 mg ONETIME ONE Administration Sodium Chloride 1,000 mls @ 1,000 mls/hr 10/06/20 12:42 10/06/20 13:09 Normal Saline IV 10/06/20 13:41 1,000 mls/hr .BOLUS STA Administration Ondansetron HCl 4 mg 10/06/20 12:42 10/06/20 13:08 Ondansetron 4 Mg/2 Ml Sdv IVPUSH 10/06/20 12:43 4 mg ONETIME ONE Administration - Re-Assessments/Exams Free Text/Narrative Re-Assessment/Exam: 10/06/20 13:12 I ordered an IV, NS 1Lbolus, zofran 4mg IV, dilaudid 1mg IV, and labs. 10/06/20 14:45 Her CBC and CMP look good. Her UA shows no UTI. Her HCG is negative. Her lipase is normal. She feels better. Departure - Departure Time of Disposition: 14:50 Disposition: Home, Self-Care 01 Condition: Good Clinical Impression: Abdominal pain Qualifiers: Abdominal location: generalized Qualified Code(s): R10.84 - Generalized abdominal pain Nausea & vomiting Qualifiers: Vomiting type: unspecified Vomiting Intractability: non-intractable Qualified Code(s): R11.2 - Nausea with vomiting, unspecified - Discharge Information *PRESCRIPTION DRUG MONITORING PROGRAM REVIEWED*: Not Applicable *COPY OF PRESCRIPTION DRUG MONITORING REPORT IN PATIENT SALMA: Not Applicable Prescriptions: Hydrocodone/Acetaminophen [Hydrocodone-Acetamin 5-325 mg] 1 - 2 each PO Q6HR PRN #15 tablet PRN Reason: Pain Referrals: Sharona Bahena NP [Primary Care Provider] - 1 Week Forms: ED Department Discharge Additional Instructions: Drink plenty of fluids. Take the zofran and compazine as needed for nausea and vomiting. Try tylenol or motrin for pain. If that does not work, try the hydrocodone. Follow up with your doctor. Please return if you are worse. Sepsis Event Note (ED) - Evaluation Sepsis Screening Result: No Definite Risk - Focused Exam Vital Signs: Vital Signs Temp Pulse Resp BP Pulse Ox 10/06/20 12:30 97.7 F 95 14 153/105 H 100 - My Orders Last 24 Hours: My Active Orders 10/06/20 12:42 Peripheral IV Care [RC] . DIRECTED Sodium Chloride 0.9% [Saline Flush] 10 ml FLUSH ASDIRECTED PRN ED Antiemetic Medication Reflex [OM.PC] Stat Peripheral IV Insertion Adult [OM.PC] Stat 10/06/20 14:10 UA W/MICROSCOPIC [URIN] Stat - Assessment/Plan Last 24 Hours: My Active Orders 10/06/20 12:42 Peripheral IV Care [RC] . DIRECTED Sodium Chloride 0.9% [Saline Flush] 10 ml FLUSH ASDIRECTED PRN ED Antiemetic Medication Reflex [OM.PC] Stat Peripheral IV Insertion Adult [OM.PC] Stat 10/06/20 14:10 UA W/MICROSCOPIC [URIN] Stat
[2020-10-06 15:18] VITALS: BP 120/60; PULSE 68
== END 2020-10-06 15:18 | disposition home or self-care (01) ==
LOC: JD.ED 12:22
DX: R10.84 Generalized abdominal pain (principal); R11.2 Nausea with vomiting, unspecified; J45.909 Unspecified asthma, uncomplicated; K21.9 Gastro-esophageal reflux disease without esophagitis; Z79.899 Other long term (current) drug therapy; Z88.1 Allergy status to other antibiotic agents; Z72.0 Tobacco use
CPT/HCPCS: 36415; 80053; 81001; 83690; 84703; 85025; 96374; 96375; 99284; J1170; J2405; J7030

== ENCOUNTER 2020-10-17 16:19 | Emergency (ER) | payer MEDICAID | END 2020-10-17 16:44 | disposition left against medical advice (07) | LOC: JD.ED 16:19 | DX: Z53.21 Procedure and treatment not carried out due to patient leaving prior to being seen by health care provider (principal) ==

== ENCOUNTER 2020-11-26 10:58 | Emergency (ER) | payer MEDICAID ==
--- NOTE | 2020-11-26 11:42 | EDM.PDOC ---
ED HPI GENERAL MEDICAL PROBLEM - General Chief Complaint: Neurological Problem Stated Complaint: MUSCLE SPASMS ON FACE Time Seen by Provider: 11/26/20 11:36 - History of Present Illness INITIAL COMMENTS - FREE TEXT/NARRATIVE: 28-year-old female comes the emergency room with facial movements. Several weeks ago the patient was started on Cogentin 1 mg twice daily for this as well she had much worse symptoms. She was down in [place] on vacation where she was started on this. And it is helped significantly. The patient is on Abilify. She has had no other complaints at this time. Treatments REGULATORY AUDITOR: Reports: Other (see below) Other Treatments REGULATORY AUDITOR: none Jaw Pain Score (Numeric/FACES): 8 - Related Data Allergies Allergy/AdvReac Type Severity Reaction Status Date / Time amoxicillin Allergy Intermediate Hives Verified 10/06/20 12:34 Home Meds: Home Meds Venlafaxine HCl [Venlafaxine ER] 150 mg PO BEDTIME 05/31/20 [History] norgestimate-ethinyl estradioL [Troup-Linyah 28 Tablet] 1 tab PO BEDTIME 05/31/20 [History] ARIPiprazole [Abilify] 10 mg PO BEDTIME 09/02/20 [History] Benztropine [Cogentin] 1 mg PO BID #14 tab 11/26/20 [Rx] Past Medical History - Past Health History Medical/Surgical History: Denies Medical/Surgical History HEENT History: Reports: Impaired Vision Other HEENT History: wears glasses, sinus infection, dental abcess, blurred visi on Cardiovascular History: Reports: None Respiratory History: Reports: Asthma Other Respiratory History: bronchiole asthma Gastrointestinal History: Reports: Gastritis Other Gastrointestinal History: GERD, viral gastroenteritis, gastritis, gastric biopsy Genitourinary History: Reports: UTI, Recurrent Other Genitourinary History: HPV, trichomonas, UTI, cystitis with hematuria, CINI, dysuria GAGE DESIGNER History: Reports: , Other (See Below) Other GAGE DESIGNER History: abnormal umbilical cord, , vaginal itching and discharge, amenorrhea, menorrhagia, pelvic inflammatory disease, LGSIL Musculoskeletal History: Reports: Other (See Below) Other Musculoskeletal History: right axilla mass Neurological History: Reports: Migraines, Other (See Below) Other Neuro History: headaches, numbness and tingling Psychiatric History: Reports: Addiction, Anxiety, Bipolar, Depression, Other (See Below) Other Psychiatric History: boarderline personality disorder. history of depression Endocrine/Metabolic History: Reports: None Hematologic History: Reports: Anemia Immunologic History: Reports: None Other Oncologic History: stomach biopsy Dermatologic History: Reports: Other (See Below) Other Dermatologic History: acne, skin neoplasm - Infectious Disease History Infectious Disease History: Reports: None - Past Surgical History HEENT Surgical History: Reports: Oral Surgery Other HEENT Surgeries/Procedures: wisdom teeth removed Cardiovascular Surgical History: Reports: None Respiratory Surgical History: Reports: None GI Surgical History: Reports: Cholecystectomy, EGD Endocrine Surgical History: Reports: None Neurological Surgical History: Reports: None Dermatological Surgical History: Reports: None Social & Family History - Family History Family Medical History: No Pertinent Family History - Tobacco Use Tobacco Use Status *Q: Current Every Day Tobacco User Years of Tobacco use: 2 Packs/Tins Daily: 1 - Caffeine Use Caffeine Use: Reports: Coffee, Energy Drinks, Soda, Tea - Recreational Drug Use Recreational Drug Use: No - Living Situation & Occupation Living situation: Reports: Single, with Significant Other (Fianc), with Family (Daughter) Occupation: Unemployed ED ROS GENERAL - Review of Systems Review Of Systems: See Below Constitutional: Reports: No Symptoms HEENT: Reports: No Symptoms Respiratory: Reports: No Symptoms Cardiovascular: Reports: No Symptoms GI/Abdominal: Reports: No Symptoms Neurological: Reports: Other (Involuntary facial movements) ED EXAM, GENERAL - Physical Exam Exam: See Below Exam Limited By: No Limitations General Appearance: Alert, No Apparent Distress Head: Atraumatic, Normocephalic Neck: Normal Inspection, Supple, Non-Tender, Full Range of Motion Respiratory/Chest: No Respiratory Distress, Lungs Clear, Normal Breath Sounds Cardiovascular: Normal Peripheral Pulses, Regular Rate, Rhythm, No Edema Course - Vital Signs Last Recorded V/S: Last Vital Signs Temp 37.1 C 11/26/20 11:17 Pulse 65 11/26/20 11:17 Resp 20 11/26/20 11:17 BP 107/69 11/26/20 11:17 Pulse Ox 99 11/26/20 11:17 - Re-Assessments/Exams Free Text/Narrative Re-Assessment/Exam: 11/26/20 11:47 I will give her a weeks worth of Cogentin 1 mg twice daily she has follow-up with her primary physician on Sunday or Sunday this next week. Departure - Departure Time of Disposition: 11:46 Disposition: Home, Self-Care 01 Clinical Impression: Medication reaction, Dystonic movements - Discharge Information Referrals: Sharona Bahena NP [Primary Care Provider] - Additional Instructions: Return to the emergency room with any questions problems or worsening symptoms. Follow-up with your provider as scheduled early next week. I given you a week's worth of the Cogentin take 1 twice daily start them as soon as you get them today. Sepsis Event Note (ED) - Evaluation Sepsis Screening Result: No Definite Risk - Focused Exam Vital Signs: Vital Signs Temp Pulse Resp BP Pulse Ox 11/26/20 11:17 37.1 C 65 20 107/69 99
[2020-11-26 11:54] VITALS: BP 110/70; PULSE 70
== END 2020-11-26 12:31 | disposition home or self-care (01) ==
LOC: JD.ED 10:58
DX: R25.8 Other abnormal involuntary movements (principal); T44.3X5A Adverse effect of other parasympatholytics [anticholinergics and antimuscarinics] and spasmolytics, initial encounter; Z88.0 Allergy status to penicillin; Z72.0 Tobacco use
CPT/HCPCS: 99283

== ENCOUNTER 2023-06-21 11:11 | Emergency (ER) | payer MEDICAID, SELFPAY ==
[2023-06-21] MEDS ORDERED: Sodium Chloride 0.9% 10 ML Syringe FLUSH PRN (11:52)
[2023-06-21] MEDS ORDERED: Ondansetron 4 MG/2 ML SDV IVPUSH ONE (11:53)
[2023-06-21] MEDS ORDERED: Sodium Chloride 0.9% 1,000 ML IV STA (11:53)
[2023-06-21] MEDS ORDERED: HYDROmorphone 0.5 MG/0.5 ML Syringe IVPUSH ONE (11:59)
[2023-06-21 12:06] LABS: APPEARANCE,URINE CLEAR (Clear); BILIRUBIN,URINE NEGATIVE (Negative); COLOR,URINE YELLOW (Yellow); GLUCOSE,URINE NEGATIVE (Negative); KETONES,URINE NEGATIVE (Negative); LEUKOCYTE ESTERASE,URINE NEGATIVE (Negative); NITRITE,URINE NEGATIVE (Negative); OCCULT BLOOD,URINE NEGATIVE (Negative); PROTEIN,URINE NEGATIVE (Negative); UROBILINOGEN,URINE 0.2 (0.2-1.0)
[2023-06-21 12:34] LABS: BASOPHILS PERCENT AUTO 0.5 % (0.0-1.0); EOSINOPHILS ABSOLUTE AUTO 0.3 K/mm3 (0.0-0.4); EOSINOPHILS PERCENT AUTO 4.4 % (0.0-6.0); HEMOGLOBIN 11.7 gm/dl (12.0-16.0); IMMATURE GRAN ABSOLUTE AUTO 0.01 K/mm3 (0.00-0.05); IMMATURE GRAN PERCENT AUTO 0.2 % (0.0-0.4); LYMPHOCYTES ABSOLUTE AUTO 1.4 K/mm3 (1.0-4.8); LYMPHOCYTES PERCENT AUTO 25.3 % (24.0-44.0); MEAN CORPUSCULAR HEMOGLOBIN 31.8 pg (28.0-32.0); MEAN CORPUSCULAR HGB CONC 32.5 g/dl (32.0-36.0); MEAN CORPUSCULAR VOLUME 97.8 fl (83.0-99.0); MEAN PLATELET VOLUME 11.8 fl (9.4-12.3); MONOCYTES ABSOLUTE AUTO 0.4 K/mm3 (0.0-0.8); NEUTROPHILS ABSOLUTE AUTO 3.6 K/mm3 (1.8-7.7); NEUTROPHILS PERCENT AUTO 62.6 % (41.0-71.0); PLATELET COUNT,PLT 160 K/mm3 (150-400); RED BLOOD CELL COUNT 3.68 M/mm3 (4.10-5.30); WHITE BLOOD CELL COUNT,WBC 5.69 K/mm3 (3.9-11.3)
[2023-06-21 12:41] LABS: A/G RATIO 1.1 (1-2); ALANINE AMINOTRANSFERASE,ALT 16 U/L (14-59); ALBUMIN 3.4 g/dl (3.4-5.0); ALKALINE PHOSPHATASE 67 U/L (46-116); ANION GAP 12.1 (5-15); ASPARTATE AMNIOTRANSFERASE,AST 15 U/L (15-37); BILIRUBIN TOTAL 0.4 mg/dL (0.2-1.0); BLOOD UREA NITROGEN,BUN 19 mg/dL (7-18); BUN/CREATININE RATIO 31.7 (14-18); C-REACTIVE PROTEIN <0.2 mg/dL (<1.0); CALCIUM 8.8 mg/dL (8.5-10.1); CARBON DIOXIDE,CO2 27 mEq/L (21-32); CHLORIDE,CL 104 mEq/L (98-107); CREATININE 0.6 mg/dL (0.55-1.02); ESTIMATED GFR 126 mL/min (>60); GLUCOSE RANDOM 79 mg/dL (70-99); POTASSIUM,K 4.1 mEq/L (3.5-5.1); PROTEIN TOTAL,TP 6.5 g/dl (6.4-8.2); SODIUM,NA 139 mEq/L (136-145)
[2023-06-21 13:04] LABS: RBC,URINE 0-5 /hpf (0-5); WBC,URINE 0-5 /hpf (0-5)
[2023-06-21 13:05] LABS: BACTERIA,URINE FEW /hpf (FEW); MUCUS,URINE FEW /hpf (FEW); SQUAMOUS EPITHELIAL CELLS,UR 0-5 /hpf (0-5)
[2023-06-21] MEDS ORDERED: Magnesium Citrate Solution 296 ML Bottle PO ONE (14:13)
[2023-06-21 14:42] LABS: C. TRACHOMATIS BY PCR NOT DETECTED; N. GONORRHOEAE BY PCR NOT DETECTED
[2023-06-21 15:28] VITALS: BP 105/75; PULSE 75
== END 2023-06-21 15:15 ==
LOC: JD.ED 11:11
DX: K59.00 Constipation, unspecified (principal); Z87.891 Personal history of nicotine dependence; Z79.899 Other long term (current) drug therapy; Z90.49 Acquired absence of other specified parts of digestive tract
CPT/HCPCS: 36415; 74018; 74018-26; 76830; 76830-26; 80053; 81001; 84703; 85025; 86140; 87491; 87591; 96374; 96375; 99284; 99285-25; A9270-GY; J1170; J2405; J3490; J7030

== ENCOUNTER 2023-10-11 12:40 | Emergency (ER) | payer MEDICAID ==
[2023-10-11] MEDS: Lactated Ringers 1,000 ML IV ONE (13:44)
[2023-10-11] MEDS: Ondansetron 4 MG/2 ML SDV IVPUSH ONE (13:44)
[2023-10-11] MEDS: Dicyclomine 10 MG Cap PO ONE (13:44)
[2023-10-11 13:53] LABS: APPEARANCE,URINE CLEAR (Clear); BILIRUBIN,URINE 1+ (Negative); COLOR,URINE DARK YELLOW (Yellow); GLUCOSE,URINE NEGATIVE (Negative); KETONES,URINE NEGATIVE (Negative); LEUKOCYTE ESTERASE,URINE NEGATIVE (Negative); NITRITE,URINE NEGATIVE (Negative); OCCULT BLOOD,URINE NEGATIVE (Negative); PH,URINE 6.5 (5.0-8.0); PROTEIN,URINE 2+ (Negative)
[2023-10-11 14:07] LABS: BASOPHILS PERCENT AUTO 0.2 % (0.0-1.0); HEMATOCRIT 41.2 % (37.0-47.0); IMMATURE GRAN ABSOLUTE AUTO 0.05 K/mm3 (0.00-0.05); IMMATURE GRAN PERCENT AUTO 0.5 % (0.0-0.4); LYMPHOCYTES ABSOLUTE AUTO 1.9 K/mm3 (1.0-4.8); LYMPHOCYTES PERCENT AUTO 17.5 % (24.0-44.0); MEAN CORPUSCULAR HEMOGLOBIN 31.8 pg (28.0-32.0); MEAN CORPUSCULAR VOLUME 93.6 fl (83.0-99.0); MEAN PLATELET VOLUME 10.5 fl (9.4-12.3); MONOCYTES ABSOLUTE AUTO 0.7 K/mm3 (0.0-0.8); MONOCYTES PERCENT AUTO 6.6 % (0.0-8.0); NEUTROPHILS PERCENT AUTO 75.2 % (41.0-71.0); PLATELET COUNT,PLT 328 K/mm3 (150-400); WHITE BLOOD CELL COUNT,WBC 10.68 K/mm3 (3.9-11.3)
[2023-10-11 14:24] LABS: CORONAVIRUS COVID-19 NAA NEGATIVE (NEGATIVE); INFLUENZA A NAA NEGATIVE (NEGATIVE)
[2023-10-11 14:24] LABS: BACTERIA,URINE FEW /hpf (FEW); MUCUS,URINE MANY /hpf (FEW); RBC,URINE 0-5 /hpf (0-5); WBC,URINE 0-5 /hpf (0-5)
[2023-10-11] MEDS ORDERED: Promethazine 6.25 MG/5 ML Liquid 10 ML UD Cup PO ONE (14:34)
[2023-10-11 14:50] LABS: A/G RATIO 1.1 (1-2); ALBUMIN 4.2 g/dl (3.4-5.0); ANION GAP 14.6 (5-15); BILIRUBIN TOTAL 0.9 mg/dL (0.2-1.0); BUN/CREATININE RATIO 24.4 (14-18); C-REACTIVE PROTEIN 0.05 mg/dL (<0.30); CALCIUM 9.5 mg/dL (8.5-10.1); CREATININE 0.9 mg/dL (0.55-1.02); EST CRCL DRUG DOSING (CG) 74.85 mL/min; MAGNESIUM 1.8 mg/dL (1.8-2.4); POTASSIUM,K 3.6 mEq/L (3.5-5.1)
[2023-10-11] MEDS: Promethazine 25 MG Tab PO ONE (15:07)
[2023-10-11 15:23] VITALS: BP 116/73; PULSE 74
== END 2023-10-11 15:24 | disposition home or self-care (01) ==
LOC: JD.ED 12:40
DX: K52.9 Noninfective gastroenteritis and colitis, unspecified (principal); J45.909 Unspecified asthma, uncomplicated; Z90.49 Acquired absence of other specified parts of digestive tract; Z79.899 Other long term (current) drug therapy; Z88.0 Allergy status to penicillin
CPT/HCPCS: 0240U; 36415; 80053; 81001; 83690; 83735; 84703; 85025; 86140; 96361; 96374; 99284; A9270; J2405; J7120; J8597; 99283

== ENCOUNTER 2023-10-13 10:52 | Emergency (ER) | payer MEDICAID ==
[2023-10-13] MEDS: Metoclopramide 10 MG/2 ML SDV IVPUSH ONE (11:33)
[2023-10-13] MEDS: Sodium Chloride 0.9% 1,000 ML IV STA (11:34)
[2023-10-13] MEDS: Ketorolac 30 MG/ML SDV IVPUSH ONE (11:34)
[2023-10-13 11:39] LABS: BASOPHILS PERCENT AUTO 0.1 % (0.0-1.0); EOSINOPHILS PERCENT AUTO 0.1 % (0.0-6.0); HEMATOCRIT 40.6 % (37.0-47.0); HEMOGLOBIN 13.9 gm/dl (12.0-16.0); IMMATURE GRAN ABSOLUTE AUTO 0.02 K/mm3 (0.00-0.05); IMMATURE GRAN PERCENT AUTO 0.3 % (0.0-0.4); LYMPHOCYTES ABSOLUTE AUTO 1.8 K/mm3 (1.0-4.8); LYMPHOCYTES PERCENT AUTO 23.6 % (24.0-44.0); MEAN CORPUSCULAR HEMOGLOBIN 31.7 pg (28.0-32.0); MEAN CORPUSCULAR HGB CONC 34.2 g/dl (32.0-36.0); MEAN CORPUSCULAR VOLUME 92.7 fl (83.0-99.0); MEAN PLATELET VOLUME 10.6 fl (9.4-12.3); MONOCYTES ABSOLUTE AUTO 0.6 K/mm3 (0.0-0.8); MONOCYTES PERCENT AUTO 7.5 % (0.0-8.0); NEUTROPHILS ABSOLUTE AUTO 5.2 K/mm3 (1.8-7.7); NEUTROPHILS PERCENT AUTO 68.4 % (41.0-71.0); PLATELET COUNT,PLT 274 K/mm3 (150-400); RED BLOOD CELL COUNT 4.38 M/mm3 (4.10-5.30); WHITE BLOOD CELL COUNT,WBC 7.63 K/mm3 (3.9-11.3)
[2023-10-13] MEDS: Sodium Chloride 0.9% 10 ML Syringe FLUSH PRN (11:40)
[2023-10-13 11:58] LABS: A/G RATIO 1.1 (1-2); ALANINE AMINOTRANSFERASE,ALT 39 U/L (14-59); ALKALINE PHOSPHATASE 64 U/L (46-116); ANION GAP 15.2 (5-15); ASPARTATE AMNIOTRANSFERASE,AST 26 U/L (15-37); BILIRUBIN TOTAL 0.9 mg/dL (0.2-1.0); BLOOD UREA NITROGEN,BUN 13 mg/dL (7-18); BUN/CREATININE RATIO 16.3 (14-18); CALCIUM 8.8 mg/dL (8.5-10.1); CARBON DIOXIDE,CO2 25 mEq/L (21-32); CHLORIDE,CL 98 mEq/L (98-107); CREATININE 0.8 mg/dL (0.55-1.02); EST CRCL DRUG DOSING (CG) 84.71 mL/min; ESTIMATED GFR 104 mL/min (>60); GLUCOSE RANDOM 126 mg/dL (70-99); LIPASE 22 U/L (16-77); MAGNESIUM 1.9 mg/dL (1.8-2.4); POTASSIUM,K 3.2 mEq/L (3.5-5.1); PROTEIN TOTAL,TP 7.7 g/dl (6.4-8.2); SODIUM,NA 135 mEq/L (136-145)
[2023-10-13 12:03] LABS: C-REACTIVE PROTEIN < 0.05 mg/dL (<0.30)
[2023-10-13 12:55] LABS: APPEARANCE,URINE CLEAR (Clear); BILIRUBIN,URINE NEGATIVE (Negative); COLOR,URINE YELLOW (Yellow); GLUCOSE,URINE NEGATIVE (Negative); KETONES,URINE NEGATIVE (Negative); LEUKOCYTE ESTERASE,URINE NEGATIVE (Negative); NITRITE,URINE NEGATIVE (Negative); OCCULT BLOOD,URINE TRACE-INTACT (Negative); PROTEIN,URINE TRACE (Negative)
[2023-10-13 13:18] LABS: RBC,URINE 0-5 /hpf (0-5); WBC,URINE 0-5 /hpf (0-5)
[2023-10-13 13:19] LABS: AMORPHOUS SEDIMENT,URINE MODERATE /hpf (NOT SEEN); BACTERIA,URINE FEW /hpf (FEW); MUCUS,URINE MODERATE /hpf (FEW)
[2023-10-13 14:28] VITALS: BP 130/104; PULSE 76
== END 2023-10-13 14:20 | disposition home or self-care (01) ==
LOC: JD.ED 10:52
DX: K52.9 Noninfective gastroenteritis and colitis, unspecified (principal); J45.909 Unspecified asthma, uncomplicated; Z79.899 Other long term (current) drug therapy; Z88.0 Allergy status to penicillin
CPT/HCPCS: 36415; 80053; 81001; 81025; 83690; 83735; 85025; 86140; 96361; 96374; 96375; 99284; J1885; J2765; J3490; J7030